=== PATIENT | male | born 1945 | race Caucasian/White ===

== ENCOUNTER 2017-07-11 18:06 | Inpatient (IN) ==
--- NOTE | 2017-07-11 18:27 | Emergency Department Report ---
Dizziness HPI - General Chief Complaint: Shortness of Breath/Dyspnea <Darryn Cobb - 07/11/17 22:21> Stated Complaint: fall <Darryn Cobb 07/11/17 22:21> Time Seen by Provider: 07/11/17 18:15 <Darryn Cobb Radha 07/11/17 22:21> Source: patient, EMS <Yuliana Dye 07/11/17 18:33> Mode of arrival: EMS <MarnieYuliana Pike 07/11/17 18:33> Limitations: no limitations <YvesclcarolYuliana Lashell Pike 07/11/17 18:33> - History of Present Illness HPI Narrative: Pt fell from a standing position while ambulating with cane. Pt denies he became dizzy or lightheaded. Pt then stayed on the floor to rest about 20 minutes when he became short of breath and diaphoretic which is when he called EMS. Pt was able to get him EMS self back to a standing position from the floor. EMS reports an initial SpO2 of 88 % on RA which resolved to mid 90s on 2 L/NC. Initial telemetry shows ST w/ PVCs. Pt states he had a heart cath about 2- 3 weeks ago which he reports the results as showing some scar tissue. This is his second fall this week. Pt reports using a cane for the last 2-3 weeks <Yuliana Dye 07/11/17 18:33> MD complaint: dizziness, difficulty walking <Yuliana Dye Glendy 07/11/17 18: 33> Onset (ago): minute(s) <Yuliana Dye Glendy 07/11/17 18:33> Timing: sudden onset <Yuliana Dye 07/11/17 18:33> Description: difficulty walking <Yuliana Dye Glendy 07/11/17 18:33> History of similar episodes: Yes (second fall this week) <Yuliana Dye 07/11/17 18:33> Severity: mild <Yuliana Dye 07/11/17 18:33> Relieving factors: nothing <Yuliana Dye 07/11/17 18:33> Exacerbating factors: nothing <Yuliana Dye 07/11/17 18:33> Associated symptoms: shortness of breath, syncope <Yuliana Dye 18:33> - Related Data Home Medications Medication Instructions Recorded Confirmed Aspirin [Aspir 81] 81 mg PO DAILY #0 08/28/09 07/11/17 Salt[place]-3 Fatty Acids/Fish Oil 1 cap PO DAILY #0 08/28/09 07/11/17 [[place] 3 1,000 mg Softgel] Trazodone HCl 50 mg PO HS #0 08/29/09 07/11/17 hydroCHLOROthiazide 25 tab PO DAILY #0 08/29/09 07/11/17 [Hydrochlorothiazide] Citalopram Hydrobromide 20 mg PO DAILY #0 03/31/12 07/11/17 [Citalopram HBr] tamsulosin 0.4 mg capsule 0.4 mg PO HS 90 Days #90 04/16/17 07/11/17 Fenofibrate Nanocrystallized 145 mg PO DAILY 07/11/17 07/11/17 [Fenofibrate] Gabapentin 600 mg PO AM 07/11/17 07/11/17 Gabapentin [Gabapentin] 900 mg PO PM 07/11/17 07/11/17 Metoprolol Succinate 25 mg PO WS 07/11/17 07/11/17 Metoprolol Succinate 50 mg PO AM 07/11/17 07/11/17 Potassium Chloride [K-Tab ER] 20 meq PO BID 07/11/17 07/11/17 Previous Rx's Medication Instructions Recorded zolpidem 10 mg tablet 10 mg PO HS #90 tab 06/22/17 Lasix (Furosemide) 40 mg tablet 40 mg PO BID #60 tab 07/09/17 <Darryn Cobb 07/11/17 22:21> Allergies Allergy/AdvReac Type Severity Reaction Status Date / Time ampicillin Allergy Intermediate RASH Verified 07/11/17 18:32 <Darryn Cobb 07/11/17 22:21> Review of Systems All systems: reviewed and negative except as stated <Yuliana Dye 07/19 18:33> Cardiovascular: Reports: syncope. Denies: chest pain, palpitations, dyspnea on exertion <Yuliana Dye 07/11/17 18:33> Respiratory: Reports: dyspnea <Yuliana Dye 07/11/17 18:33> FOR[facility]LY [facility] Patient Stated Medical History Glaucoma Yes Cardiac Arrhythmia Yes Congestive Heart Failure Yes Hypertension Yes Other GI Yes: Obesity Hx Benign Prostatic Yes Hyperplasia Hx Kidney Stones Yes Osteoarthritis Yes Other Behavioral Health Yes: difficulty sleeping Clinic Medical History (Last Reviewed 04/16/17 @ 14:36 by PIPE Saavedra) Glaucoma (Chronic Medical) HTN (hypertension) (Chronic Medical) High triglycerides (Chronic Medical) Kidney stones (Chronic Medical) Lumbar disc disease (Chronic Medical) Obesity (Chronic Medical) Osteoarthritis of left hip (Chronic Medical) <Darryn Cobb 07/11/17 22:21> Surgical History: L hip replacement <Yuliana Dye 07/11/17 18:33> Family History: Family History (Last Reviewed 04/16/17 @ 14:36 by PIPE Saavedra) Father , 72 Myocardial infarct Mother , 59 Myocardial infarct <Darryn Cobb 07/11/17 22:21> - Social History Smoking status: Never smoker <Yuliana Dye 07/11/17 18:33> Physical Exam - Limitations Limitations: no limitations <Yuliana Dye 07/11/17 18:33> - General General appearance: alert, in distress (mild distress) <Yuliana Dye 07/11/17 18:33> - Normal Exams: Head:: Normocephalic without trauma <Yuliana Dye 07/11/17 18:33> Eyes:: Pupils are PERRLA w/ EOMI <Yuliana Dye 07/11/17 18:33> ENMT:: No facial trauma <Yuliana Dye 07/11/17 18:33> Neck:: Full range of motion <Yuliana Dye 07/11/17 18:33> Chest/Respirations:: Clear all suarez, with good airflow (sightl tachypnea) < Yuliana Dye 07/11/17 18:38> Abdomen:: Bowel sounds positive, soft, non-tender, non-distended <Yuliana Dye 07/11/17 18:33> Musculoskeletal:: No tenderness, or deformity noted, good range of motion < Yuliana Dye 07/11/17 18:33> Neurological:: Patient is alert, and oriented <Yuliana Dye 07/11/17 18:33> Psychiatric:: Patient exhibits, appropriate attention, emotion and affect < Yuliana Dye 07/11/17 18:33> - Cardiovascular Cardiovascular exam: Present: tachycardia, irregular rhythm <Yuliana Dye 07/11/17 18:33> - Expanded Skin Exam Type of lesion: Present: abrasion <Yuliana Dye 07/11/17 18:33> Distribution: RLE <Yuliana Dye 07/11/17 18:33> Description: Present: erythematous (Ecchymotic abrasion to left toe and anterior left foot, Ulcerated scabbed wound to right ankle from previous fall) <Yuliana Dye 07/11/17 18:33> Course - Consultations Consultation #1: Dr Vazquez <Yuliana Dye 07/11/17 20:18> Time: 19:40 <Yuliana Dye 07/11/17 20:18> Consultation #2: Dr Marte <Yuliana Dye 07/11/17 20:18> Time: 19:50 (admit med tele) <Yuliana Dye 07/11/17 20:18> Vital Signs Temperature 98.3 F 07/11/17 18:10 Temperature 98.3 F 07/11/17 18:10 Pulse Rate 118 H 07/11/17 18:15 Respiratory Rate 27 H 07/11/17 18:15 Blood Pressure 148/72 H 07/11/17 18:15 Pulse Oximetry 92 07/11/17 18:15 <Darryn Cobb - 07/11/17 22:21> Vital Signs Temperature 98.3 F 07/11/17 18:10 Temperature 98.3 F 07/11/17 18:10 Pulse Rate 118 H 07/11/17 18:15 Respiratory Rate 27 H 07/11/17 18:15 Blood Pressure 148/72 H 07/11/17 18:15 Pulse Oximetry 92 07/11/17 18:15 <Yuliana Dye 07/11/17 18:38> Dizziness - MDM Narrative Medical decision making narrative: Due to elevated D-dimer CTA chest is ordered and patient is unable to tolerate CTA. Accepting physician is notified and Lovenox 1 mg / kg is ordered by accepting provider and CTA will be obtained when patient is able to tolerate further evaluation and treatment. Lasix and potassium supplementation given in ED. <Darryn Cobb - 07/11/17 22:21> Pt labs reviewed, FLuids started and PO potassium given. EKG shows ST with a 1st degree AV block as well as a left fasicular block. ALthough CXR was a poor inspriratory film DR Cobb reads as potential fluid overload. D DImer elevated will follow up with Ct. Dr George mccormick wishes to be consulted after admit. Dr Pedersen wishes to admit to medical tele. <Yuliana Dye - 07/11/17 20:18> - Differential Diagnosis Likely: benign paroxysmal positional vertigo, orthostatic hypotension, transient cerebral ischemia <Yuliana Dye - 07/11/17 18:33> - Medical Records Attestation: I reviewed the patient's medical records. <Yuliana Dye - 07/11/17 20:18> - Lab Data Attestation: I reviewed the patient's lab results. <Yuliana Dye 07/11 20:18> Result diagrams: 07/11/17 18:16 07/11/17 22:02 <Darryn Cobb - 07/11/17 22:21> Lab Results 07/11/17 07/11/17 07/11/17 Range/Units 18:16 18:16 18:16 WBC 10.3 (4.5-11.0) T/MM3 RBC 4.89 (4.50-5.90) M/MM3 Hgb 15.4 (13.5-17.5) GM/DL Hct 45.3 (41-53) % MCV 92.6 (80-100) UM3 MCH 31.5 (26-34) UUG MCHC 34.0 (31-37) GM/DL RDW Std Deviation 44.0 (36.9-50.2) FL Plt Count 200 (130-400) T/MM3 MPV 9.6 (9.4-12.4) UM3 Immature Gran % (Auto) 0.2 (0.0-0.5) % Neut % (Auto) 45.6 (33-66) % Lymph % (Auto) 42.6 (23-45) % Sampson % (Auto) 9.6 H (0-9.0) % Eos % (Auto) 1.5 (0-4) % Baso % (Auto) 0.5 (0-2) % Neut # 4.7 (1.8-7.7) T/MM3 Lymph # 4.4 (1-4.8) T/MM3 Sampson # 1.0 H (0-0.8) T/MM3 Eos # 0.2 (0-0.5) T/MM3 Baso # 0.1 (0-0.2) T/MM3 Abs Immat Gran (auto) 0.02 (0.00-0.03) T/MM3 D-Dimer (0-230) NG/ML Turbidity < 20 (0-20) Sodium 148 H (134-144) MEQ/L Potassium 3.0 L (3.6-5) MEQ/L Chloride 102 (98-107) MEQ/L Carbon Dioxide 33 H (22-30) MEQ/L Anion Gap 13 (5-15) MEQ/L BUN 27.0 H (9-20) MG/DL Creatinine 1.2 (0.8-1.5) MG/DL GFR Calculation 60 BUN/Creatinine Ratio 23 (6-26) RATIO Glucose 159 H (75-110) MG/DL Calculated Osmolality 292 H (261-280) MOSM/KG Calcium 11.5 H (8.4-10.2) MG/DL Magnesium (1.6-2.3) MG/DL Total Bilirubin 1.00 (0.20-1.30) MG/DL Icterus Index < 2 (0-7) AST 36 (17-59) U/L ALT 36 (21-72) U/L Alkaline Phosphatase 50 (38-126) U/L Troponin I 0.019 (0-0.12) ng/ml B-Natriuretic Peptide 277 H (0-175) pg/mL Total Protein 8.4 H (6.3-8.2) G/DL Albumin 4.7 (3.5-5.0) G/DL Globulin 3.7 H (2.4-3.6) G/DL Albumin/Globulin Ratio 1.3 (1.1-2.2) RATIO Specimen Hemolysis < 15.0 (0-25) 07/11/17 07/11/17 Range/Units 18:16 18:16 WBC (4.5-11.0) T/MM3 RBC (4.50-5.90) M/MM3 Hgb (13.5-17.5) GM/DL Hct (41-53) % MCV (80-100) UM3 MCH (26-34) UUG MCHC (31-37) GM/DL RDW Std Deviation (36.9-50.2) FL Plt Count (130-400) T/MM3 MPV (9.4-12.4) UM3 Immature Gran % (Auto) (0.0-0.5) % Neut % (Auto) (33-66) % Lymph % (Auto) (23-45) % Sampson % (Auto) (0-9.0) % Eos % (Auto) (0-4) % Baso % (Auto) (0-2) % Neut # (1.8-7.7) T/MM3 Lymph # (1-4.8) T/MM3 Sampson # (0-0.8) T/MM3 Eos # (0-0.5) T/MM3 Baso # (0-0.2) T/MM3 Abs Immat Gran (auto) (0.00-0.03) T/MM3 D-Dimer 640 H (0-230) NG/ML Turbidity (0-20) Sodium (134-144) MEQ/L Potassium (3.6-5) MEQ/L Chloride (98-107) MEQ/L Carbon Dioxide (22-30) MEQ/L Anion Gap (5-15) MEQ/L BUN (9-20) MG/DL Creatinine (0.8-1.5) MG/DL GFR Calculation BUN/Creatinine Ratio (6-26) RATIO Glucose (75-110) MG/DL Calculated Osmolality (261-280) MOSM/KG Calcium (8.4-10.2) MG/DL Magnesium 2.0 (1.6-2.3) MG/DL Total Bilirubin (0.20-1.30) MG/DL Icterus Index (0-7) AST (17-59) U/L ALT (21-72) U/L Alkaline Phosphatase (38-126) U/L Troponin I (0-0.12) ng/ml B-Natriuretic Peptide (0-175) pg/mL Total Protein (6.3-8.2) G/DL Albumin (3.5-5.0) G/DL Globulin (2.4-3.6) G/DL Albumin/Globulin Ratio (1.1-2.2) RATIO Specimen Hemolysis (0-25) <Cobb,Darryn C - 07/11/17 22:21> Lab Results 07/11/17 07/11/17 07/11/17 Range/Units 18:16 18:16 18:16 WBC 10.3 (4.5-11.0) T/MM3 RBC 4.89 (4.50-5.90) M/MM3 Hgb 15.4 (13.5-17.5) GM/DL Hct 45.3 (41-53) % MCV 92.6 (80-100) UM3 MCH 31.5 (26-34) UUG MCHC 34.0 (31-37) GM/DL RDW Std Deviation 44.0 (36.9-50.2) FL Plt Count 200 (130-400) T/MM3 MPV 9.6 (9.4-12.4) UM3 Immature Gran % (Auto) 0.2 (0.0-0.5) % Neut % (Auto) 45.6 (33-66) % Lymph % (Auto) 42.6 (23-45) % Sampson % (Auto) 9.6 H (0-9.0) % Eos % (Auto) 1.5 (0-4) % Baso % (Auto) 0.5 (0-2) % Neut # 4.7 (1.8-7.7) T/MM3 Lymph # 4.4 (1-4.8) T/MM3 Sampson # 1.0 H (0-0.8) T/MM3 Eos # 0.2 (0-0.5) T/MM3 Baso # 0.1 (0-0.2) T/MM3 Abs Immat Gran (auto) 0.02 (0.00-0.03) T/MM3 D-Dimer (0-230) NG/ML Turbidity < 20 (0-20) Sodium 148 H (134-144) MEQ/L Potassium 3.0 L (3.6-5) MEQ/L Chloride 102 (98-107) MEQ/L Carbon Dioxide 33 H (22-30) MEQ/L Anion Gap 13 (5-15) MEQ/L BUN 27.0 H (9-20) MG/DL Creatinine 1.2 (0.8-1.5) MG/DL GFR Calculation 60 BUN/Creatinine Ratio 23 (6-26) RATIO Glucose 159 H (75-110) MG/DL Calculated Osmolality 292 H (261-280) MOSM/KG Calcium 11.5 H (8.4-10.2) MG/DL Magnesium (1.6-2.3) MG/DL Total Bilirubin 1.00 (0.20-1.30) MG/DL Icterus Index < 2 (0-7) AST 36 (17-59) U/L ALT 36 (21-72) U/L Alkaline Phosphatase 50 (38-126) U/L Troponin I 0.019 (0-0.12) ng/ml B-Natriuretic Peptide 277 H (0-175) pg/mL Total Protein 8.4 H (6.3-8.2) G/DL Albumin 4.7 (3.5-5.0) G/DL Globulin 3.7 H (2.4-3.6) G/DL Albumin/Globulin Ratio 1.3 (1.1-2.2) RATIO Specimen Hemolysis < 15.0 (0-25) 07/11/17 07/11/17 Range/Units 18:16 18:16 WBC (4.5-11.0) T/MM3 RBC (4.50-5.90) M/MM3 Hgb (13.5-17.5) GM/DL Hct (41-53) % MCV (80-100) UM3 MCH (26-34) UUG MCHC (31-37) GM/DL RDW Std Deviation (36.9-50.2) FL Plt Count (130-400) T/MM3 MPV (9.4-12.4) UM3 Immature Gran % (Auto) (0.0-0.5) % Neut % (Auto) (33-66) % Lymph % (Auto) (23-45) % Sampson % (Auto) (0-9.0) % Eos % (Auto) (0-4) % Baso % (Auto) (0-2) % Neut # (1.8-7.7) T/MM3 Lymph # (1-4.8) T/MM3 Sampson # (0-0.8) T/MM3 Eos # (0-0.5) T/MM3 Baso # (0-0.2) T/MM3 Abs Immat Gran (auto) (0.00-0.03) T/MM3 D-Dimer 640 H (0-230) NG/ML Turbidity (0-20) Sodium (134-144) MEQ/L Potassium (3.6-5) MEQ/L Chloride (98-107) MEQ/L Carbon Dioxide (22-30) MEQ/L Anion Gap (5-15) MEQ/L BUN (9-20) MG/DL Creatinine (0.8-1.5) MG/DL GFR Calculation BUN/Creatinine Ratio (6-26) RATIO Glucose (75-110) MG/DL Calculated Osmolality (261-280) MOSM/KG Calcium (8.4-10.2) MG/DL Magnesium 2.0 (1.6-2.3) MG/DL Total Bilirubin (0.20-1.30) MG/DL Icterus Index (0-7) AST (17-59) U/L ALT (21-72) U/L Alkaline Phosphatase (38-126) U/L Troponin I (0-0.12) ng/ml B-Natriuretic Peptide (0-175) pg/mL Total Protein (6.3-8.2) G/DL Albumin (3.5-5.0) G/DL Globulin (2.4-3.6) G/DL Albumin/Globulin Ratio (1.1-2.2) RATIO Specimen Hemolysis (0-25) <Yuliana Dye 07/11/17 18:38> - Radiology Data Attestation: I reviewed the patient's radiology results. <Yuliana Dye 07/11/17 20:18> read per Dr Cobb <Yuliana Dye 07/11/17 20:18> - EKG Data EKG #1 Rate: tachycardia <Yuliana Dye 07/11/17 20:18> Heart block present: 1st Degree <Yuliana Dye 07/11/17 20:18> Ectopy: PVC <Yuliana Dye 07/11/17 20:18> Disposition Clinical Impression: Hypoxia, Hypokalemia Congestive heart failure Qualifiers: Congestive heart failure type: unspecified congestive heart failure type Congestive heart failure chronicity: chronic Qualified Code(s): I50.9 - Heart failure, unspecified <Darryn Cobb 07/11/17 22:21> Disposition: 02 To [facility] [place] Acute Care <Darryn Cobb 07/11/17 22:21> Condition: Stable for Transport <Darryn Cobb 07/11/17 22:21> Prescriptions: No Action hydroCHLOROthiazide [Hydrochlorothiazide] 25 tab PO DAILY #0 Trazodone HCl 50 mg PO HS #0 Metoprolol Succinate 25 mg PO WS Gabapentin [Gabapentin] 900 mg PO PM Gabapentin 600 mg PO AM Potassium Chloride [K-Tab ER] 20 meq PO BID Fenofibrate Nanocrystallized [Fenofibrate] 145 mg PO DAILY Aspirin [Aspir 81] 81 mg PO DAILY #0 Saltillo-3 Fatty Acids/Fish Oil [[place] 3 1,000 mg Softgel] 1 cap PO DAILY #0 Citalopram Hydrobromide [Citalopram HBr] 20 mg PO DAILY #0 Metoprolol Succinate 50 mg PO AM zolpidem 10 mg tablet 10 mg PO HS #90 tab Lasix (Furosemide) 40 mg tablet 40 mg PO BID #60 tab <Darryn Cobb 07/11 22:21> Referrals: Frank Bajwa MD [Family Provider] - <Darryn Cobb 22:21> Time of Disposition: 21:48 <Yuliana Dye 07/11/17 21:48> - Seen By: midlevel <Yuliana Dye 07/11/17 21:48>
[2017-07-11] MEDS ORDERED: NS 1,000 ML IV SCH (19:00)
--- OUTSIDE RECORDS SUMMARY | 2017-07-11 19:27 | External Medical Summary | Referral Summary ---
:1945 Author Organization [facility] Address [address] [place] [address] YADIEL Schreiber [id number] Care Team Providers Name Role Phone Arnulfo Mauricio Cadet Primary Care Physician Encounter VC Date(s): 10/30/15 - 10/30/15 [facility] [address] [place] [address] YADIEL Schreiber [phone] [place] Discharge Diagnosis: Kidney stone Discharge Disposition: 01-Home or Self Care Attending Physician: Jabari Rodgers JR, MD Admitting Physician: Jabari Rodgers JR, MD Vital Signs Most recent to oldest [Reference Range]: 1 Peripheral Pulse Rate [60-100 bpm] 87 bpm (10/30/15 11:11 AM) Blood Pressure [90-140/60-90 mmHg] 126/68 mmHg (10/30/15 11:11 AM) Problem List Condition Effective Dates Status Health Status Informant Ineffective airway Active clearance(Confirmed)1 Microscopic hematuria(Confirmed) Active Morbid obesity(Confirmed) Active 1Problem added automatically by system based on initiation of Ineffective Airway Clearance Plan of Care Allergies, Adverse Reactions, Alerts Substance Reaction Severity Status ampicillin Rash Active Medications allopurinol 300 mg oral tablet See Instructions, Take 1 tablet by mouth every day, # 90 tabs, eRx: [facility], Take 1 tablet by mouth every day Start Date: 09/07/15 Status: Orderedaspirin 81 mg oral tablet 81 mg 1 tabs, Oral, Daily, 0 Refill(s) Start Date: 08/21/14 Status: Orderedcitalopram 20 mg oral tablet 20 mg 1 tabs, Oral, Daily, 0 Refill(s) Start Date: 08/21/14 Status: OrderedCPAP Machine (DME) See Instructions, # 1 Each, 0 Refill(s), Supply Start Date: 09/21/15 Status: Ordereddorzolamide-timolol 2.23%-0.68% ophthalmic solution 1 drops, Eye-Both, BID, 0 Refill(s) Start Date: 07/11/15 Status: Orderedfenofibrate 145 mg oral tablet 145 mg 1 tabs, Oral, Daily, 0 Refill(s) Start Date: 07/11/15 Status: OrderedFish Oil 2,000 mg, Oral, BID, 0 Refill(s) Start Date: 08/21/14 Status: Orderedgabapentin 300 mg oral capsule 600 mg 2 caps, Oral, BID, 1200,2100, 0 Refill(s) Start Date: 08/15/14 Status: OrderedHome Oxygen (DME) See Instructions, # 1 Each, 0 Refill(s), Supply Start Date: 09/21/15 Status: Orderedhydrochlorothiazide 25 mg oral tablet 25 mg 1 tabs, Oral, Daily, 0 Refill(s) Start Date: 08/15/14 Status: OrderedLumigan 0.01% ophthalmic solution 1 drops, Eye-Both, Bedtime (once a day), 0 Refill(s) Start Date: 07/11/15 Status: Orderedmetoprolol tartrate 50 mg oral tablet See Instructions, 50mg in AM 25 at hs, 0 Refill(s) Start Date: 09/21/15 Status: Orderedmultivitamin 1 tabs, Oral, Daily, 0 Refill(s) Start Date: 07/11/15 Status: OrderedNiaspan ER 500 mg oral tablet, extended release 500 mg 1 tabs, Oral, Bedtime (once a day), 0 Refill(s) Start Date: 08/21/14 Status: Orderedtamsulosin 0.4 mg oral capsule See Instructions, Take 1 capsule by mouth daily, # 90 caps, eRx: [facility], Take 1 capsule by mouth daily Start Date: 09/07/15 Status: OrderedtraZODone 50 mg oral tablet 50 mg 1 tabs, Oral, Bedtime (once a day), 0 Refill(s) Start Date: 08/21/14 Status: Orderedzolpidem 10 mg oral tablet 10 mg 1 tabs, Oral, Bedtime (once a day), 0 Refill(s) Start Date: 08/21/14 Status: Ordered Results No data available for this section Immunizations Vaccine Date Refusal Reason pneumococcal 23-polyvalent vaccine 07/11/15 Procedures Procedure Date Related Diagnosis Body Site Lithotripsy of kidney 10/10/15 Cystoscopy1 10/03/15 Lithotripsy of kidney2 10/03/15 Cystoscopy Insertion-(R) double J stent Renal lithotripsy-(R) Surgery-Transurethral removal of Right double J stent 1Insertion of right stent.2Right. Social History Social History Type Response Smoking Status Never smoker Assessment and Plan No data available for this section
--- OUTSIDE RECORDS SUMMARY | 2017-07-11 19:27 | External Medical Summary | Referral Summary ---
:1945 Author Organization [facility] Address [address] [place] [address] YADIEL Schreiber [phone] Care Team Providers Name Role Phone Mauricio Arredondo Primary Care Physician Encounter VC Date(s): 11/15/15 - 11/15/15 [facility] [address] [place] [address] YADIEL Schreiber [phone] [place] Discharge Diagnosis: Hyperuricemia Discharge Diagnosis: Right kidney stone Discharge Diagnosis: Kidney stones Discharge Diagnosis: Morbid obesity Discharge Disposition: 01-Home or Self Care Attending Physician: Jabari Rodgers JR, MD Admitting Physician: Jabari Rodgers JR, MD Referring Physician: Mauricio Arredondo MD Vital Signs No data available for this section Problem List Condition Effective Dates Status Health [...] Smoking Status Never smoker Assessment and Plan Extracted from: Title: Ambulatory Patient Education Author: Jabari Rodgers JR, MD Date: Follow Up With: Where: When: Mauricio Bower [address] [place], [place] [id number] Business (1) Within 3 to 5 days Comments: Follow Up With: Where: When: Jabari Rodgers [address] [place] [address] Drive; [place] [address] [employer] (1) In 6 months 05/15/2016 Comments: Extracted from: Title: Office Visit Note Author: Jabari Rodgers JR, MD Date: 11/15/15 Assessment/Plan 1.Kidney stones, Kidney stone, Right kidney stone I reviewed the images of the KUB x-ray today I could not see any difference stone present on the right or left kidney. Patient instructed to drink 8-10 glasses of liquids a day, reduce intake of c affeine, red meat, nuts and too much salted food. I would like to see him again in 6 monthsrepeat KUB x-ray on coming back. Ordered: Kidney Stone Analysis-[place] Postoperative Est [id number] XR Abdomen AP 2.Hyperuricemia 3.Morbid obesity Patient had lost 20 pounds since I saw him
--- OUTSIDE RECORDS SUMMARY | 2017-07-11 19:27 | External Medical Summary | Referral Summary ---
:1945 [address] [facility] Address [address] [place] [address] Care Team Providers Name Role Phone Mauricio Arredondo Primary Care Physician Encounter VC Date(s): 07/11/15 - 07/13/[address] [facility] [address], [place] [address] Discharge Diagnosis: Interstitial lung disease Discharge Diagnosis: Elevated diaphragm Final: POSTINFLAMMATORY PULMONARY FIBROSIS Final: Body Mass Index 40.0-44.9, Adult Final: PURE HYPERGLYCERIDEMIA Final: MORBID OBESITY Final: Insomnia, unspecified Final: DEPRESSIVE DISORDER, NOT ELSEWHERE CLASSIFIED Final: MONONEURITIS OF UNSPECIFIED SITE Final: UNSPECIFIED ESSENTIAL HYPERTENSION Final: NEED FOR PROPHYLACTIC VACCINATION AGAINST STREPTOCOCCUS PNEUMONIAE [ PNEUMOCOCCUS] Discharge Disposition: 01-Home or Self Care Attending Physician: Olayinka Rodriguez MD Admitting Physician: Olayinka Rodriguez MD Vital Signs Most recent to oldest [Reference Range]: 1 Temperature Oral [35.8-37.3 degC] 36.8 degC (07/13/15 4:00 PM) Peripheral Pulse Rate [60-100 bpm] 79 bpm (07/13/15 4:00 PM) Heart Rate Monitored [60-100 bpm] 69 bpm (07/12/15 3:33 AM) Respiratory Rate [14-20 br/min] 20 br/min (07/13/15 4:00 PM) Blood Pressure [90-140/60-90 mmHg] 122/73 mmHg (07/13/15 4:00 PM) Mean Arterial Pressure, Cuff 112 mmHg (07/11/15 5:00 PM) SpO2 94 % (07/13/15 4:00 PM) Problem List Condition Effective Dates Status Health Status Informant Ineffective airway Active clearance(Confirmed)1 Microscopic hematuria(Confirmed) Active Morbid obesity(Confirmed) Active 1Problem added automatically by system based on initiation of Ineffective Airway Clearance Plan of Care Allergies, Adverse Reactions, Alerts Substance Reaction Severity Status ampicillin Rash Active Medications allopurinol 300 mg oral tablet See Instructions, Take 1 tablet by mouth every day, # 90 tabs, 1 Refill(s), eRx : [facility], Take 1 tablet by mouth every day Start Date: 12/10/15 Status: Orderedaspirin 81 mg oral tablet 81 [...] capsule by mouth daily, # 90 caps, 1 Refill(s), eRx: [facility],Take 1 capsule by mouth daily Start Date: 12/10/15 Status: OrderedtraZODone 50 mg oral tablet 50 mg 1 tabs, Oral, Bedtime (once a day), 0 Refill(s) Start Date: 08/21/14 Status: Orderedzolpidem 10 mg oral tablet 10 mg 1 tabs, Oral, Bedtime (once a day), 0 Refill(s) Start Date: 08/21/14 Status: Ordered Results Blood Gases Most recent to oldest [Reference Range]: 1 pH [7.35-7.45] 7.42 (07/13/15 10:45 AM) pCO2 Art [35-45 mmHg] 39 mmHg (07/13/15 10:45 AM) Bicarbonate [22-26 mEq/L] 25 mEq/L (07/13/15 10:45 AM) Base Excess Art [0-2] 0 (07/13/15 10:45 AM) O2 Sat Art [90.0-97.0 %] 92.1 % (07/13/15 10:45 AM) pO2 Art [80-100 mmHg] 63 mmHg *LOW* (07/13/15 10:45 AM) O2 Panel Room Air (07/13/15 10:45 AM) Spec Site Radial-L (07/13/15 10:45 AM) Hematology Most recent to oldest [Reference Range]: 1 WBC [4.8-10.8 10*3/uL] 8.4 10*3/uL (07/11/15 12:16 PM) RBC [4.60-6.20] 4.83 (07/11/15 12:16 PM) Hgb [14.0-18.0 gm/dL] 16.1 gm/dL (07/11/15 12:16 PM) Hct [42.0-52.0 %] 45.7 % (07/11/15 12:16 PM) MCV [82.0-99.0 fL] 94.6 fL (07/11/15 12:16 PM) MCH [27.0-32.0 pg] 33.3 pg *HI* (07/11/15 12:16 PM) MCHC [32.0-36.0 gm/dL] 35.2 gm/dL (07/11/15 12:16 PM) RDW [11.5-14.5 %] 13.3 % (07/11/15 12:16 PM) Platelet [150-400 10*3/uL] 160 10*3/uL (07/11/15 12:16 PM) MPV [9.4-12.3 fL] 9.8 fL (07/11/15:16 PM) Immature Granulocytes [0.0-1.0 %] 0.1 % (07/11/15:16 PM) Neutrophils [51-75 %] 42 % *LOW* (07/11/15:16 PM) Lymphocytes [20-46 %] 45 % (07/11/15 12:16 PM) Monocytes [4-11 %] 11 % (07/11/15 12:16 PM) Eosinophils [0-4 %] 1 % (07/11/15 12:16 PM) Basophils [0-2 %] 1 % (07/11/15:16 PM) Neutro Absolute [1.90-7.00 10*3] 3.47 10*3 (07/11/15 12:16 PM) Lymph Absolute [0.80-3.30 10*3] 3.79 10*3 *HI* (07/11/15 12:16 PM) [place] Absolute [0.30-1.00 10*3] 0.91 10*3 (07/11/15 12:16 PM) Eos Absolute [0.00-0.50 10*3] 0.12 10*3 (07/11/15 12:16 PM) Baso Absolute [0.00-0.20 10*3] 0.05 10*3 (07/11/15 12:16 PM) Nucleated RBC Automated [0 /100 WBC] 0.0 /100 WBC (07/11/15 12:16 PM) Chemistry Most recent to oldest [Reference Range]: 1 Sodium Lvl [136-144 mEq/L] 143 mEq/L (07/12/15 5:21 AM) Potassium Lvl [3.6-5.1 mEq/L] 3.4 mEq/L *LOW* (07/12/15:21 AM) Chloride [99-109 mEq/L] 106 mEq/L (07/12/15 5:21 AM) CO2 [22-32 mEq/L] 29 mEq/L (07/12/15:21 AM) AGAP [3-20] 8 (07/12/15:21 AM) BUN [4-20 mg/dL] 18 mg/dL (07/12/15:21 AM) Glucose Lvl [70-100 mg/dL] 101 mg/dL *HI* (07/12/15: AM) Creatinine Lvl [0.64-1.27 mg/dL] 0.90 mg/dL (07/12/15:21 AM) eGFR [>60] >60 1 (07/12/15: AM) Calcium Lvl [8.6-10.0 mg/dL] 9.6 mg/dL (07/12/15:21 AM) Albumin Lvl [3.5-4.8 gm/dL] 3.9 gm/dL (07/12/15:21 AM) Total Protein [6.1-7.9 gm/dL] 7.5 gm/dL (07/11/15 12:16 PM) Globulin [1.9-4.3 gm/dL] 3.1 gm/dL (07/11/15 12:16 PM) ALT [17-63 U/L] 24 U/L (07/11/15 12:16 PM) AST [15-41 U/L] 25 U/L (07/11/15 12:16 PM) Alk Phos [26-104 U/L] 31 U/L (07/11/15 12:16 PM) Bili Total [0.2-1.2 mg/dL] 1.1 mg/dL 2 (07/11/15 12:16 PM) Magnesium Lvl [1.8-2.5 mg/dL] 1.8 mg/dL (07/12/15 5:21 AM) Phosphorus [2.4-4.7 mg/dL] 2.7 mg/dL 3 (07/12/15 5:21 AM) BNP [0-99 pg/mL] 82 pg/mL (07/11/15 12:16 PM) Troponin [<0.06 ng/mL] <0.05 ng/mL (07/11/15 12:16 PM) Chol [0-200 mg/dL] 174 mg/dL (07/12/15 5:21 AM) Trig [0-150 mg/dL] 584 mg/dL *HI* (07/12/15 5:21 AM) HDL [>40 mg/dL] 27 mg/dL *ABN* (07/12/15 5:21 AM) LDL [0-100] INVALID 4 (07/12/15 5:21 AM) VLDL Cholesterol [0-30] INVALID (07/12/15 5:21 AM) Cardiac Risk [0.0-5.7] 6.4 *HI* (07/12/15 5:21 AM) TSH with Reflex Free T4 [0.35-5.50] 1.23 (07/11/15 12:16 PM) 1Result Comment: Multiply eGFR results by 1.21 for race.2Result Comment: Naproxen, specifically the metabolite O-desmethylnaproxen, may cause spurious elevation in Total Bilirubin levels.3Result Comment: High dosages of liposomal Amphotericin B (AmBisome) therapy or other drug preparations that use a liposomal envelope to facilitate drug delivery may cause falsely elevated results for phosphorus.4Result Comment: LDL and VLDL are invalid with Triglyceride greater than 400. Immunizations Vaccine Date Refusal Reason pneumococcal 23-polyvalent [...]
--- OUTSIDE RECORDS SUMMARY | 2017-07-11 19:27 | External Medical Summary | Referral Summary ---
:1945 Author Organization [facility] Address [address] [place] [address] Y[place] Schreiber [address] Care Team Providers Name Role Phone Arnulfo Mauricio Cadet Primary Care Physician Encounter VC Date(s): 03/20/15 - 03/20/15 [facility] [address] [place] [address] [place] Schre[place] [phone] [place] Discharge Diagnosis: Kidney stones Discharge Disposition: 01-Home or Self Care Attending Physician: Jabari Rodgers JR, MD Admitting Physician: Jabari Rodgers JR, MD Referring Physician: Rory Higgins Vital Signs Most recent to oldest [Reference Range]: 1 Peripheral Pulse Rate [60-100 bpm] 72 bpm (03/20/15 2:27 PM) Blood Pressure [90-140/60-90 mmHg] 154/78 mmHg *HI* (03/20/15 2:27 PM) Problem List Condition Effective Dates Status Health Status Informant Ineffective airway Active clearance(Confirmed)1 Microscopic hematuria(Confirmed) Active Morbid obesity(Confirmed) Active 1Problem added automatically by system based on initiation of Ineffective Airway Clearance Plan of Care Allergies, Adverse Reactions, Alerts Substance Reaction Severity Status ampicillin Rash Active Medications allopurinol 300 mg, Oral, Daily, 0 Refill(s) Start Date: 07/11/15 Status: Orderedaspirin 81 mg oral tablet 81 mg 1 tabs, Oral, Daily, 0 Refill(s) Start Date: 08/21/14 Status: Orderedatenolol 50 mg, Oral, BID, 0 Refill(s) Start Date: 07/11/15 Status: Orderedcitalopram 20 mg oral tablet 20 mg 1 tabs, Oral, Daily, 0 Refill(s) Start Date: 08/21/14 Status: Ordereddorzolamide-timolol 2.23%-0.68% ophthalmic solution 1 drops, Eye-Both, BID, 0 Refill(s) Start Date: 07/11/15 Status: Orderedfenofibrate 145 mg oral tablet 145 mg 1 tabs, Oral, Daily, 0 Refill(s) Start Date: 07/11/15 Status: OrderedFish Oil 2,000 mg, Oral, BID, 0 Refill(s) Start Date: 08/21/14 Status: Orderedgabapentin 300 mg oral capsule 600 mg 2 caps, Oral, BID, 1200,2100, 0 Refill(s) Start Date: 08/15/14 Status: Orderedhydrochlorothiazide 25 mg oral tablet 25 mg 1 tabs, Oral, Daily, 0 Refill(s) Start Date: 08/15/14 Status: OrderedLumigan 0.01% ophthalmic solution 1 drops, Eye-Both, Bedtime (once a day), 0 Refill(s) Start Date: 07/11/15 Status: Orderedmultivitamin 1 tabs, Oral, Daily, 0 Refill(s) Start Date: 07/11/15 Status: OrderedNiaspan ER 500 mg oral tablet, extended release 500 mg 1 tabs, Oral, Bedtime (once a day), 0 Refill(s) Start Date: 08/21/14 Status: Orderedtamsulosin 0.4 mg oral capsule 0.4 mg 1 caps, Oral, Bedtime (once a day), 0 Refill(s) Start Date: 07/11/15 Status: OrderedtraZODone 50 mg oral tablet 50 [...] Procedures Procedure Date Related Diagnosis Body Site Cystoscopy Insertion-(R) double J stent Renal lithotripsy-(R) Surgery-Transurethral removal of Right double J stent Social History Social History Type Response Smoking Status Never smoker Assessment and Plan Extracted from: Title: Ambulatory Patient Education Author: Jabari Rodgers JR, MD Date: Follow Up With: Where: When: Jabari Rodgers [address]; [place] [address] Business (1) In 6 months 09/20/2015 Comments: Follow Up With: Where: When: Mauricio Narayan [address] [place], [place] [phone] Business (1) Within 3 to 5 days Comments: Follow Up With: Where: When: Jabari Rodgers [address]; [place] [address] Business (1) In 6 months 09/20/2015 Comments: Extracted from: Title: Office Visit Note Author: Jabari Rodgers JR, MD Date: 03/20/15 Assessment/Plan Kidney stones 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 Recheck in my office in 6 months. Continue th Zyloprim 300 mg once a day. KUB x-ray on coming back. I reviewed the film with the patient which showed a small stone on the right kidney. This was a 30 minute face to face visit with 1/2 of the visit devoted to counseling the patient. Ordered: Office Visit Level 3 Est 24804 Office Visit Level 4 Est 11354
--- OUTSIDE RECORDS SUMMARY | 2017-07-11 19:27 | External Medical Summary | Referral Summary ---
:1945 Author Organization [facility] Address [address] [place] [address] Y[place] Schreiber [address] Care Team Providers Name Role Phone Arredondo Mauricio Cadet Primary Care Physician Encounter VC Date(s): 09/21/15 - 09/21/15 [facility] [address] [place] [address] [place] Schre[place] [address]- Discharge Diagnosis: Morbid obesity Discharge Diagnosis: Microscopic hematuria Discharge Diagnosis: Essential hypertension Discharge Diagnosis: Kidney stones Discharge Disposition: 01-Home or Self Care Attending Physician: Jabari Rodgers JR, MD Admitting Physician: Jabari Rodgers JR, MD Vital Signs Most recent to oldest [Reference Range]: 1 Peripheral Pulse Rate [60-100 bpm] 100 bpm (09/21/15 3:11 PM) Blood Pressure [90-140/60-90 mmHg] 142/78 mmHg *HI* (09/21/15 3:11 PM) Problem List Condition Effective Dates Status [...] Follow Up With: Where: When: Jabari Rodgers [address] [place] [address] Drive; [place] [address] Business (1) In 2 weeks 10/05/2015 Comments: Follow Up With: Where: When: Mauricio Bower [address] [place], [place] [phone] Business (1) Within 3 to 5 days Comments: Extracted from: Title: Office Visit Note Author: Jabari Rodgers JR, MD Date: 09/21/15 Assessment/Plan 1.Morbid obesity patient is trying hard to loose weight 2.Microscopic hematuria could be attributed to the kidney stone on the right there are 2 of them 3.Essential hypertension continue atenolol and hydrochlorothiazide Kidney stones I reviewed the images of the KUB x-ray which should there are 2 stones if stones probably about 7 mm in diameter. Since the patient is taking aspirin will not be able to do the lithotripsy until about 7 days after the aspirin will be hold off. We'll plan to schedule insertion of right double-J stent stent under cystoscopic guidance and right renal lithotripsy. This double-J stent will remove 2 weeks after the last lithotripsy done. Patient might require 2 lithotripsies because there are 2 stones on the right kidneyabout 2 and half centimeter from each other. Procedures, risks, complications, and follow-up explained to patient with verbalize full understanding. Ordered: Office Visit Level 4 Est 14710
--- OUTSIDE RECORDS SUMMARY | 2017-07-11 19:27 | External Medical Summary | Referral Summary ---
:1945 Author Organization [facility] Address [address] [place] [address] Y[place] Schreiber [address] Care Team Providers Name Role Phone Mauricio Arredondo Primary Care Physician Encounter VC Date(s): 10/09/15 - 10/09/15 [facility] [address] [place] [address] [place]re[place] [phone] [place] Discharge Diagnosis: Hyperuricemia Discharge Diagnosis: Kidney stone Discharge Diagnosis: Peripheral neuropathy Discharge Diagnosis: Kidney stone Discharge Diagnosis: Obesity Discharge Diagnosis: Essential hypertension Discharge Disposition: -Home or Self Care Attending Physician: Jabari Rodgers JR, MD Admitting Physician: Jabari Rodgers JR, MD Referring Physician: Mauricio Arredondo MD Vital Signs Most recent to oldest [Reference Range]: 1 Peripheral Pulse Rate [60-100 bpm] 93 bpm (10/09/15 8:59 AM) Blood Pressure [90-140/60-90 mmHg] 140/78 mmHg (10/09/15 8:59 AM) Problem List Condition Effective Dates Status [...] Procedures Procedure Date Related Diagnosis Body Site Cystoscopy1 10/03/15 Lithotripsy of kidney2 10/03/15 Cystoscopy Insertion-(R) double J stent Renal lithotripsy-(R) Surgery-Transurethral removal of Right double J stent 1Insertion of right stent.2Right. Social History Social History Type Response Smoking Status Never smoker Assessment and Plan Extracted from: Title: Ambulatory Patient Education Author: Jabari Rodgers JR, MD Date: Follow Up With: Where: When: Mauricio Narayan [address] [place], [place] [phone] Business (1) Within 3 to 5 days Comments: Follow Up With: Where: When: Jabari Rodgers [address] [place] [address] Drive; [place] [address] Business (1) In 1 week 10/16/2015 Comments: Extracted from: Title: Office Visit Note Author: Jabari Rodgers JR, MD Date: 10/09/15 Assessment/Plan 1.Kidney stone, Kidney stone there are remnants of stone right kidney, patient is scheduled foradditional right renal lithotripsy and will remove the right double-J stent 2 weeks after the last lithotripsy is done. Continue straining all urine, drinking lots of liquids, reduce intake of caffeine, red meat nuts and too much salted food.. Continue taking tamsulosin hoping that it fragmented stones on the right kidney will come outfaster with the tamsulosin Ordered: Kidney Stone Analysis-[place] 2.Essential hypertension continue hydrochlorothiazide and metoprolol 3.Obesity patient is trying hard to loose weight 4.Hyperuricemia continue Alupent ultra 100 mg once a day Ordered: Postoperative Est 89607 5.Peripheral neuropathy continue gabapentin. Ordered: Postoperative Est 01561
--- OUTSIDE RECORDS SUMMARY | 2017-07-11 19:28 | External Medical Summary | Referral Summary ---
:1945 Author Organization [facility] Address [address] [place] [address] Y[place] Schreiber [address] Care Team Providers Name Role Phone Arredondo Mauricio Cadet Primary Care Physician Encounter VC Date(s): 03/20/15 - 03/20/15 [facility] [address] [place] [address] [place] Schre[place] [phone]- Discharge Diagnosis: Kidney stones Discharge Disposition: 01-Home [...] Date: Follow Up With: Where: When: Jabari Atkins[address]; [place] [address] Business (1) In 6 months 09/20/2015 Comments: Follow Up With: Where: When: Mauricio Narayan [address] [place], [place] [phone] Business (1) Within 3 to 5 days Comments: Follow Up With: Where: When: Jabari Atkins[address]; [place] [address] Business (1) In 6 months [...] patient. Ordered: Office Visit Level 3 Est 94345 Office Visit Level 4 Est 75577
--- OUTSIDE RECORDS SUMMARY | 2017-07-11 19:28 | External Medical Summary | Referral Summary ---
:1945 Author Organization [facility] Address [address] [place] [address] [place] Schreiber [address] Care Team Providers Name Role Phone Mauricio Arredondo Chichi Primary Care Physician Encounter VC Date(s): 03/20/15 - 03/20/15 [facility] [address] [place] [address] [place] [address] Discharge Diagnosis: Kidney stones Discharge Disposition: 01-Home [...] Date: Follow Up With: Where: When: Jabari [address]; [place] [address] Business (1) In 6 months 09/20/2015 Comments: Follow Up With: Where: When: Mauricio Bower [address] [place] [address] Business (1) Within 3 to 5 days Comments: Follow Up With: Where: When: Jabari [address]; [place] [address] Business (1) In 6 months [...] patient. Ordered: Office Visit Level 3 Est 98502 Office Visit Level 4 Est 56604
--- OUTSIDE RECORDS SUMMARY | 2017-07-11 19:28 | External Medical Summary | Referral Summary ---
:1945 Author Organization [facility] Address [address] [place] [address] [place] Schreiber [address] Care Team Providers Name Role Phone Arredondo Mauricio Cadet Primary Care Physician Encounter VC Date(s): 03/20/15 - 03/20/15 [facility] [address] [place] [address] [place]re[place] [address]- Discharge Diagnosis: Kidney stones Discharge Disposition: 01-Home [...] Date: Follow Up With: Where: When: Jabari Atkins[address]; [place] [address] Business (1) In 6 months 09/20/2015 Comments: Follow Up With: Where: When: Mauricio Narayan [address] [place], [place] [phone] Business (1) Within 3 to 5 days Comments: Follow Up With: Where: When: Jabari Atkins[address]; [place] [address] Business (1) In 6 months [...] patient. Ordered: Office Visit Level 3 Est 95015 Office Visit Level 4 Est 21361
--- OUTSIDE RECORDS SUMMARY | 2017-07-11 19:28 | External Medical Summary | Referral Summary ---
:1945 Author Organization [facility] Address [address] [place] [address] [place] Schreiber [address] Care Team Providers Name Role Phone Arredondo Mauricio Cadet Primary Care Physician Encounter VC Date(s): 03/20/15 - 03/20/15 [facility] [address] [place] [address] [place] [address] Discharge Diagnosis: Kidney stones Discharge Disposition: 01-Home [...] Date: Follow Up With: Where: When: Jabari Atkins[address]; [place] [address] Business (1) In 6 months 09/20/2015 Comments: Follow Up With: Where: When: Mauricio Narayan [address] [place], [place] [phone] Business (1) Within 3 to 5 days Comments: Follow Up With: Where: When: Jabari Atkins[address]; [place] [address] Business (1) In 6 months [...] patient. Ordered: Office Visit Level 3 Est 22994 Office Visit Level 4 Est 57452
--- OUTSIDE RECORDS SUMMARY | 2017-07-11 19:28 | External Medical Summary | Referral Summary ---
:1945 Author Organization [facility] Address [address] [place] [address] [place] Schreiber [address] Care Team Providers Name Role Phone Mauricio Arredondo Primary Care Physician Encounter VC Date(s): 10/23/15 - 10/23/15 [facility] [address] [place] [address] [place] [phone] [place] Discharge Diagnosis: Hyperuricemia Discharge Diagnosis: Obesity Discharge Diagnosis: Kidney stones Discharge Diagnosis: Essential hypertension Discharge Disposition: 01-Home or Self Care Attending Physician: Jabari Rodgers JR, MD Admitting Physician: Jabari Rodgers JR, MD Referring Physician: Mauricio Arredondo MD Vital Signs Most recent to oldest [Reference Range]: 1 Peripheral Pulse Rate [60-100 bpm] 110 bpm *HI* (10/23/15 8:25 AM) Blood Pressure [90-140/60-90 mmHg] 132/78 mmHg (10/23/15 8:25 AM) Problem List Condition Effective Dates Status [...] Where: When: Mauricio Narayan [address] [place], [place] [phone] Business (1) Within 3 to 5 days Comments: Follow Up With: Where: When: Jabari Rodgers [address] [place] [address] Drive; [place] [address] Business (1) In 1 week 10/30/2015 Comments: Extracted from: Title: Office Visit Note Author: Jabari Rodgers JR, MD Date: 10/23/15 Assessment/Plan 1.Kidney stones, Kidney stone there still remnants of stone right kidney. The right double-J stent is in its normal location. We will manage conservatively recheck in my office again in a week and if there still stone presen t on the right kidney will proceed with doing another lithotripsy and then remove the double-J stent its in time. If there are no more stones present will only remove the double-J stent and lithotripsy scrotum to be done. Recheck in my office in one week. Repeat KUB x-ray in the distal stones present will proceed with doing the above procedures Ordered: Kidney Stone Analysis-[place] 2.Essential hypertension continue metoprolol 3.Obesity patient is trying to loose weight in fact he had lost 20 pounds of weight over his since 6 months ago. 4.Hyperuricemia continue ibuprofen alternatively milligram once a day Ordered: Postoperative Est 34032
--- OUTSIDE RECORDS SUMMARY | 2017-07-11 19:28 | External Medical Summary | Referral Summary ---
:1945 Author Organization [facility] Address [address] [place] [address] [place] Schreiber [address] Care Team Providers Name Role Phone Arnulfo Mauricio Cadet Primary Care Physician Encounter VC Date(s): 03/20/15 - 03/20/15 [facility] [address] [place] [address] [place] [phone] [place] Discharge Diagnosis: Kidney [...] Up With: Where: When: Jabari Rodgers [address]; [place] [address] Business (1) In 6 months 09/20/2015 Comments: Follow Up With: Where: When: Mauricio Arredondo [address] [place], [place] [phone] Business (1) Within 3 to 5 days Comments: Follow Up With: Where: When: Jabari Rodgers [address]; [place] [address] Business (1) In 6 months [...] patient. Ordered: Office Visit Level 3 Est 84124 Office Visit Level 4 Est 35169
--- OUTSIDE RECORDS SUMMARY | 2017-07-11 19:28 | External Medical Summary | Referral Summary ---
:1945 Author [facility] Address [address] [place] [address] Care Team Providers Name Role Phone Mauricio Arredondo Primary Care Physician Encounter VC Date(s): 07/12/15 - 07/12/15 [facility] [address] [place] [address] [place] Discharge Disposition: 01-Home or Self Care Attending Physician: Yelena Kelly MD Admitting Physician: Yelena Kelly MD Vital Signs No data available for [...]
[2017-07-11] MEDS ORDERED: IOHEXOL 350mg/ml 75ml INJECTION ONE (20:48)
[2017-07-11] MEDS ORDERED: SALINE FLUSH 10ml SYRINGE ONE (20:48)
[2017-07-11] MEDS ORDERED: NS 0 ML ONE (20:48)
[2017-07-11] MEDS ORDERED: ENOXAPARIN 150 MG/ML INJECTION SQ ONE (21:31)
[2017-07-11 21:59] VITALS: BMI 42.3
[2017-07-11] MEDS: GABAPENTIN 300 MG CAPSULE PO SCH (23:24)
[2017-07-11] MEDS: TRAZODONE 50 MG TABLET PO SCH (23:24)
[2017-07-12] MEDS ORDERED: FUROSEMIDE 40 MG/4 ML INJECTION IVP SCH (09:00)
[2017-07-12] MEDS: SALINE FLUSH 10ml SYRINGE IVF PRN (09:00)
--- NOTE | 2017-07-12 09:05 | XRay Report ---
INDICATION: fall, SOA PROCEDURE: CHEST 2-VIEWS UPRIGHT (PA & LAT) Encounter: Initial COMPARISON: June 12, 2017 FINDINGS: New pulmonary vascular congestion. Continued hypoinflation. No pneumothorax. No definite pleural effusion. Heart size and mediastinal contours are grossly stable. Impression: New moderate pulmonary edema, possibly due to CHF. .
[2017-07-12] MEDS: ENOXAPARIN 120 MG/0.8 ML INJECTION SQ SCH ×2 (10:47→20:57)
[2017-07-12] MEDS: FUROSEMIDE 40 MG/4 ML INJECTION IVP SCH (20:00)
[2017-07-12] MEDS: GABAPENTIN 300 MG CAPSULE PO SCH (20:57)
[2017-07-12] MEDS: TRAZODONE 50 MG TABLET PO SCH (20:59)
[2017-07-13] MEDS ORDERED: PNEUMOCOCCAL VAC ADMIN CHARGE INJ ONE (06:45)
--- NOTE | 2017-07-13 07:53 | History and Physical ---
Note: This is for yesterday, 07/11/2017. HISTORY OF PRESENT ILLNESS The patient is a 71-year-old who presented to [facility] via ambulance after he sustained a fall at home. He was on the floor for about 20 minutes and then after that he started having some shortness of breath and sweating. Therefore patient did call EMS who brought the patient to [facility] Emergency Room. Upon arrival, EMS personnel reported that the patient's O2 sat was 88% on room air and then it went up to 90s with 2 liters of oxygen by nasal cannula. Over the last 1-2 weeks he has used a cane because he has been unsteady. The patient lives by himself. He has no children. Never . In the emergency room the patient was found to have sinus tachycardia with occasional PVCs. His chest x-ray did show there was apparent pulmonary edema probably due to congestive heart failure. He did have a have a heart cath by Dr. Hemphill about two or three weeks ago. I don't a copy of that report at the time of dictation. The patient was told that there was "scar" in his heart tissue. He is feeling better since he got into the emergency room and was put on oxygen. He is less short of breath and has no sweating. PAST MEDICAL HISTORY 1. Congestive heart failure. 2. Hypertension. 3. BPH. 4. History of kidney stones. 5. Glaucoma. 6. Cataracts. 7. Arrhythmia. 8. Osteoarthritis. 9. History of hypertension and dyslipidemia, lumbar disc disease, exogenous obesity is also recorded. PAST SURGICAL HISTORY Left knee replacement. FAMILY HISTORY Not relevant to this admission. His father at age 72 from myocardial infarction. Mom at age 59 from myocardial infarction. SOCIAL HISTORY The patient has never smoker. Never . No children. He has a couple of sisters ALLERGIES Listed as ampicillin which causes a rash. CURRENT MEDICATION 1. Zolpidem 10 mg one tablet a day. 2. Lasix 40 mg one tablet p.o. b.i.d. 3. Potassium chloride 20 mEq one tablet p.o. b.i.d. 4. Metoprolol 50 mg one tablet b.i.d. 5. Gabapentin 900 mg p.o. p.m. 6. Fenofibrate 145 mg one tablet daily. 7. Gabapentin 600 mg one tablet in the morning. 8. Citalopram 20 mg one tablet daily. 9. Hydrochlorothiazide 25 mg one tablet daily. 10. [place]-3 Fish Oil one capsule daily. 11. Aspirin 81 mg one tablet daily. REVIEW OF SYSTEMS The patient complains of dizziness and difficulty walking and unsteadiness lately, shortness of breath and sweating and falling. He has fallen twice this week. PHYSICAL EXAMINATION VITAL SIGNS IN THE EMERGENCY DEPARTMENT: Pulse 114-120, temperature 98.3, blood pressure 141/71. 02 sat 92% on room air initially. GENERAL: Patient looked tired although he looks comfortable otherwise. HEENT: Unremarkable. NECK: Supple. No JVD. No bruit. LUNGS: Crackles at the bases bilaterally. CARDIOVASCULAR: Regular rate with tachycardia also noted, rate of 100-110 most of the time. Regular rhythm. ABDOMEN: Soft. EXTREMITIES: Show trace edema. There are some bruises on his legs from the fall. IMAGING Chest x-ray did show moderate pulmonary edema, possibly due to congestive heart failure. ADMITTING DIAGNOSES 1. Pulmonary edema possibly due to cardiac etiology. 2. Dyspnea due to #1 above. One has to rule out PE. 3. Hypertension. 4. Sinus tachycardia with dyspnea. 5. Frequent falls with injury. 6. Unsteady gait and unsteadiness. 7. Hypokalemia. PLAN Admit patient initially on observation for management of his symptoms. Order for CT angiogram chest to rule out PE. Echocardiogram was ordered. Resume some of patient's home medications. Start patient on Lasix IV b.i.d. Also, start patient on Lovenox 120 mg one tablet subcu b.i.d. Resume metoprolol 50 mg b.i.d. Resume Gabapentin 600 mg one tablet in the morning, 900 mg one tablet p.m. Resume home trazodone--hold that medication for tonight and see how he does. Patient received potassium in the emergency room. I gave him some more potassium last evening as well. Dr. Hemphill has been consulted already by the emergency room physician. FABI
[2017-07-13] MEDS: FUROSEMIDE 40 MG/4 ML INJECTION IVP SCH (08:11)
[2017-07-13] MEDS: ENOXAPARIN 120 MG/0.8 ML INJECTION SQ SCH ×2 (08:11→20:02)
[2017-07-13] MEDS: SALINE FLUSH 10ml SYRINGE IVF PRN (08:13)
--- NOTE | 2017-07-13 08:17 | Progress Note ---
DATE 07/12/2017 SUBJECTIVE Patient was getting a sponge bath at the bedside when I saw him. He seems a little more comfortable. He feels like he is better. He just feels unsteady. OBJECTIVE GENERAL: Otherwise he looks fine. HEENT: Unremarkable. NECK: Supple. LUNGS: A few crackles at the bases, better than yesterday. CARDIOVASCULAR: Regular rate and rhythm. ABDOMEN: Soft. EXTREMITIES: Just some mild edema. NEURO EXAM: Grossly intact. ASSESSMENT 1. Acute pulmonary edema probably due to cardiac etiology. 2. Dyspnea with hypoxia. 3. Hypertension. 4. Hypokalemia. This is improving. Potassium today is 3.5. Patient is on 20 mEq p.o. b.i.d. PLAN 1. Continue IV Lasix. 2. Follow electrolytes closely. 3. Will defer the CT chest angiogram until tomorrow. 3. Will continue Lovenox. 4. He will be started back on his Ambien and metoprolol as well. FABI
[2017-07-13] MEDS ORDERED: IOHEXOL 350mg/ml 75ml INJECTION ONE (08:50)
[2017-07-13] MEDS ORDERED: NS 100 ML ONE (08:50)
[2017-07-13] MEDS ORDERED: SALINE FLUSH 10ml SYRINGE ONE ×3 (08:50→14:34)
[2017-07-13] MEDS ORDERED: FALL RISK - PHARMACY CONSULT MC PRN (08:52)
[2017-07-13] MEDS: CITALOPRAM 20 MG TABLET PO SCH ×2 (10:39)
[2017-07-13] MEDS ORDERED: PNEUMOCOCCAL 23 VACCINE 0.5ml INJECTION IM ONE (11:00)
--- NOTE | 2017-07-13 13:26 | XRay Report ---
LOCATION OF DICTATION: [facility] EXAM: XR chest 2V HISTORY: chf COMPARISON: No prior studies available for comparison. FINDINGS: The heart size is normal. The mediastinal configuration is unremarkable. Limited depth of inspiration with bibasilar atelectasis or scarring suggested. There is improved aeration when compared with two days earlier with resolving interstitial opacities. There are no consolidating opacities or pleural effusions. There is no evidence for a pneumothorax. The osseous structures are within normal limits. IMPRESSION: Improved aeration from two days earlier with resolving interstitial opacities/pulmonary edema. There is residual basilar atelectasis with limited depth of inspiration. .
--- NOTE | 2017-07-13 13:53 | Progress Note ---
DATE 07/13/2017 SUBJECTIVE Patient thought he had a good night's sleep. He is still having difficulty with breathing. Still requires about 3 liters of oxygen by nasal cannula. PHYSICAL EXAMINATION VITAL SIGNS: Blood pressure is 146/96 with a pulse of 97-100 and respiration of 20-26, and O2 sat is 98% on 3.5 liters of oxygen by nasal cannula. GENERAL: He is dyspneic. HEENT: Unremarkable. NECK: Supple. LUNGS: Diffuse rhonchi and wheezing throughout as well as rales, particularly at the bases. ABDOMEN: Soft, nontender. EXTREMITIES: Edema is improving. LAB This morning potassium is 3.4, sodium 150--ranging between 147-150 this morning. Calcium is down to 10.3. Creatinine at 0.9. The last magnesium check was yesterday at 2.1. IMAGING Official chest x-ray performed yesterday was read by the radiologist as new moderate pulmonary edema. ASSESSMENT 1. Acute pulmonary edema. 2. Dyspnea with hypoxia. 3. Hypertension. 4. Hypokalemia - improved with replacement. 5. History of CHF due to diastolic dysfunction. 6. Depression which is chronic. 7. Gait instability, probably multifactorial. 8. Insomnia. PLAN Will go forward with the CT that was supposed to be done a couple of nights ago. Patient just was unable to lie down because of dyspnea. Will do another chest x-ray this morning. Followup potassium at noon. Then we will have physical therapy consulted for evaluation of endurance and strengthening. Continue with Lovenox till we know the CT chest report today. Dr. Hemphill, [facility], has been consulted. He hasn't see patient yet at this time. FABI
--- NOTE | 2017-07-13 16:32 | CT Scan Report ---
EXAM: CT angio pulm emboli LOCATION OF DICTATION: [facility] HISTORY: abrupt dyspnea/hypoxia/elevated D dimer COMPARISON: No prior studies available for comparison. TECHNIQUE: Multiple contiguous axial images were obtained of the chest with contrast utilizing 85 mL of Omnipaque [address] angiogram protocol. Coronal, sagittal, and MIP reformatted images were utilized. Automated Exposure Control and Iterative Reconstruction dose reducing techniques were utilized. FINDINGS: The heart is mildly enlarged. There is no pericardial effusion. The visualized portions of the thoracic aorta and major branch vessels of the aortic arch fills with contrast homogenously and are unremarkable. There are no central pulmonary artery filling defects to suggest pulmonary artery embolism. The trachea and mainstem bronchi are patent.There is no consolidation, pleural effusion, or pneumothorax.There is mild dependent atelectasis. There is elevation the right hemidiaphragm. There are no masses or nodules seen in the lung parenchyma. There is no axillary, hilar, or mediastinal lymphadenopathy. There is moderate spondylosis of the thoracic spine. No suspicious or destructive osseous lesions. There is a 1 cm gallstone layering dependently in the gallbladder near the gallbladder neck. A few nonobstructing calculi are demonstrated within the right kidney. IMPRESSION: 1. No evidence for pulmonary embolism. 2. Elevation the right hemidiaphragm with bibasilar atelectasis. 3. The heart is mildly enlarged. 4. Cholelithiasis and nephrolithiasis. .
[2017-07-13] MEDS: D5-1/2NS with KCL 20mEq 1,000 ML IV SCH (19:52)
[2017-07-13] MEDS: TRAZODONE 50 MG TABLET PO SCH (20:02)
[2017-07-13] MEDS: GABAPENTIN 300 MG CAPSULE PO SCH (20:02)
[2017-07-13] MEDS ORDERED: ZOLPIDEM 10 MG TABLET PO SCH (21:00)
[2017-07-13] MEDS ORDERED: TAMSULOSIN 0.4 MG CAPSULE PO SCH (21:00)
[2017-07-14] MEDS: D5-1/2NS with KCL 20mEq 1,000 ML IV SCH ×2 (03:48→14:22)
[2017-07-14] MEDS: CITALOPRAM 20 MG TABLET PO SCH (08:41)
[2017-07-14] MEDS ORDERED: NAPROXEN 220 MG TABLET PO PRN (08:47)
[2017-07-14 15:26] VITALS: O2SAT 96
[2017-07-14 16:06] VITALS: BP 124/64; PULSE 73; RESP 16; TEMP 97.8
--- NOTE | 2017-07-14 18:16 | Discharge Instructions ---
Discharge Plan - Med Rec/Dispo Referrals/Follow Up: Frank Bajwa MD [Family Provider] - 07/21/17 11:00 am (follow up 1 wk, 11:00) Sera Instructions: Heart Failure (GEN), Tachycardia (GEN) Prescriptions: Continue hydroCHLOROthiazide [Hydrochlorothiazide] 25 tab PO DAILY #0 Trazodone HCl 50 mg PO HS #0 Metoprolol Succinate 25 mg PO WS Gabapentin 900 mg PO PM Gabapentin 600 mg PO AM Potassium Chloride [K-Tab ER] 20 meq PO BID Fenofibrate Nanocrystallized [Fenofibrate] 145 mg PO DAILY Aspirin [Aspir 81] 81 mg PO DAILY #0 Springer-3 Fatty Acids/Fish Oil [Springer 3 1,000 mg Softgel] 1 cap PO DAILY #0 Citalopram Hydrobromide [Citalopram HBr] 20 mg PO DAILY #0 Metoprolol Succinate 50 mg PO AM zolpidem 10 mg tablet 10 mg PO HS #90 tab Lasix (Furosemide) 40 mg tablet 40 mg PO BID #60 tab Discharge Instructions/Outpatient Orders: Final Provider Discharge Instructions Location: Determined By Patient - Disposition [address] [place] [address]
--- NOTE | 2017-07-15 15:16 | Discharge Summary ---
FINAL DIAGNOSES 1. Acute pulmonary edema. 2. Dyspnea with hypoxia. 3. Hypokalemia which was treated and replaced and normalized. 4. History of CHF due to diastolic dysfunction. 5. Gait instability. 6. Insomnia. 7. Depression, chronic. CODE STATUS: Full Code. REASON FOR ADMISSION The patient is a 71-year-old who presented to [facility] ER on 2016 via ambulance after he sustained a fall at home. He was on the floor for about 20 minutes and then after that he started having some shortness of breath and sweating. Upon arrival EMS found patient's O2 sat was 88% on room air. It went up to 90 with 2 liters of oxygen by nasal cannula. Over the prior 1-2 weeks the patient had been using a cane because his gait had become unsteady. In the emergency room a chest x-ray did show pulmonary edema probably due to congestive heart failure. Dr. Hemphill had done a heart cath on this patient 2- 3 weeks ago. I didn't have a copy of that dictation at the time I saw this patient. The patient told me that all they found was "scar in his heart tissue. " He had been given dose of Lasix in the emergency room prior to my arrival and was beginning to feel better at that time. PHYSICAL EXAMINATION His pulse in ER was 114-120, temperature 98.3, blood pressure 141/71, 02 sat 92 % on room air at that time. He looked tired although he looked comfortable otherwise. No significant dyspnea. Lung exam showed crackles at the bases bilaterally. Heart was regular rate with tachycardia, rate of 100-110 most of the time. Extremities had trace edema. He had some bruises on his legs from the fall. IMAGING Chest x-ray showed moderate pulmonary edema possibly due to congestive heart failure. LABORATORY CBC was unremarkable. Sodium 147. D-Dimer 640. Potassium 3.3. Creatinine 1.0. Glucose 115. Calcium 10.8. BNP 277. HOSPITAL COURSE The patient was admitted to the general medical floor under the care of Dr. Frank Bajwa. The patient received IV Lasix as well as potassium supplement. There was concern for possible PE due to the abrupt nature of his dyspnea and also elevated D-dimer. CT angiogram of the chest was negative for PE. Repeat chest x-ray showed some improvement in pulmonary edema. The patient also developed hypernatremia which was treated with stopping the patient 's Lasix and giving a gentle dose of IV hydration which actually improved to 147 overnight prior to dismissing patient to home today. His potassium is 4.1 and sodium is 147. Creatinine is 0.9. He was seen by physical therapy. He was ambulating with a walker without any difficulty. He looks good. He is stable medically to be dismissed to home at this time. Home Health has been arranged for him for physical therapy and occupational therapy on an outpatient basis. DISMISSAL MEDICATION 1. Hydrochlorothiazide 25 mg one tablet daily. 2. Trazodone 50 mg one tablet at bedtime. 3. Metoprolol - was increased to 50 mg p.o. a.m. 4. Gabapentin 900 mg p.o. p.m. and 600 mg Gabapentin p.o. a.m. 5. Potassium 20 mEq p.o. b.i.d. 6. Fenofibrate 145 mg one tablet daily. 7. Aspirin 81 mg one tablet daily. 8. [place]-3 Fish Oil 1,000 mg one capsule daily. 9. Citalopram 20 mg one tablet daily. 10. Zolpidem 10 mg one tablet at bedtime. 11. Lasix 40 mg p.o. b.i.d. FOLLOWUP Patient will have followup at Dr. Frank Bajwa's office on the July 21 at 11 a.m. The appointment has been made for him already. He can come see me sooner if he needs to. [facility]ITAL[facility]apoleon
== END 2017-07-14 19:00 | disposition home or self-care (01) | DRG 292 ==
LOC: MED 18:06 → ED 18:06 → MED 21:50
PROVIDERS: ADMIT Family Medicine; ATTEND Family Medicine

== ENCOUNTER 2017-08-19 20:08 | Inpatient (IN) ==
--- NOTE | 2017-08-19 20:21 | Emergency Department Report ---
Psych HPI - General Stated Complaint: anxiety Time Seen by Provider: 08/19/17 20:10 Source: patient, EMS Mode of arrival: EMS Limitations: altered mental status - History of Present Illness HPI Narrative: Patient's family called police tiana for a welfare check since they were unable to get the patient by phone. Apparently the patient has been dealing with depression for some time, and has talked with his family about "ending it all." Tonight the patient was found by PD to be significantly somnolent and lethargic, he admits that he took 2 tablets each of zolpidem and another medication in an effort to "sleep so that it would all go away." Patient states he does not want to commit suicide, he just wants to end it all. Patient has no somatic complaint at this time - Related Data Home Medications Medication Instructions Recorded Confirmed Aspirin [Aspir 81] 81 mg PO DAILY #0 08/28/09 08/19/17 [place]-3 Fatty Acids/Fish Oil 1 cap PO DAILY #0 08/28/09 08/19/17 [[place] 3 1,000 mg Softgel] Trazodone HCl 50 mg PO HS #0 08/29/09 08/19/17 hydroCHLOROthiazide 25 tab PO DAILY #0 08/29/09 08/19/17 [Hydrochlorothiazide] Citalopram Hydrobromide 20 mg PO DAILY #0 03/31/12 08/19/17 [Citalopram HBr] Fenofibrate Nanocrystallized 145 mg PO DAILY 07/11/17 08/19/17 [Fenofibrate] Gabapentin 600 mg PO AM 07/11/17 08/19/17 Gabapentin 900 mg PO PM 07/11/17 08/19/17 Furosemide [Lasix] 40 mg PO BID 08/19/17 08/19/17 Metoprolol Succinate (XL) [Toprol 50 mg PO HS 08/19/17 08/19/17 Xl] Potassium Chloride [K-Dur] 20 meq PO BID 08/19/17 08/19/17 Tamsulosin [Flomax] 0.4 mg PO HS 08/19/17 08/19/17 Zolpidem [Ambien] 10 mg PO HS 08/19/17 08/19/17 Allergies Allergy/AdvReac Type Severity Reaction Status Date / Time ampicillin Allergy Intermediate RASH Verified 08/06/17 07:58 Review of Systems All systems: reviewed and negative except as stated PFSH Patient Stated Medical History Glaucoma Yes Cardiac Arrhythmia Yes Congestive Heart Failure Yes Hypertension Yes Other Respiratory Yes: Problem with diaphram Other GI Yes: Obesity Hx Benign Prostatic Yes Hyperplasia Hx Kidney Stones Yes Osteoarthritis Yes Other Behavioral Health Yes: difficulty sleeping Clinic Medical History (Last Reviewed 04/16/17 @ 14:36 by PIPE Saavedra) Glaucoma (Chronic Medical) HTN (hypertension) (Chronic Medical) High triglycerides (Chronic Medical) Kidney stones (Chronic Medical) Lumbar disc disease (Chronic Medical) Obesity (Chronic Medical) Osteoarthritis of left hip (Chronic Medical) Surgical History: L hip replacement Family History: Family History (Last Reviewed 04/16/17 @ 14:36 by PIPE Saavedra) Father , 72 Myocardial infarct Mother , 59 Myocardial infarct - Social History Smoking status: Never smoker Physical Exam - Limitations Limitations: altered mental status (hypersomnolent secondary to 4 sleeping pills ) - General General appearance: lethargic - Normal Exams: Head:: Normocephalic without trauma Eyes:: Pupils are PERRLA w/ EOMI, No scleral icterus, irritation, or foreign bodies noted ENMT:: No facial trauma, nasal exudates, pharyngeal erythema, or exudates are noted Neck:: Full range of motion, without adenopathy, JVD, bruits or thyromegaly Chest/Respirations:: Clear all suarez, with good airflow, and symmetry bilaterally Cardiovascular:: Regular rate and rhythm, without murmur or gallop, Pulses 2+ all extremities, capillary refill, <2 seconds all extremities Abdomen:: Bowel sounds positive, soft, non-tender, non-distended, no hepatosplenomegaly, masses or bruits noted Lymphatic:: No lymphadenopathy, or lymphedema noted Musculoskeletal:: No tenderness, or deformity noted, good range of motion, all extremities Integumentary:: No rashes, hives, or bruising noted, hair and nails, without abnormality Neurological:: Patient is alert, and oriented, cranial nerves, motor/sensory/ cerebellar, exams w/o gross deficits, to observation - Psychiatric Psychiatric exam: Present: depressed, flat affect, suicidal ideation Course Vital Signs Temperature 98.2 F 08/19/17 20:08 Pulse Rate 101 H 08/19/17 20:08 Respiratory Rate 12 08/19/17 20:08 Blood Pressure 154/82 H 08/19/17 20:08 Pulse Oximetry 92 08/19/17 20:08 Temperature 98.2 F 08/19/17 20:08 Pulse Rate 101 H 08/19/17 20:08 Respiratory Rate 12 08/19/17 20:08 Blood Pressure 154/82 H 08/19/17 20:08 Pulse Oximetry 92 08/19/17 20:08 Psych - MDM Narrative Medical decision making narrative: Patient appears globally depressed, states that he wants to end it all, but refuses to state that he wants to kill himself. He has apparently spoken with the family and told them that he wants to end it all, just wants to . All psych screening clearance labs were ordered [facility] has been consulted for evaluation of possible placement Medical screen is complete, labs are essentially normal. [facility] has accepted the patient, Dr. Bardales will be caring for the patient on the [facility] unit. - Lab Data Result diagrams: 08/19/17 20:59 08/19/17 20:59 Lab Results 08/19/17 08/19/17 Range/Units 20:59 20:59 WBC 7.7 (4.5-11.0) T/MM3 RBC 4.63 (4.50-5.90) M/MM3 Hgb 14.8 (13.5-17.5) GM/DL Hct 43.1 (41-53) % MCV 93.1 (80-100) UM3 MCH 32.0 (26-34) UUG MCHC 34.3 (31-37) GM/DL RDW Std Deviation 43.7 (36.9-50.2) FL Plt Count 163 (130-400) T/MM3 MPV 9.5 (9.4-12.4) UM3 Immature Gran % (Auto) 0.1 (0.0-0.5) % Neut % (Auto) 54.5 (33-66) % Lymph % (Auto) 34.2 (23-45) % Parmer % (Auto) 9.5 H (0-9.0) % Eos % (Auto) 1.2 (0-4) % Baso % (Auto) 0.5 (0-2) % Neut # (Auto) 4.2 (1.8-7.7) T/MM3 Lymph # (Auto) 2.6 (1-4.8) T/MM3 Parmer # (Auto) 0.7 (0-0.8) T/MM3 Eos # (Auto) 0.1 (0-0.5) T/MM3 Baso # (Auto) 0.0 (0-0.2) T/MM3 Abs Immat Gran (auto) 0.01 (0.00-0.03) T/MM3 Turbidity < 20 (0-20) Sodium 147 H (134-144) MEQ/L Potassium 3.4 L (3.6-5) MEQ/L Chloride 103 (98-107) MEQ/L Carbon Dioxide 32 H (22-30) MEQ/L Anion Gap 12 (5-15) MEQ/L BUN 20.0 (9-20) MG/DL Creatinine 0.9 (0.8-1.5) MG/DL GFR Calculation 83 BUN/Creatinine Ratio 22 (6-26) RATIO Glucose 90 (75-110) MG/DL Calculated Osmolality 285 H (261-280) MOSM/KG Calcium 10.1 (8.4-10.2) MG/DL Total Bilirubin 1.40 H (0.20-1.30) MG/DL Icterus Index < 2 (0-7) AST 25 (17-59) U/L ALT 41 (21-72) U/L Alkaline Phosphatase 42 (38-126) U/L Total Protein 7.4 (6.3-8.2) G/DL Albumin 4.1 (3.5-5.0) G/DL Globulin 3.3 (2.4-3.6) G/DL Albumin/Globulin Ratio 1.2 (1.1-2.2) RATIO Specimen Hemolysis < 15 (0-25) Salicylates < 1.0 L (2-20) MG/DL Acetaminophen < 10 L (10-30) UG/ML Alcohol, Quantitative <10 (<10) MG/DL Disposition Disposition: 02 To [facility] Acute Care Condition: Stable Prescriptions: No Action hydroCHLOROthiazide [Hydrochlorothiazide] 25 tab PO DAILY #0 Trazodone HCl 50 mg PO HS #0 Gabapentin 900 mg PO PM Gabapentin 600 mg PO AM Fenofibrate Nanocrystallized [Fenofibrate] 145 mg PO DAILY Potassium Chloride [K-Dur] 20 meq PO BID Furosemide [Lasix] 40 mg PO BID Zolpidem [Ambien] 10 mg PO HS Aspirin [Aspir 81] 81 mg PO DAILY #0 [place]-3 Fatty Acids/Fish Oil [[place] 3 1,000 mg Softgel] 1 cap PO DAILY #0 Citalopram Hydrobromide [Citalopram HBr] 20 mg PO DAILY #0 Tamsulosin [Flomax] 0.4 mg PO HS Metoprolol Succinate (XL) [Toprol Xl] 50 mg PO HS - Seen By: physician
[2017-08-19] MEDS ORDERED: HALOPERIDOL 0.5 MG TABLET PO PRN (21:36)
[2017-08-19] MEDS ORDERED: HALOPERIDOL 5 MG/ML INJECTION IM PRN (21:36)
[2017-08-20 00:34] VITALS: BMI 38.7
[2017-08-20] MEDS: LORazepam 0.5 MG TABLET PO PRN ×2 (03:12→21:32)
[2017-08-20] MEDS: CITALOPRAM 20 MG TABLET PO SCH (10:27)
[2017-08-20] MEDS: FENOFIBRATE 145 MG TABLET PO SCH (10:27)
[2017-08-20] MEDS: ASPIRIN *EC* 81 MG TABLET PO SCH (10:27)
[2017-08-20] MEDS: GABAPENTIN 300 MG CAPSULE PO SCH ×2 (10:27→21:31)
[2017-08-20] MEDS: FUROSEMIDE 40 MG TABLET PO SCH ×2 (10:27→14:48)
--- NOTE | 2017-08-20 19:11 | 24 Hour Neuropsychiatic Eval ---
Date of Admission: 08/19/17 22:02 Chief complaint: "Im depressed" History of Present Illness: HPI: 71 y/o CM with a hx of depression and anxiety admitted through the ED after family called for a welfare check. Pt reportedly took 2 extra Ambien wishing he would . Pt denies S/I but does report morbid ideation. STRESSORS: Pt reports some health issues. He states "life has just not been going well" but is unable to elaborate. PSYCH ROS: Pt reports feeling depressed with low energy, low interest and motivation and anhedonia. He reports feeling anxious much of the time. Denies gudelia or psychosis. PAST PSYCH: Pt is currently on Celexa, Trazodone and Ambien from his PCP. Never tried to harm himself and has never seen a psychiatrist. SUBSTANCE ABUSE: Was a drinker in the past but has not drank for 15 years [facility] Patient Stated Medical History Glaucoma Yes Cardiac Arrhythmia Yes Congestive Heart Failure Yes Hypertension Yes Other Respiratory Yes: Problem with diaphram Other GI Yes: Obesity Hx Benign Prostatic Yes Hyperplasia Hx Kidney Stones Yes Osteoarthritis Yes Clinic Medical History (Last Reviewed 04/16/17 @ 14:36 by PIPE Saavedra) Glaucoma (Chronic Medical) HTN (hypertension) (Chronic Medical) High triglycerides (Chronic Medical) Kidney stones (Chronic Medical) Lumbar disc disease (Chronic Medical) Obesity (Chronic Medical) Osteoarthritis of left hip (Chronic Medical) Surgical History: L hip replacement Family History: Family History (Last Reviewed 04/16/17 @ 14:36 by PIPE Saavedra) Father , 72 Myocardial infarct Mother , 59 Myocardial infarct - Social History Smoking status: Never smoker Review of Systems - Psychiatric Psychiatric: Present: anhedonia, anxiety, depression, hopelessness Mental Status Exam Vitals: Last Vital Signs Temp 98.2 F 08/20/17 16:00 Pulse 110 H 08/20/17 16:00 Resp 20 08/20/17 16:00 BP 138/71 08/20/17 16:00 Pulse Ox 96 08/20/17 16:00 Height: 1.73 m Weight: 115.5 kg - Mental Status Exam Muscle Strength/Tone: Normal Dressing: Casual Grooming: Good Attitude: Cooperative Motor Activity: Retardation Eye Contact: Fair Speech: Slowed Volume: Soft Rhythm: Appropriate Rhythm Orientation: Oriented X4 Mood: Depressed Affect: Sad Rate of Thoughts: Appropriate Rate Thought Organization: Organized Associations: Intact Abstract Reasoning: Intact, able to abstract Thought Content: Helplessness, Worthlessness Language: Naming Intact Fund of Knowledge: Appropriate Memory: Grossly Intact Suicidal Ideation: Intermittent Homicidal Ideation: None Insight: Poor Judgement: Poor Impulse Control: Poor - Laboratory Result Diagrams: 08/19/17 20:59 08/19/17 20:59 Assessment and Plan (1) MDD (major depressive disorder), recurrent severe, without psychosis Current visit: Yes Status: Acute Continue to evaluate and stabilize. Hospitalist consult. Will restart home psych meds at this time
[2017-08-20] MEDS: TAMSULOSIN 0.4 MG CAPSULE PO SCH (21:32)
[2017-08-20] MEDS: ZOLPIDEM 10 MG TABLET PO SCH (21:32)
[2017-08-20] MEDS: TRAZODONE 50 MG TABLET PO SCH (21:32)
[2017-08-21] MEDS: ASPIRIN *EC* 81 MG TABLET PO SCH (08:20)
[2017-08-21] MEDS: FUROSEMIDE 40 MG TABLET PO SCH (08:20)
[2017-08-21] MEDS: FENOFIBRATE 145 MG TABLET PO SCH (08:20)
[2017-08-21] MEDS: CITALOPRAM 20 MG TABLET PO SCH (08:21)
[2017-08-21] MEDS: GABAPENTIN 300 MG CAPSULE PO SCH ×2 (08:21→21:02)
--- NOTE | 2017-08-21 13:51 | History & Physical Report ---
<Anitra Hood - Last Filed: 08/21/17 14:22> History of Present Illness Date: 08/21/17 Chief complaint: depressed HPI: Paolo Bush, aka "RAINE", is a 71 y/o male who has had increasing depressive symptoms. He was evaluated in the ED on 08/19/17 after found somnolent by PD, following taking extra zolpidem as well as another medication. He was medically cleared and accepted to [facility]. He otherwise has been in his typical state of health. He reports a fall about 4 weeks ago with minor injuries including an abrasion to his left lateral ankle and dorsum of right foot, which he reports have healed up. He has an unsteady gait and uses a walker. He c/o paresthesias to both feet and hands, but it's the worst in his left foot. He's been on gabapentin for quite a while for his neuropathy. He doesn't know what his last hgb A1c was. He also reports that recently he hasn't had a good appetite, and hasn't been eating/drinking as much as usual. No abdominal pain/n/v/d, though does have intermittent constipation (last BM was 08/20). He denies any urinary symptoms - no dysuria, frequency, urgency. He denies f/c, SOA, chest pain, cough /congestion, visual changes, sore throat, dysphagia. He has felt weak, tired, and fatigued. Initial labs showed mild hypernatremia and mild hypokalemia. The hospitalist service has been consulted for medical management of his electrolyte abnormalities, HTN. Review of Systems All systems PM: 10-point ROS was reviewed, no additional remarkable complaints except - Constitutional Constitutional: Present: as per HPI - EENMT Eyes: Present: as per HPI Balance: Present: as per HPI Nose: Present: as per HPI Mouth/Throat: Present: as per HPI - Cardiovascular Cardiovascular: Absent: chest pain Vascular: Absent: pedal edema - Respiratory Respiratory: Present: as per HPI - Gastrointestinal Gastrointestinal: Present: as per HPI - Genitourinary Genitourinary: Present: as per HPI - Musculoskeletal Musculoskeletal: Present: as per HPI - Integumentary/Breasts Integumentary: Present: as per HPI - Neurological Neurological: Present: as per HPI - Psychiatric Psychiatric: Present: as per HPI - Endocrine Endocrine: Absent: palpitations - Allergic/Immunologic Allergic/Immunologic: Absent: seasonal rhinorrhea PFSH Chronic diastolic CHF Depression Glaucoma HTN High triglycerides Kidney stones Lumbar disc disease Obesity, BMI 38.7 Peripheral neuropathy Surgical History: L hip replacement. Cardiac catheterization 2017 (Dr. Hemphill) . ECHO 06/15/17. 1. Left atrial enlargement. 2. Borderline LVH with normal systolic function, EF of 55-60%. 3. Tachycardia and dysrhythmia is present. 4. Focal sclerosis and thickening of the noncoronary cusp of the aortic valve, without significant valvular dysfunction, no definite vegetation is seen, however there is clinical concern for endocarditis such as persistent unexplained fever or bacteremia. A transesophageal echocardiogram may be of further value. 5. No significant valvular dysfunction. 6. Inability to scan the patient in supine position due to patient needing to sit up during the test. This caused the study to be technically difficult, nevertheless diagnostic. 7. Mildly dilated aortic root, measured 4 cm. Family History: Father - , 72; Myocardial infarct Mother - , 59; Myocardial infarct - Social History Smoking status: Never smoker Substance use type: does not use Alcohol intake frequency: former alcohol drinker Current occupational status: retired Social history: PCP _ Dr. Bajwa Medications Home Medications Medication Instructions Recorded Confirmed Type Aspirin [Aspir 81] 81 mg PO DAILY #0 08/28/09 08/19/17 History Suches-3 Fatty Acids/Fish Oil 1 cap PO DAILY #0 08/28/09 08/19/17 History [Suches 3 1,000 mg Softgel] Trazodone HCl 50 mg PO HS #0 08/29/09 08/19/17 History hydroCHLOROthiazide 25 tab PO DAILY #0 08/29/09 08/19/17 History [Hydrochlorothiazide] Citalopram Hydrobromide 20 mg PO DAILY #0 03/31/12 08/19/17 History [Citalopram HBr] Fenofibrate Nanocrystallized 145 mg PO DAILY 07/11/17 08/19/17 History [Fenofibrate] Gabapentin 600 mg PO AM 07/11/17 08/19/17 History Gabapentin 900 mg PO PM 07/11/17 08/19/17 History Furosemide [Lasix] 40 mg PO BID 08/19/17 08/19/17 History Metoprolol Succinate (XL) [Toprol 50 mg PO HS 08/19/17 08/19/17 History Xl] Potassium Chloride [K-Dur] 20 meq PO BID 08/19/17 08/19/17 History Tamsulosin [Flomax] 0.4 mg PO HS 08/19/17 08/19/17 History Zolpidem [Ambien] 10 mg PO HS 08/19/17 08/19/17 History Allergies Allergy/AdvReac Type Severity Reaction Status Date / Time ampicillin Allergy Intermediate RASH Verified 08/06/17 07:58 Exam Vital Signs: Temperature 97.5 F 08/21/17 08:00 Pulse Rate 112 H 08/21/17 08:00 Respiratory Rate 16 08/21/17 08:00 Blood Pressure 127/67 08/21/17 08:00 Pulse Oximetry 93 08/21/17 08:00 Height/Weight/BMI: Height 1.73 m Weight 115.5 kg Body Mass Index 38.7 - Constitutional Present: no acute distress, well nourished, well developed, obese - Routine HEENT Exam Head: Present: normocephalic Eye: Present: PERRL. Absent: conjunctival icterus, scleral injection ENT: Present: mucous membranes moist, oropharynx clear - Routine Neck Exam Present: supple - Routine Respiratory Exam Present: CTA bilaterally - Routine Cardiovascular Exam Present: RRR, S1, S2 - Routine Abdominal Exam Present: soft, normoactive bowel sounds, non distended, non tender - Routine Extremities Exam Present: no edema, pulses intact - Routine Skin Exam Present: intact, dry, warm, wounds (small healing abrasions to left lateral malleolus; chronic brown discoloration to left lower leg), alopecia - Routine Neurological Exam Present: alert, oriented X3, CN II-XII intact, normal speech - Routine Psychiatric Exam Present: normal affect, normal thought process, cooperative Results - Labs CBC & Chem 7: 08/19/17 20:59 08/21/17 12:43 Assessment and Plan (1) MDD (major depressive disorder), recurrent severe, without psychosis Current visit: Yes Status: Acute Resuscitation Status: Full Code Assessment and Plan: IMPRESSION Depression Hypernatremia Hypokalemia, POA, resolved Chronic diastolic CHF Asymptomatic bacteruria Glaucoma HTN High triglycerides Kidney stones Lumbar disc disease Obesity, BMI 38.[address] Bajwa asked the hospitalist service to see Mr. Bush on 08/21/17. BMP repeated - while hypokalemia has resolved his Na has increased to 149. BUN increased slightly; creatinine is stable. Will hold Lasix and HCTZ for now. Hold K since diuretics are on hold. Encourage fluids. Recheck BMP in am. Monitor for retention - recent echo showed good systolic function but he has a hx of chronic diastolic CHF. UA suggests UTI and there is low-colony DIGITAL INTERN growth on UC; however, pt is asymptomatic. D/W Dr. Matias - will not treat asymptomatic bacteruria. Review of clinic notes report that he has oxygen at home PRN. He's been maintaining sats on room air since admission. Paresthesias - chronic per chart review. Continue gabapentin. Check hgb A1c. TSH was normal. Clinic/hospital records reviewed. Thank you for this consult. We will follow Mr. Bush along with you during his stay in [facility]. Hospital Course Summary Disclaimer: The visit summary below is not to be considered part of the above Progress Note. Hospital Course: 08/21/17 IMPRESSION Depression Hypernatremia Hypokalemia, POA, resolved Chronic diastolic CHF Asymptomatic bacteruria Glaucoma HTN High triglycerides Kidney stones Lumbar disc disease Obesity, BMI 38.[address] Bajwa asked the hospitalist service to see Mr. Bush on 08/21/17. BMP repeated - while hypokalemia has resolved his Na has increased to 149. BUN increased slightly; creatinine is stable. Will hold Lasix and HCTZ for now. Hold K since diuretics are on hold. Encourage fluids. Recheck BMP in am. Monitor for retention - recent echo showed good systolic function but he has a hx of chronic diastolic CHF. UA suggests UTI and there is low-colony DIGITAL INTERN growth on UC; however, pt is asymptomatic. D/W Dr. Matias - will not treat asymptomatic bacteruria. Review of clinic notes report that he has oxygen at home PRN. He's been maintaining sats on room air since admission. Paresthesias - chronic per chart review. Continue gabapentin. Check hgb A1c. TSH was normal. Clinic/hospital records reviewed. Thank you for this consult. We will follow Mr. Bush along with you during his stay in [facility]. <Carolina Matias - Last Filed: 08/21/17 18:26> History of Present Illness Date: 08/21/17 [facility] Patient Stated Medical History Glaucoma Yes Cardiac Arrhythmia Yes Congestive Heart Failure Yes Hypertension Yes Other Respiratory Yes: Problem with diaphram Other GI Yes: Obesity Hx Benign Prostatic Yes Hyperplasia Hx Kidney Stones Yes Osteoarthritis Yes Clinic Medical History (Last Reviewed 04/16/17 @ 14:36 by PIPE Saavedra) Glaucoma (Chronic Medical) HTN (hypertension) (Chronic Medical) High triglycerides (Chronic Medical) Kidney stones (Chronic Medical) Lumbar disc disease (Chronic Medical) Obesity (Chronic Medical) Osteoarthritis of left hip (Chronic Medical) Family History: Family History (Last Reviewed 04/16/17 @ 14:36 by PIPE Saavedra) Father , 72 Myocardial infarct Mother , 59 Myocardial infarct Exam Vital Signs: Temperature 96.8 F 08/21/17 16:00 Pulse Rate 91 08/21/17 16:00 Respiratory Rate 20 08/21/17 16:00 Blood Pressure 118/57 08/21/17 16:00 Pulse Oximetry 95 08/21/17 16:00 Height/Weight/BMI: Height 5 ft 8 in Weight 254 lb 10.142 oz Body Mass Index 38.7 Results - Labs CBC & Chem 7: 08/19/17 20:59 08/21/17 12:43 Assessment and Plan (1) MDD (major depressive disorder), recurrent severe, without psychosis Current visit: Yes Status: Acute Assessment and Plan: I have independently evaluated and examined this patient. I reviewed the chart, the patient's history, and the SERVICE MEMBER/PA's documented findings as above. We discussed and formulated the assessment and plan as above with additions as below. The patient is sitting in his chair. He is reading quietly. He does ask questions about his numbness in his hands and feet which he reports is chronic for which he takes Neurontin. In general, the patient is alert and oriented 3, cooperative with exam, and in no respiratory distress. HEENT: Head is atraumatic, normocephalic, no conjunctival petechiae, no oral thrush, mucous membranes are moist and pink. Lungs: Clear to auscultation without wheezes, crackles or rhonchi CV: Regular rate and rhythm without murmur Abdomen: Soft, nontender, bowel sounds are present, there is no guarding no rebound. Extremities: No clubbing, no cyanosis, no edema. Skin: Warm and dry no sign of rash Neuro: Patient is alert It appears that the blood draw this morning was affected by hemolysis his potassium might be falsely elevated, we will recheck tomorrow and make further adjustments as needed. Hospital Course Summary Disclaimer: The visit summary below is not to be considered part of the above Progress Note.
--- NOTE | 2017-08-21 18:14 | Neuropsych Progress Note ---
[facility] Subjective Date: 08/21/17 - Sujective/Severity of Illness Medications: Aspirin (Ecotrin) 81 mg PO DAILY [facility] Last Admin: 08/21/17 08:20 Dose: 81 mg Citalopram Hydrobromide (Celexa) 20 mg PO DAILY [facility] Last Admin: 08/21/17 08:21 Dose: 20 mg Fenofibrate (Tricor) 145 mg PO WB [facility] Last Admin: 08/21/17 08:20 Dose: 145 mg Furosemide (Lasix) 40 mg PO 0900,1500 [facility] Last Admin: 08/21/17 08:20 Dose: 40 mg Gabapentin (Neurontin) 600 mg PO DAILY [facility] Last Admin: 08/21/17 08:21 Dose: 600 mg Gabapentin (Neurontin) 900 mg PO PM [facility] Last Admin: 08/20/17 21:31 Dose: 900 mg Haloperidol (Haldol) 0.5 mg PO Q6H PRN PRN Reason: Extreme agitation Last Admin: 08/20/17 03:12 Dose: 0.5 mg Haloperidol Lactate (Haldol) 0.5 mg IM Q6H PRN PRN Reason: Extreme agitation Hydrochlorothiazide (Hydrodiuril) 25 mg PO DAILY [facility] Last Admin: 08/21/17 08:21 Dose: 25 mg Lorazepam (Ativan Inj) 0.5 mg IM Q6H PRN PRN Reason: Extreme agitation Lorazepam (Ativan) 0.5 mg PO Q6H PRN PRN Reason: Extreme agitation Last Admin: 08/20/17 21:32 Dose: 0.5 mg Metoprolol Succinate (Toprol Xl) 50 mg PO HS [facility] Last Admin: 08/20/17 21:32 Dose: 50 mg Potassium Chloride (K-Dur) 20 meq PO BIDBS [facility] Last Admin: 08/21/17 08:21 Dose: 20 meq Tamsulosin HCl (Flomax) 0.4 mg PO HS [facility] Last Admin: 08/20/17 21:32 Dose: 0.4 mg Trazodone HCl (Desyrel) 50 mg PO HS [facility] Last Admin: 08/20/17 21:32 Dose: 50 mg Zolpidem Tartrate (Ambien) 10 mg PO HS [facility] Last Admin: 08/20/17 21:32 Dose: 10 mg Subjective: Pt seen and chart examined. Nursing reports pt is doing well. Sleeping well and has a good appetite. On face to face the pt states he is doing a little better. mood improving. Denies S/I. Tolerating meds. Discussed changing to Lexapro and pt is in agreement Start Time: 17:00 Stop Time: 17:15 Mental Status Exam Vitals: Last Vital Signs Temp 96.8 F 08/21/17 16:00 Pulse 91 08/21/17 16:00 Resp 20 08/21/17 16:00 BP 118/57 08/21/17 16:00 Pulse Ox 95 08/21/17 16:00 Height: 1.73 m Weight: 115.5 kg - Mental Status Exam Muscle Strength/Tone: Normal Dressing: Casual Grooming: Good Attitude: Cooperative Motor Activity: Retardation Eye Contact: Fair Speech: Slowed Volume: Soft Rhythm: Appropriate Rhythm Orientation: Oriented X4 Mood: Depressed Rate of Thoughts: Appropriate Rate Thought Organization: Organized Associations: Intact Abstract Reasoning: Intact, able to abstract Thought Content: Helplessness, Worthlessness Language: Naming Intact Fund of Knowledge: Appropriate Memory: Grossly Intact Suicidal Ideation: Intermittent Homicidal Ideation: None Insight: Poor Judgement: Poor Impulse Control: Poor - Laboratory Result Diagrams: 08/19/17 20:59 08/21/17 12:43 Laboratory Results - last 24 hr 08/21/17 08/21/17 12:43 12:43 Turbidity < 20 Sodium 149 H Potassium 3.8 Chloride 102 Carbon Dioxide 33 H Anion Gap 14 BUN 22.0 H Creatinine 1.0 GFR Calculation 74 BUN/Creatinine Ratio 22 Glucose 97 Hemoglobin A1c 5.0 L Calculated Osmolality 289 H Calcium 10.2 Icterus Index < 2 Specimen Hemolysis 36 H Assessment and Plan (1) MDD (major depressive disorder), recurrent severe, without psychosis Current visit: Yes Status: Acute Hospital Course Summary Disclaimer: The visit summary below is not to be considered part of the above Progress Note. Hospital Course: 08/21/17 IMPRESSION Depression Hypernatremia Hypokalemia, POA, resolved Chronic diastolic CHF Asymptomatic bacteruria Glaucoma HTN High triglycerides Kidney stones Lumbar disc disease Obesity, BMI 38.[address] Bajwa asked the hospitalist service to see Mr. Bush on 08/21/17. BMP repeated - while hypokalemia has resolved his Na has increased to 149. BUN increased slightly; creatinine is stable. Will hold Lasix and HCTZ for now. Hold K since diuretics are on hold. Encourage fluids. Recheck BMP in am. Monitor for retention - recent echo showed good systolic function but he has a hx of chronic diastolic CHF. UA suggests UTI and there is low-colony [place] growth on UC; however, pt is asymptomatic. D/W Dr. Matias - will not treat asymptomatic bacteruria. Review of clinic notes report that he has oxygen at home PRN. He's been maintaining sats on room air since admission. Paresthesias - chronic per chart review. Continue gabapentin. Check hgb A1c. TSH was normal. Clinic/hospital records reviewed. Thank you for this consult. We will follow Mr. Bush along with you during his stay in [facility]. 08/21/17 18:14 D/C Celexa. lexapro 10mg daily
[2017-08-21] MEDS: TRAZODONE 50 MG TABLET PO SCH (21:03)
[2017-08-21] MEDS: TAMSULOSIN 0.4 MG CAPSULE PO SCH (21:03)
[2017-08-21] MEDS: ZOLPIDEM 10 MG TABLET PO SCH (21:03)
[2017-08-22] MEDS: FENOFIBRATE 145 MG TABLET PO SCH (10:35)
[2017-08-22] MEDS: ESCITALOPRAM 10 MG TABLET PO SCH (10:35)
[2017-08-22] MEDS: ASPIRIN *EC* 81 MG TABLET PO SCH (10:35)
[2017-08-22] MEDS: GABAPENTIN 300 MG CAPSULE PO SCH ×2 (10:35→20:44)
--- NOTE | 2017-08-22 10:49 | Neuropsych Progress Note ---
[facility] Subjective Date: 08/22/17 - Sujective/Severity of Illness Medications: Aspirin (Ecotrin) 81 mg PO DAILY [facility] Last Admin: 08/22/17 10:35 Dose: 81 mg Escitalopram Oxalate (Lexapro) 10 mg PO DAILY [facility] Last Admin: 08/22/17 10:35 Dose: 10 mg Fenofibrate (Tricor) 145 mg PO WB [facility] Last Admin: 08/22/17 10:35 Dose: 145 mg Furosemide (Lasix) 40 mg PO 0900,1500 [facility] Last Admin: 08/21/17 08:20 Dose: 40 mg Gabapentin (Neurontin) 600 mg PO DAILY [facility] Last Admin: 08/22/17 10:35 Dose: 600 mg Gabapentin (Neurontin) 900 mg PO PM [facility] Last Admin: 08/21/17 21:02 Dose: 900 mg Haloperidol (Haldol) 0.5 mg PO Q6H PRN PRN Reason: Extreme agitation Last Admin: 08/20/17 03:12 Dose: 0.5 mg Haloperidol Lactate (Haldol) 0.5 mg IM Q6H PRN PRN Reason: Extreme agitation Hydrochlorothiazide (Hydrodiuril) 25 mg PO DAILY [facility] Last Admin: 08/21/17 08:21 Dose: 25 mg Lorazepam (Ativan Inj) 0.5 mg IM Q6H PRN PRN Reason: Extreme agitation Lorazepam (Ativan) 0.5 mg PO Q6H PRN PRN Reason: Extreme agitation Last Admin: 08/20/17 21:32 Dose: 0.5 mg Metoprolol Succinate (Toprol Xl) 50 mg PO HS [facility] Last Admin: 08/21/17 21:03 Dose: 50 mg Potassium Chloride (K-Dur) 20 meq PO BIDBS [facility] Last Admin: 08/21/17 08:21 Dose: 20 meq Tamsulosin HCl (Flomax) 0.4 mg PO HS [facility] Last Admin: 08/21/17 21:03 Dose: 0.4 mg Trazodone HCl (Desyrel) 50 mg PO HS [facility] Last Admin: 08/21/17 21:03 Dose: 50 mg Zolpidem Tartrate (Ambien) 10 mg PO HS [facility] Last Admin: 08/21/17 21:03 Dose: 10 mg Subjective: Pt seen and chart examined. Nursing reports pt is doing well. Sleeping well and has a good appetite. On face to face the pt states he is doing better. he reports he feels his mood is improved. He denies S/I but continues to report morbid thoughts at times. Tolerating meds Start Time: 10:15 Stop Time: 10:30 Mental Status Exam Vitals: Last Vital Signs Temp 97.6 F 08/22/17 08:00 Pulse 92 08/22/17 08:00 Resp 16 08/22/17 08:00 BP 137/67 08/22/17 08:00 Pulse Ox 94 08/22/17 08:00 Height: 1.73 m Weight: 115.5 kg - Mental Status Exam Muscle Strength/Tone: Normal Dressing: Casual Grooming: Good Attitude: Cooperative Motor Activity: Retardation Eye Contact: Fair Speech: Slowed Volume: Soft Rhythm: Appropriate Rhythm Orientation: Oriented X4 Mood: Depressed Rate of Thoughts: Appropriate Rate Thought Organization: Organized Associations: Intact Abstract Reasoning: Intact, able to abstract Thought Content: Helplessness, Worthlessness Language: Naming Intact Fund of Knowledge: Appropriate Memory: Grossly Intact Suicidal Ideation: Intermittent Homicidal Ideation: None Insight: Poor Judgement: Poor Impulse Control: Poor - Laboratory Result Diagrams: 08/19/17 20:59 08/22/17 07:41 Laboratory Results - last 24 hr 08/21/17 08/21/17 08/22/17 12:43 12:43 07:41 Turbidity < 20 < 20 Sodium 149 H 146 H Potassium 3.8 3.5 L Chloride 102 102 Carbon Dioxide 33 H 34 H Anion Gap 14 10 BUN 22.0 H 20.0 Creatinine 1.0 0.8 D GFR Calculation 74 96 BUN/Creatinine Ratio 22 25 Glucose 97 101 Hemoglobin A1c 5.0 L Calculated Osmolality 289 H 284 H Calcium 10.2 10.0 Icterus Index < 2 < 2 Specimen Hemolysis 36 H < 15 Assessment and Plan (1) MDD (major depressive disorder), recurrent severe, without psychosis Current visit: Yes Status: Acute Hospital Course Summary Disclaimer: The visit summary below is not to be considered part of the above Progress Note. Hospital Course: 08/21/17 IMPRESSION Depression Hypernatremia Hypokalemia, POA, resolved Chronic diastolic CHF Asymptomatic bacteruria Glaucoma HTN High triglycerides Kidney stones Lumbar disc disease Obesity, BMI 38.[address] Bajwa asked the hospitalist service to see Mr. Bush on 08/21/17. BMP repeated - while hypokalemia has resolved his Na has increased to 149. BUN increased slightly; creatinine is stable. Will hold Lasix and HCTZ for now. Hold K since diuretics are on hold. Encourage fluids. Recheck BMP in am. Monitor for retention - recent echo showed good systolic function but he has a hx of chronic diastolic CHF. UA suggests UTI and there is low-colony [place] growth on UC; however, pt is asymptomatic. D/W Dr. Matias - will not treat asymptomatic bacteruria. Review of clinic notes report that he has oxygen at home PRN. He's been maintaining sats on room air since admission. Paresthesias - chronic per chart review. Continue gabapentin. Check hgb A1c. TSH was normal. Clinic/hospital records reviewed. Thank you for this consult. We will follow Mr. Bush along with you during his stay in [facility]. 08/21/17 18:14 D/C Celexa. lexapro 10mg daily 08/22/17 10:48 Mood continues to improve. Continues to have morbid thoughts at times Continue current care
[2017-08-22] MEDS: TAMSULOSIN 0.4 MG CAPSULE PO SCH (20:45)
[2017-08-22] MEDS: ZOLPIDEM 10 MG TABLET PO SCH (20:46)
[2017-08-22] MEDS: TRAZODONE 50 MG TABLET PO SCH (20:46)
[2017-08-23] MEDS: FENOFIBRATE 145 MG TABLET PO SCH (08:04)
[2017-08-23] MEDS: ASPIRIN *EC* 81 MG TABLET PO SCH (08:05)
[2017-08-23] MEDS: ESCITALOPRAM 10 MG TABLET PO SCH (08:05)
[2017-08-23] MEDS: GABAPENTIN 300 MG CAPSULE PO SCH ×2 (08:05→20:39)
--- NOTE | 2017-08-23 11:39 | Neuropsych Progress Note ---
[facility] Subjective Date: 08/23/17 - Sujective/Severity of Illness Medications: Aspirin (Ecotrin) 81 mg PO DAILY [facility] Last Admin: 08/23/17 08:05 Dose: 81 mg Escitalopram Oxalate (Lexapro) 10 mg PO DAILY [facility] Last Admin: 08/23/17 08:05 Dose: 10 mg Fenofibrate (Tricor) 145 mg PO WB [facility] Last Admin: 08/23/17 08:04 Dose: 145 mg Furosemide (Lasix) 40 mg PO 0900,1500 [facility] Last Admin: 08/21/17 08:20 Dose: 40 mg Gabapentin (Neurontin) 600 mg PO DAILY [facility] Last Admin: 08/23/17 08:05 Dose: 600 mg Gabapentin (Neurontin) 900 mg PO PM [facility] Last Admin: 08/22/17 20:44 Dose: 900 mg Haloperidol (Haldol) 0.5 mg PO Q6H PRN PRN Reason: Extreme agitation Last Admin: 08/20/17 03:12 Dose: 0.5 mg Haloperidol Lactate (Haldol) 0.5 mg IM Q6H PRN PRN Reason: Extreme agitation Hydrochlorothiazide (Hydrodiuril) 25 mg PO DAILY [facility] Last Admin: 08/21/17 08:21 Dose: 25 mg Lorazepam (Ativan Inj) 0.5 mg IM Q6H PRN PRN Reason: Extreme agitation Lorazepam (Ativan) 0.5 mg PO Q6H PRN PRN Reason: Extreme agitation Last Admin: 08/20/17 21:32 Dose: 0.5 mg Metoprolol Succinate (Toprol Xl) 50 mg PO HS [facility] Last Admin: 08/22/17 20:45 Dose: 50 mg Potassium Chloride (K-Dur) 20 meq PO BIDBS [facility] Last Admin: 08/21/17 08:21 Dose: 20 meq Tamsulosin HCl (Flomax) 0.4 mg PO HS [facility] Last Admin: 08/22/17 20:45 Dose: 0.4 mg Trazodone HCl (Desyrel) 50 mg PO HS [facility] Last Admin: 08/22/17 20:46 Dose: 50 mg Zolpidem Tartrate (Ambien) 10 mg PO HS [facility] Last Admin: 08/22/17 20:46 Dose: 10 mg Subjective: Pt seen and chart examined. Nursing reports pt is doing well. Sleeping well and has a good appetite. On face to face the pt states he feels a little better. Mood and anxiety slightly improved. Continues to have morbid thoughts at times. Tolerating meds Start Time: 10:15 Stop Time: 10:30 Mental Status Exam Vitals: Last Vital Signs Temp 97.2 F 08/23/17 08:00 Pulse 90 08/23/17 08:00 Resp 18 08/23/17 08:00 BP 134/69 08/23/17 08:00 Pulse Ox 90 08/23/17 08:00 Height: 1.73 m Weight: 115.5 kg - Mental Status Exam Muscle Strength/Tone: Normal Dressing: Casual Grooming: Good Attitude: Cooperative Motor Activity: Retardation Eye Contact: Fair Speech: Slowed Volume: Soft Rhythm: Appropriate Rhythm Orientation: Oriented X4 Mood: Depressed Rate of Thoughts: Appropriate Rate Thought Organization: Organized Associations: Intact Abstract Reasoning: Intact, able to abstract Thought Content: Helplessness, Worthlessness Language: Naming Intact Fund of Knowledge: Appropriate Memory: Grossly Intact Suicidal Ideation: Intermittent Homicidal Ideation: None Insight: Poor Judgement: Poor Impulse Control: Poor - Laboratory Result Diagrams: 08/19/17 20:59 08/22/17 07:41 Assessment and Plan (1) MDD (major depressive disorder), recurrent severe, without psychosis Current visit: Yes Status: Acute Hospital Course Summary Disclaimer: The visit summary below is not to be considered part of the above Progress Note. Hospital Course: 08/21/17 IMPRESSION Depression Hypernatremia Hypokalemia, POA, resolved Chronic diastolic CHF Asymptomatic bacteruria Glaucoma HTN High triglycerides Kidney stones Lumbar disc disease Obesity, BMI 38.[address] Bajwa asked the hospitalist service to see Mr. Bush on 08/21/17. BMP repeated - while hypokalemia has resolved his Na has increased to 149. BUN increased slightly; creatinine is stable. Will hold Lasix and HCTZ for now. Hold K since diuretics are on hold. Encourage fluids. Recheck BMP in am. Monitor for retention - recent echo showed good systolic function but he has a hx of chronic diastolic CHF. UA suggests UTI and there is low-colony FUEL MANAGEMENT HANDLER growth on UC; however, pt is asymptomatic. D/W Dr. Matias - will not treat asymptomatic bacteruria. Review of clinic notes report that he has oxygen at home PRN. He's been maintaining sats on room air since admission. Paresthesias - chronic per chart review. Continue gabapentin. Check hgb A1c. TSH was normal. Clinic/hospital records reviewed. Thank you for this consult. We will follow Mr. Bush along with you during his stay in [facility]. 08/21/17 18:14 D/C Celexa. lexapro 10mg daily 08/22/17 10:48 Mood continues to improve. Continues to have morbid thoughts at times Continue current care 08/23/17 11:38 Continues to improve but still has morbid thoughts at times. Continue current care
[2017-08-23] MEDS: TRAZODONE 50 MG TABLET PO SCH (20:37)
[2017-08-23] MEDS: TAMSULOSIN 0.4 MG CAPSULE PO SCH (20:37)
[2017-08-23] MEDS: ZOLPIDEM 10 MG TABLET PO SCH (20:37)
[2017-08-24] MEDS: GABAPENTIN 300 MG CAPSULE PO SCH ×2 (08:14→20:32)
[2017-08-24] MEDS: FENOFIBRATE 145 MG TABLET PO SCH (08:14)
[2017-08-24] MEDS: ESCITALOPRAM 10 MG TABLET PO SCH (08:14)
[2017-08-24] MEDS: ASPIRIN *EC* 81 MG TABLET PO SCH (08:14)
--- NOTE | 2017-08-24 18:50 | Neuropsych Progress Note ---
[facility] Subjective Date: 08/24/17 - Sujective/Severity of Illness Medications: Aspirin (Ecotrin) 81 mg PO DAILY [facility] Last Admin: 08/24/17 08:14 Dose: 81 mg Escitalopram Oxalate (Lexapro) 10 mg PO DAILY [facility] Last Admin: 08/24/17 08:14 Dose: 10 mg Fenofibrate (Tricor) 145 mg PO WB [facility] Last Admin: 08/24/17 08:14 Dose: 145 mg Furosemide (Lasix) 40 mg PO 0900,1500 [facility] Last Admin: 08/21/17 08:20 Dose: 40 mg Gabapentin (Neurontin) 600 mg PO DAILY [facility] Last Admin: 08/24/17 08:14 Dose: 600 mg Gabapentin (Neurontin) 900 mg PO PM [facility] Last Admin: 08/23/17 20:39 Dose: 900 mg Haloperidol (Haldol) 0.5 mg PO Q6H PRN PRN Reason: Extreme agitation Last Admin: 08/20/17 03:12 Dose: 0.5 mg Haloperidol Lactate (Haldol) 0.5 mg IM Q6H PRN PRN Reason: Extreme agitation Hydrochlorothiazide (Hydrodiuril) 25 mg PO DAILY [facility] Last Admin: 08/21/17 08:21 Dose: 25 mg Lorazepam (Ativan Inj) 0.5 mg IM Q6H PRN PRN Reason: Extreme agitation Lorazepam (Ativan) 0.5 mg PO Q6H PRN PRN Reason: Extreme agitation Last Admin: 08/20/17 21:32 Dose: 0.5 mg Metoprolol Succinate (Toprol Xl) 50 mg PO HS [facility] Last Admin: 08/23/17 20:38 Dose: 50 mg Potassium Chloride (K-Dur) 20 meq PO BIDBS [facility] Last Admin: 08/21/17 08:21 Dose: 20 meq Tamsulosin HCl (Flomax) 0.4 mg PO HS [facility] Last Admin: 08/23/17 20:37 Dose: 0.4 mg Trazodone HCl (Desyrel) 50 mg PO HS [facility] Last Admin: 08/23/17 20:37 Dose: 50 mg Zolpidem Tartrate (Ambien) 10 mg PO HS [facility] Last Admin: 08/23/17 20:37 Dose: 10 mg Subjective: Pt seen and chart examined. Nursing reports pt is doing well. Sleeping well and has a good appetite. On face to face the pt states he is feeling a little better. Remains depressed and anxious. Denies any S/I. Tolerating meds. Some morbid thoughts at times Start Time: 18:15 Stop Time: 18:30 Mental Status Exam Vitals: Last Vital Signs Temp 97.9 F 08/24/17 15:49 Pulse 74 08/24/17 15:49 Resp 18 08/24/17 15:49 BP 121/65 08/24/17 15:49 Pulse Ox 96 08/24/17 15:49 Height: 1.73 m Weight: 115.5 kg - Mental Status Exam Muscle Strength/Tone: Normal Dressing: Casual Grooming: Good Attitude: Cooperative Motor Activity: Retardation Eye Contact: Fair Speech: Slowed Volume: Soft Rhythm: Appropriate Rhythm Orientation: Oriented X4 Mood: Depressed Rate of Thoughts: Appropriate Rate Thought Organization: Organized Associations: Intact Abstract Reasoning: Intact, able to abstract Thought Content: Helplessness, Worthlessness Language: Naming Intact Fund of Knowledge: Appropriate Memory: Grossly Intact Suicidal Ideation: Intermittent Homicidal Ideation: None Insight: Poor Judgement: Poor Impulse Control: Poor - Laboratory Result Diagrams: 08/19/17 20:59 08/24/17 06:55 Laboratory Results - last 24 hr 08/24/17 06:55 Turbidity < 20 Sodium 145 H Potassium 3.8 Chloride 104 Carbon Dioxide 33 H Anion Gap 8 BUN 20.0 Creatinine 0.8 GFR Calculation 96 BUN/Creatinine Ratio 25 Glucose 94 Calculated Osmolality 282 H Calcium 10.0 Icterus Index < 2 Specimen Hemolysis < 15 Assessment and Plan (1) MDD (major depressive disorder), recurrent severe, without psychosis Current visit: Yes Status: Acute Hospital Course Summary Disclaimer: The visit summary below is not to be considered part of the above Progress Note. Hospital Course: 08/21/17 IMPRESSION Depression Hypernatremia Hypokalemia, POA, resolved Chronic diastolic CHF Asymptomatic bacteruria Glaucoma HTN High triglycerides Kidney stones Lumbar disc disease Obesity, BMI 38.[address] Bajwa asked the hospitalist service to see Mr. Bush on 08/21/17. BMP repeated - while hypokalemia has resolved his Na has increased to 149. BUN increased slightly; creatinine is stable. Will hold Lasix and HCTZ for now. Hold K since diuretics are on hold. Encourage fluids. Recheck BMP in am. Monitor for retention - recent echo showed good systolic function but he has a hx of chronic diastolic CHF. UA suggests UTI and there is low-colony WILDLIFE CONTROL OPERATOR growth on UC; however, pt is asymptomatic. D/W Dr. Matias - will not treat asymptomatic bacteruria. Review of clinic notes report that he has oxygen at home PRN. He's been maintaining sats on room air since admission. Paresthesias - chronic per chart review. Continue gabapentin. Check hgb A1c. TSH was normal. Clinic/hospital records reviewed. Thank you for this consult. We will follow Mr. Bush along with you during his stay in [facility]. 08/21/17 18:14 D/C Celexa. lexapro 10mg daily 08/22/17 10:48 Mood continues to improve. Continues to have morbid thoughts at times Continue current care 08/23/17 11:38 Continues to improve but still has morbid thoughts at times. Continue current care 08/24/17 18:49 Remains depressed and anxious with some morbid thoughts. Increase Lexapro to 20mg PO daily
[2017-08-24] MEDS: TAMSULOSIN 0.4 MG CAPSULE PO SCH (20:31)
[2017-08-24] MEDS: ZOLPIDEM 10 MG TABLET PO SCH (20:31)
[2017-08-24] MEDS: TRAZODONE 50 MG TABLET PO SCH (20:33)
[2017-08-25] MEDS: GABAPENTIN 300 MG CAPSULE PO SCH ×2 (08:07→20:46)
[2017-08-25] MEDS: FENOFIBRATE 145 MG TABLET PO SCH (08:07)
[2017-08-25] MEDS: ASPIRIN *EC* 81 MG TABLET PO SCH (08:10)
[2017-08-25] MEDS: ESCITALOPRAM 20 MG TABLET PO SCH (08:12)
[2017-08-25] MEDS ORDERED: Hydrocortisone 25 MG SUPP PR PRN (09:09)
--- NOTE | 2017-08-25 09:14 | Progress Note ---
- Date 08/25/17 Subjective: Paolo has been having some pain to his buttocks - it hurts when he sits down. He otherwise denies any chest pain, dyspnea at rest (sometimes has exertional dyspnea), cough/congestion, fever/chills. He denies abdominal pain or n/v. He states that he has to strain for his bowel movements frequently, but denies pain with defecation. He isn't sure if his stools are hard or soft, but he's had one nearly every day. He believes that he's had hemorrhoids in the past. Objective Vital signs: Temperature 97.2 F 08/25/17 07:38 Pulse Rate 94 08/25/17 07:38 Respiratory Rate 16 08/25/17 07:38 Blood Pressure 154/71 H 08/25/17 07:38 Pulse Oximetry 94 08/25/17 07:38 Height/Weight/BMI: Height 1.73 m Weight 115.5 kg Body Mass Index 38.7 - Constitutional Present: no acute distress, well nourished, well developed - Routine HEENT Exam Eye: Absent: conjunctival icterus ENT: Present: oropharynx clear - Routine Respiratory Exam Present: diminished air movement (right lower lobe; otherwise clear b/l) - Routine Cardiovascular Exam Present: RRR, S1, S2 - Routine Abdominal Exam Present: soft, normoactive bowel sounds, non distended, non tender - Routine Rectal Exam Visual: Present: emily blood, tenderness, heme (+) stool (stool was brown in color) Digital: Present: blood. Absent: hemorrhoid, prolapsed internal hemorrhoid Comments: Mild tenderness to right gluteal fold. No palpable abscesses. Skin tags noted to the right of cleft. Bright red blood noted around the rectum. No obvious hemorrhoids. - Routine Extremities Exam Present: edema (trace edema b/l lower ext.) - Routine Skin Exam Present: intact, dry, warm - Routine Neurological Exam Present: alert, oriented X3 Results - Labs CBC & Chem 7: 08/25/17 10:03 08/25/17 10:03 Assessment and Plan (1) MDD (major depressive disorder), recurrent severe, without psychosis Current visit: Yes Status: Acute Resuscitation Status: Full Code Assessment and Plan: IMPRESSION Rectal bleeding Depression Hypernatremia Hypokalemia, POA, resolved Chronic diastolic CHF Asymptomatic bacteruria Glaucoma HTN High triglycerides Kidney stones Lumbar disc disease Obesity, BMI 38.7 PLAN Checked CBC d/t rectal bleeding - hgb was stable at 14.1. Stool was positive for occult blood via bedside Hemoccult. Last colonoscopy was about 6 years ago - normal per pt. Start Proctofoam BID PRN for symptom relief. Add psyllium to medication regimen and encourage water intake. Start high-fiber diet. Check stool for occult blood. Recheck CBC in am for stability. HOLD ASA. Consider surgical consultation vs f/u. Sodium has increased to 150. K has improved. Push fluids; recheck in am. Continue to hold Lasix and HCTZ but will restart KDur 20 mEq x1 daily rather than his home dose of BID. Dr. Bardales's notes reviewed - Lexapro increased to 20 mg. Hospital Course Summary Disclaimer: The visit summary below is not to be considered part of the above Progress Note. Hospital Course: 08/21/17 IMPRESSION Depression Hypernatremia Hypokalemia, POA, resolved Chronic diastolic CHF Asymptomatic bacteruria Glaucoma HTN High triglycerides Kidney stones Lumbar disc disease Obesity, BMI 38.[address] Bajwa asked the hospitalist service to see Mr. Bush on 08/21/17. BMP repeated - while hypokalemia has resolved his Na has increased to 149. BUN increased slightly; creatinine is stable. Will hold Lasix and HCTZ for now. Hold K since diuretics are on hold. Encourage fluids. Recheck BMP in am. Monitor for retention - recent echo showed good systolic function but he has a hx of chronic diastolic CHF. UA suggests UTI and there is low-colony SUPERINTENDENT SYSTEM OPERATION growth on UC; however, pt is asymptomatic. D/W Dr. Matias - will not treat asymptomatic bacteruria. Review of clinic notes report that he has oxygen at home PRN. He's been maintaining sats on room air since admission. Paresthesias - chronic per chart review. Continue gabapentin. Check hgb A1c. TSH was normal. Clinic/hospital records reviewed. Thank you for this consult. We will follow Mr. Bush along with you during his stay in [facility]. 08/21/17 18:14 D/C Celexa. lexapro 10mg daily 08/22/17 10:48 Mood continues to improve. Continues to have morbid thoughts at times Continue current care 08/23/17 11:38 Continues to improve but still has morbid thoughts at times. Continue current care 08/24/17 18:49 Remains depressed and anxious with some morbid thoughts. Increase Lexapro to 20mg PO daily 08/25/17 Checked CBC d/t rectal bleeding - hgb was stable at 14.1. Stool was positive for occult blood via bedside Hemoccult. Last colonoscopy was about 6 years ago - normal per pt. Start Proctofoam BID PRN for symptom relief. Add psyllium to medication regimen and encourage water intake. Start high-fiber diet. Check stool for occult blood. Recheck CBC in am for stability. HOLD ASA. Consider surgical consultation vs f/u. Sodium has increased to 150. K has improved. Push fluids; recheck in am. Continue to hold Lasix and HCTZ but will restart KDur 20 mEq x1 daily rather than his home dose of BID. Dr. Bardales's notes reviewed - Lexapro increased to 20 mg.
[2017-08-25] MEDS ORDERED: POLYETHYL GLYCOL 3350 17gm PACKET PO PRN (09:21)
--- NOTE | 2017-08-25 18:43 | Neuropsych Progress Note ---
[facility] Subjective Date: 08/25/17 - Sujective/Severity of Illness Medications: Aspirin (Ecotrin) 81 mg PO DAILY [facility] Last Admin: 08/25/17 08:10 Dose: 81 mg Escitalopram Oxalate (Lexapro) 20 mg PO DAILY [facility] Last Admin: 08/25/17 08:12 Dose: 20 mg Fenofibrate (Tricor) 145 mg PO WB [facility] Last Admin: 08/25/17 08:07 Dose: 145 mg Furosemide (Lasix) 40 mg PO 0900,1500 [facility] Last Admin: 08/21/17 08:20 Dose: 40 mg Gabapentin (Neurontin) 600 mg PO DAILY [facility] Last Admin: 08/25/17 08:07 Dose: 600 mg Gabapentin (Neurontin) 900 mg PO PM [facility] Last Admin: 08/24/17 20:32 Dose: 900 mg Haloperidol (Haldol) 0.5 mg PO Q6H PRN PRN Reason: Extreme agitation Last Admin: 08/20/17 03:12 Dose: 0.5 mg Haloperidol Lactate (Haldol) 0.5 mg IM Q6H PRN PRN Reason: Extreme agitation Hydrochlorothiazide (Hydrodiuril) 25 mg PO DAILY [facility] Last Admin: 08/21/17 08:21 Dose: 25 mg Hydrocortisone Acetate (Anusol-Hc Supp) 25 mg CA BID PRN Lorazepam (Ativan Inj) 0.5 mg IM Q6H PRN PRN Reason: Extreme agitation Lorazepam (Ativan) 0.5 mg PO Q6H PRN PRN Reason: Extreme agitation Last Admin: 08/20/17 21:32 Dose: 0.5 mg Metoprolol Succinate (Toprol Xl) 50 mg PO HS [facility] Last Admin: 08/24/17 20:32 Dose: 50 mg Polyethylene Glycol (Miralax) 17 gm PO DAILY PRN PRN Reason: Constipation Potassium Chloride (K-Dur) 20 meq PO BIDBS [facility] Last Admin: 08/21/17 08:21 Dose: 20 meq Potassium Chloride (K-Dur) 20 meq PO WB [facility] Last Admin: 08/25/17 17:36 Dose: 20 meq Psyllium Hydrophilic Mucilloid (Metamucil) 1 packet PO HS [facility] Tamsulosin HCl (Flomax) 0.4 mg PO HS [facility] Last Admin: 08/24/17 20:31 Dose: 0.4 mg Trazodone HCl (Desyrel) 50 mg PO [facility] Last Admin: 08/24/17 20:33 Dose: 50 mg Zolpidem Tartrate (Ambien) 10 mg PO [facility] Last Admin: 08/24/17 20:31 Dose: 10 mg Subjective: Pt seen and chart examined. Nursing reports pt is doing well. Sleeping well and has a good appetite. On face to face the pt states he is feeling better. He feels his mood is improved and he denies any S/I. He reports tolerating his meds Start Time: 17:15 Stop Time: 17:30 Mental Status Exam Vitals: Last Vital Signs Temp 98.0 F 08/25/17 15:57 Pulse 87 08/25/17 15:57 Resp 18 08/25/17 15:57 BP 112/63 08/25/17 15:57 Pulse Ox 94 08/25/17 15:57 Height: 1.73 m Weight: 115.5 kg - Mental Status Exam Muscle Strength/Tone: Normal Dressing: Casual Grooming: Good Attitude: Cooperative Motor Activity: Retardation Eye Contact: Fair Speech: Slowed Volume: Soft Rhythm: Appropriate Rhythm Orientation: Oriented X4 Mood: Depressed Rate of Thoughts: Appropriate Rate Thought Organization: Organized Associations: Intact Abstract Reasoning: Intact, able to abstract Thought Content: Helplessness, Worthlessness Language: Naming Intact Fund of Knowledge: Appropriate Memory: Grossly Intact Suicidal Ideation: Intermittent Homicidal Ideation: None Insight: Poor Judgement: Poor Impulse Control: Poor - Laboratory Result Diagrams: 08/25/17 10:03 08/25/17 10:03 Laboratory Results - last 24 hr 08/25/17 08/25/17 10:03 10:03 WBC 5.3 RBC 4.45 L Hgb 14.1 Hct 42.4 MCV 95.3 MCH 31.7 MCHC 33.3 RDW Std Deviation 45.8 Plt Count 168 MPV 9.6 Immature Gran % (Auto) 0.0 Neut % (Auto) 59.7 Lymph % (Auto) 28.0 Hart % (Auto) 10.2 H Eos % (Auto) 1.5 Baso % (Auto) 0.6 Neut # (Auto) 3.2 Lymph # (Auto) 1.5 Hart # (Auto) 0.5 Eos # (Auto) 0.1 Baso # (Auto) 0.0 Abs Immat Gran (auto) 0.00 Turbidity < 20 Sodium 150 H Potassium 3.6 Chloride 108 H Carbon Dioxide 32 H Anion Gap 10 BUN 21.0 H Creatinine 0.9 GFR Calculation 83 BUN/Creatinine Ratio 23 Glucose 112 H Calculated Osmolality 292 H Calcium 10.3 H Icterus Index < 2 Specimen Hemolysis < 15 Assessment and Plan (1) MDD (major depressive disorder), recurrent severe, without psychosis Current visit: Yes Status: Acute Hospital Course Summary Disclaimer: The visit summary below is not to be considered part of the above Progress Note. Hospital Course: 08/21/17 IMPRESSION Depression Hypernatremia Hypokalemia, POA, resolved Chronic diastolic CHF Asymptomatic bacteruria Glaucoma HTN High triglycerides Kidney stones Lumbar disc disease Obesity, BMI 38.[address] Bajwa asked the hospitalist service to see Mr. Bush on 08/21/17. BMP repeated - while hypokalemia has resolved his Na has increased to 149. BUN increased slightly; creatinine is stable. Will hold Lasix and HCTZ for now. Hold K since diuretics are on hold. Encourage fluids. Recheck BMP in am. Monitor for retention - recent echo showed good systolic function but he has a hx of chronic diastolic CHF. UA suggests UTI and there is low-colony TITLE INVESTIGATOR growth on UC; however, pt is asymptomatic. D/W Dr. Matias - will not treat asymptomatic bacteruria. Review of clinic notes report that he has oxygen at home PRN. He's been maintaining sats on room air since admission. Paresthesias - chronic per chart review. Continue gabapentin. Check hgb A1c. TSH was normal. Clinic/hospital records reviewed. Thank you for this consult. We will follow Mr. Bush along with you during his stay in [facility]. 08/21/17 18:14 D/C Celexa. lexapro 10mg daily 08/22/17 10:48 Mood continues to improve. Continues to have morbid thoughts at times Continue current care 08/23/17 11:38 Continues to improve but still has morbid thoughts at times. Continue current care 08/24/17 18:49 Remains depressed and anxious with some morbid thoughts. Increase Lexapro to 20mg PO daily 08/25/17 Checked CBC d/t rectal bleeding - hgb was stable at 14.1. Stool was positive for occult blood via bedside Hemoccult. Last colonoscopy was about 6 years ago - normal per pt. Start Proctofoam BID PRN for symptom relief. Add psyllium to medication regimen and encourage water intake. Start high-fiber diet. Check stool for occult blood. Recheck CBC in am for stability. HOLD ASA. Consider surgical consultation vs f/u. Sodium has increased to 150. K has improved. Push fluids; recheck in am. Continue to hold Lasix and HCTZ but will restart KDur 20 mEq x1 daily rather than his home dose of BID. Dr. Bardales's notes reviewed - Lexapro increased to 20 mg. 08/25/17 18:43 Pt improving. Continue current care
[2017-08-25] MEDS: TRAZODONE 50 MG TABLET PO SCH (20:47)
[2017-08-25] MEDS: ZOLPIDEM 10 MG TABLET PO SCH (20:47)
[2017-08-25] MEDS: TAMSULOSIN 0.4 MG CAPSULE PO SCH (20:47)
[2017-08-25] MEDS: PSYLLIUM PACKET PO SCH (20:47)
[2017-08-26] MEDS ORDERED: POLYETHYL GLYCOL 3350 17gm PACKET PO SCH (09:00)
[2017-08-26] MEDS: GABAPENTIN 300 MG CAPSULE PO SCH ×2 (09:04→20:44)
[2017-08-26] MEDS: FENOFIBRATE 145 MG TABLET PO SCH (09:04)
[2017-08-26] MEDS: ESCITALOPRAM 20 MG TABLET PO SCH (09:04)
--- NOTE | 2017-08-26 17:56 | Neuropsych Progress Note ---
[facility] Subjective Date: 08/26/17 - Sujective/Severity of Illness Medications: Aspirin (Ecotrin) 81 mg PO DAILY [facility] Last Admin: 08/25/17 08:10 Dose: 81 mg Bimatoprost (Lumigan) 1 drop EACH EYE HS [facility] Dorzolamide/Timolol (Cosopt Ocumeter Plus) 1 drops EACH EYE BID [place] Escitalopram Oxalate (Lexapro) 20 mg PO DAILY [facility] Last Admin: 08/26/17 09:04 Dose: 20 mg Fenofibrate (Tricor) 145 mg PO WB [facility] Last Admin: 08/26/17 09:04 Dose: 145 mg Furosemide (Lasix) 40 mg PO 0900,1500 [facility] Last Admin: 08/21/17 08:20 Dose: 40 mg Gabapentin (Neurontin) 600 mg PO DAILY [facility] Last Admin: 08/26/17 09:04 Dose: 600 mg Gabapentin (Neurontin) 900 mg PO PM [facility] Last Admin: 08/25/17 20:46 Dose: 900 mg Haloperidol (Haldol) 0.5 mg PO Q6H PRN PRN Reason: Extreme agitation Last Admin: 08/20/17 03:12 Dose: 0.5 mg Haloperidol Lactate (Haldol) 0.5 mg IM Q6H PRN PRN Reason: Extreme agitation Hydrochlorothiazide (Hydrodiuril) 25 mg PO DAILY [facility] Last Admin: 08/21/17 08:21 Dose: 25 mg Hydrocortisone Acetate (Anusol-Hc Supp) 25 mg AR BID PRN Lorazepam (Ativan Inj) 0.5 mg IM Q6H PRN PRN Reason: Extreme agitation Lorazepam (Ativan) 0.5 mg PO Q6H PRN PRN Reason: Extreme agitation Last Admin: 08/20/17 21:32 Dose: 0.5 mg Metoprolol Succinate (Toprol Xl) 50 mg PO HS [facility] Last Admin: 08/25/17 20:46 Dose: 50 mg Polyethylene Glycol (Miralax) 17 gm PO DAILY PRN PRN Reason: Constipation Potassium Chloride (K-Dur) 20 meq PO BIDBS [facility] Last Admin: 08/21/17 08:21 Dose: 20 meq Potassium Chloride (K-Dur) 20 meq PO WB [facility] Last Admin: 08/26/17 09:04 Dose: 20 meq Psyllium Hydrophilic Mucilloid (Metamucil) 1 packet PO HS [facility] Last Admin: 08/25/17 20:47 Dose: 1 packet Tamsulosin HCl (Flomax) 0.4 mg PO [facility] Last Admin: 08/25/17 20:47 Dose: 0.4 mg Trazodone HCl (Desyrel) 50 mg PO [facility] Last Admin: 08/25/17 20:47 Dose: 50 mg Zolpidem Tartrate (Ambien) 10 mg PO [facility] Last Admin: 08/25/17 20:47 Dose: 10 mg Subjective: Pt seen and chart examined. Nursing reports pt continues to improve. Sleeping well and has a good appetite. On face to face the pt states he is feeling better. Mood and anxiety improving. Denies S/I. Tolerating meds. Start Time: 17:00 Stop Time: 17:15 Mental Status Exam Vitals: Last Vital Signs Temp 97.6 F 08/26/17 16:00 Pulse 66 08/26/17 16:00 Resp 20 08/26/17 16:00 BP 123/67 08/26/17 16:00 Pulse Ox 96 08/26/17 16:00 Height: 1.73 m Weight: 115.5 kg - Mental Status Exam Muscle Strength/Tone: Normal Dressing: Casual Grooming: Good Attitude: Cooperative Motor Activity: Retardation Eye Contact: Fair Speech: Slowed Volume: Soft Rhythm: Appropriate Rhythm Orientation: Oriented X4 Mood: Depressed Rate of Thoughts: Appropriate Rate Thought Organization: Organized Associations: Intact Abstract Reasoning: Intact, able to abstract Thought Content: Helplessness, Worthlessness Language: Naming Intact Fund of Knowledge: Appropriate Memory: Grossly Intact Suicidal Ideation: Intermittent Homicidal Ideation: None Insight: Poor Judgement: Poor Impulse Control: Poor - Laboratory Result Diagrams: 08/26/17 05:33 08/26/17 05:33 Laboratory Results - last 24 hr 08/26/17 08/26/17 08/26/17 05:33 05:33 11:16 WBC 6.5 RBC 4.32 L Hgb 13.7 Hct 40.9 L MCV 94.7 MCH 31.7 MCHC 33.5 RDW Std Deviation 45.5 Plt Count 172 MPV 9.9 Immature Gran % (Auto) Not performed Neut % (Auto) Not performed Lymph % (Auto) Not performed Steele % (Auto) Not performed Eos % (Auto) Not performed Baso % (Auto) Not performed Neut # (Auto) Not performed Lymph # (Auto) Not performed Steele # (Auto) Not performed Eos # (Auto) Not performed Baso # (Auto) Not performed Abs Immat Gran (auto) Not performed Neutrophils % (Manual) 45.0 Lymphocytes % (Manual) 45.0 Monocytes % (Manual) 7.0 Eosinophils % (Manual) 3.0 Neutrophils # (Manual) 2.9 Lymphocytes # (Manual) 2.9 Monocytes # (Manual) 0.5 Eosinophils # (Manual) 0.2 RBC Morph Comment Normal Turbidity < 20 Sodium 148 H Potassium 4.4 D Chloride 113 H Carbon Dioxide 29 Anion Gap 6 BUN 20.0 Creatinine 0.8 GFR Calculation 96 BUN/Creatinine Ratio 25 Glucose 92 Calculated Osmolality 287 H Calcium 10.2 Icterus Index < 2 Specimen Hemolysis 35 H Stool Occult Blood Negative Assessment and Plan (1) MDD (major depressive disorder), recurrent severe, without psychosis Current visit: Yes Status: Acute Hospital Course Summary Disclaimer: The visit summary below is not to be considered part of the above Progress Note. Hospital Course: 08/21/17 IMPRESSION Depression Hypernatremia Hypokalemia, POA, resolved Chronic diastolic CHF Asymptomatic bacteruria Glaucoma HTN High triglycerides Kidney stones Lumbar disc disease Obesity, BMI 38.[address] Bajwa asked the hospitalist service to see Mr. Bush on 08/21/17. BMP repeated - while hypokalemia has resolved his Na has increased to 149. BUN increased slightly; creatinine is stable. Will hold Lasix and HCTZ for now. Hold K since diuretics are on hold. Encourage fluids. Recheck BMP in am. Monitor for retention - recent echo showed good systolic function but he has a hx of chronic diastolic CHF. UA suggests UTI and there is low-colony [employer] PRODUCTION [employer]IST growth on UC; however, pt is asymptomatic. D/W Dr. Matias - will not treat asymptomatic bacteruria. Review of clinic notes report that he has oxygen at home PRN. He's been maintaining sats on room air since admission. Paresthesias - chronic per chart review. Continue gabapentin. Check hgb A1c. TSH was normal. Clinic/hospital records reviewed. Thank you for this consult. We will follow Mr. Bush along with you during his stay in [facility]. 08/21/17 18:14 D/C Celexa. lexapro 10mg daily 08/22/17 10:48 Mood continues to improve. Continues to have morbid thoughts at times Continue current care 08/23/17 11:38 Continues to improve but still has morbid thoughts at times. Continue current care 08/24/17 18:49 Remains depressed and anxious with some morbid thoughts. Increase Lexapro to 20mg PO daily 08/25/17 Checked CBC d/t rectal bleeding - hgb was stable at 14.1. Stool was positive for occult blood via bedside Hemoccult. Last colonoscopy was about 6 years ago - normal per pt. Start Proctofoam BID PRN for symptom relief. Add psyllium to medication regimen and encourage water intake. Start high-fiber diet. Check stool for occult blood. Recheck CBC in am for stability. HOLD ASA. Consider surgical consultation vs f/u. Sodium has increased to 150. K has improved. Push fluids; recheck in am. Continue to hold Lasix and HCTZ but will restart KDur 20 mEq x1 daily rather than his home dose of BID. Dr. Bardales's notes reviewed - Lexapro increased to 20 mg. 08/25/17 18:43 Pt improving. Continue current care 08/26/17 17:55 Continues to improve. Some morbid thoughts at times. Continue current care
[2017-08-26] MEDS: BIMATOPROST 0.01% EACH EYE SCH (20:45)
[2017-08-26] MEDS: EYE EACH EYE SCH (20:45)
[2017-08-26] MEDS: TRAZODONE 50 MG TABLET PO SCH (20:49)
[2017-08-26] MEDS: ZOLPIDEM 10 MG TABLET PO SCH (20:49)
[2017-08-26] MEDS: PSYLLIUM PACKET PO SCH (20:53)
[2017-08-26] MEDS: TAMSULOSIN 0.4 MG CAPSULE PO SCH (21:20)
[2017-08-27] MEDS: FENOFIBRATE 145 MG TABLET PO SCH (08:27)
[2017-08-27] MEDS: ESCITALOPRAM 20 MG TABLET PO SCH (08:28)
[2017-08-27] MEDS: GABAPENTIN 300 MG CAPSULE PO SCH ×2 (08:28→20:56)
--- NOTE | 2017-08-27 19:15 | Neuropsych Progress Note ---
[facility] Subjective Date: 08/27/17 - Sujective/Severity of Illness Medications: Aspirin (Ecotrin) 81 mg PO DAILY [facility] Last Admin: 08/25/17 08:10 Dose: 81 mg Bimatoprost (Lumigan) 1 drop EACH EYE HS [facility] Last Admin: 08/26/17 20:45 Dose: 1 drop Dorzolamide/Timolol (Cosopt Ocumeter Plus) 1 drops EACH EYE BID [facility] Last Admin: 08/27/17 08:27 Dose: 1 drops Escitalopram Oxalate (Lexapro) 20 mg PO DAILY [facility] Last Admin: 08/27/17 08:28 Dose: 20 mg Fenofibrate (Tricor) 145 mg PO WB [facility] Last Admin: 08/27/17 08:27 Dose: 145 mg Furosemide (Lasix) 40 mg PO 0900,1500 [facility] Last Admin: 08/21/17 08:20 Dose: 40 mg Gabapentin (Neurontin) 600 mg PO DAILY [facility] Last Admin: 08/27/17 08:28 Dose: 600 mg Gabapentin (Neurontin) 900 mg PO PM [facility] Last Admin: 08/26/17 20:44 Dose: 900 mg Haloperidol (Haldol) 0.5 mg PO Q6H PRN PRN Reason: Extreme agitation Last Admin: 08/20/17 03:12 Dose: 0.5 mg Haloperidol Lactate (Haldol) 0.5 mg IM Q6H PRN PRN Reason: Extreme agitation Hydrochlorothiazide (Hydrodiuril) 25 mg PO DAILY [facility] Last Admin: 08/21/17 08:21 Dose: 25 mg Hydrocortisone Acetate (Anusol-Hc Supp) 25 mg DE BID PRN Lorazepam (Ativan Inj) 0.5 mg IM Q6H PRN PRN Reason: Extreme agitation Lorazepam (Ativan) 0.5 mg PO Q6H PRN PRN Reason: Extreme agitation Last Admin: 08/20/17 21:32 Dose: 0.5 mg Metoprolol Succinate (Toprol Xl) 50 mg PO HS [facility] Last Admin: 08/26/17 20:48 Dose: 50 mg Polyethylene Glycol (Miralax) 17 gm PO DAILY PRN PRN Reason: Constipation Potassium Chloride (K-Dur) 20 meq PO BIDBS [facility] Last Admin: 08/21/17 08:21 Dose: 20 meq Potassium Chloride (K-Dur) 20 meq PO WB [facility] Last Admin: 08/27/17 08:27 Dose: 20 meq Psyllium Hydrophilic Mucilloid (Metamucil) 1 packet PO [facility] Last Admin: 08/26/17 20:53 Dose: 1 packet Tamsulosin HCl (Flomax) 0.4 mg PO [facility] Last Admin: 08/26/17 21:20 Dose: 0.4 mg Trazodone HCl (Desyrel) 50 mg PO [facility] Last Admin: 08/26/17 20:49 Dose: 50 mg Zolpidem Tartrate (Ambien) 10 mg PO [facility] Last Admin: 08/26/17 20:49 Dose: 10 mg Subjective: Pt seen and chart examined. Nursing reports pt continues to improve. Sleeping well and has a good appetite. On face to face the pt states he is feeling better. Mood and anxiety continue to improve. Denies S/I. Tolerating meds. Feels safe for D/C Start Time: 17:15 Stop Time: 17:30 Mental Status Exam Vitals: Last Vital Signs Temp 97.7 F 08/27/17 15:38 Pulse 66 08/27/17 15:38 Resp 18 08/27/17 15:38 BP 126/62 08/27/17 15:38 Pulse Ox 96 08/27/17 15:38 Height: 1.73 m Weight: 114.5 kg - Mental Status Exam Muscle Strength/Tone: Normal Dressing: Casual Grooming: Good Attitude: Cooperative Motor Activity: Retardation Eye Contact: Fair Speech: Slowed Volume: Soft Rhythm: Appropriate Rhythm Orientation: Oriented X4 Mood: Neutral Rate of Thoughts: Appropriate Rate Thought Organization: Organized Associations: Intact Abstract Reasoning: Intact, able to abstract Thought Content: Helplessness, Worthlessness Language: Naming Intact Fund of Knowledge: Appropriate Memory: Grossly Intact Suicidal Ideation: None Homicidal Ideation: None Insight: Fair Judgement: Fair Impulse Control: Good - Laboratory Result Diagrams: 08/26/17 05:33 08/26/17 05:33 Laboratory Results - last 24 hr 08/27/17 07:13 Triglycerides 167 H Cholesterol 170 LDL Cholesterol, Calc 107.6 VLDL Cholesterol 33.4 H HDL Cholesterol 29 L Cholesterol/HDL Ratio 5.9 H Assessment and Plan (1) MDD (major depressive disorder), recurrent severe, without psychosis Current visit: Yes Status: Acute Hospital Course Summary Disclaimer: The visit summary below is not to be considered part of the above Progress Note. Hospital Course: 08/21/17 IMPRESSION Depression Hypernatremia Hypokalemia, POA, resolved Chronic diastolic CHF Asymptomatic bacteruria Glaucoma HTN High triglycerides Kidney stones Lumbar disc disease Obesity, BMI 38.[address] Bajwa asked the hospitalist service to see Mr. Bush on 08/21/17. BMP repeated - while hypokalemia has resolved his Na has increased to 149. BUN increased slightly; creatinine is stable. Will hold Lasix and HCTZ for now. Hold K since diuretics are on hold. Encourage fluids. Recheck BMP in am. Monitor for retention - recent echo showed good systolic function but he has a hx of chronic diastolic CHF. 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 D/W Dr. Matias - will not treat asymptomatic bacteruria. Review of clinic notes report that he has oxygen at home PRN. He's been maintaining sats on room air since admission. Paresthesias - chronic per chart review. Continue gabapentin. Check hgb A1c. TSH was normal. Clinic/hospital records reviewed. Thank you for this consult. We will follow Mr. Bush along with you during his stay in [facility]. 08/21/17 18:14 D/C Celexa. lexapro 10mg daily 08/22/17 10:48 Mood continues to improve. Continues to have morbid thoughts at times Continue current care 08/23/17 11:38 Continues to improve but still has morbid thoughts at times. Continue current care 08/24/17 18:49 Remains depressed and anxious with some morbid thoughts. Increase Lexapro to 20mg PO daily 08/25/17 Checked CBC d/t rectal bleeding - hgb was stable at 14.1. Stool was positive for occult blood via bedside Hemoccult. Last colonoscopy was about 6 years ago - normal per pt. Start Proctofoam BID PRN for symptom relief. Add psyllium to medication regimen and encourage water intake. Start high-fiber diet. Check stool for occult blood. Recheck CBC in am for stability. HOLD ASA. Consider surgical consultation vs f/u. Sodium has increased to 150. K has improved. Push fluids; recheck in am. Continue to hold Lasix and HCTZ but will restart KDur 20 mEq x1 daily rather than his home dose of BID. Dr. Bardales's notes reviewed - Lexapro increased to 20 mg. 08/25/17 18:43 Pt improving. Continue current care 08/26/17 17:55 Continues to improve. Some morbid thoughts at times. Continue current care 08/27/17 19:15 D/C tomorrow
--- NOTE | 2017-08-27 19:19 | Discharge Instructions ---
Discharge Plan - Med Rec/Dispo Referrals/Follow Up: Frank Bajwa MD [Family Provider] - (Dr. Columba Bajwa on 09/02/17 at 1:45 pm for Hosp. follow-up. [address] [address] DPOA declines Mental Health follow-up at this time. ) Additional Instructions: Discharge Diagnosis: MDD Rec Severe Reasons for Admission: Depressed mood, congruent affect, and admitted to taking two tablets of Xanax and Trazodone. IN CASE OF PSYCHIATRIC EMERGENCY, CONTACT GENERATIONS STAFF AT [phone] ( available 24 hrs daily). Prescriptions: New Escitalopram [Lexapro] 20 mg PO DAILY #30 tab Trazodone [Desyrel] 50 mg PO HS #30 tab Zolpidem [Ambien] 10 mg PO HS #30 tablet Discontinued Citalopram Hydrobromide [Citalopram HBr] 20 mg PO DAILY #0 No Action hydroCHLOROthiazide [Hydrochlorothiazide] 25 tab PO DAILY #0 Trazodone HCl 50 mg PO HS #0 Gabapentin 900 mg PO PM Gabapentin 600 mg PO AM Fenofibrate Nanocrystallized [Fenofibrate] 145 mg PO DAILY Potassium Chloride [K-Dur] 20 meq PO BID Furosemide [Lasix] 40 mg PO BID Zolpidem [Ambien] 10 mg PO HS Dorzolamide HCl/Timolol Maleat [Cosopt Eye Drops] 1 drop EACH EYE BID Aspirin [Aspir 81] 81 mg PO DAILY #0 Angela-3 Fatty Acids/Fish Oil [Angela 3 1,000 mg Softgel] 1 cap PO DAILY #0 Tamsulosin [Flomax] 0.4 mg PO HS Metoprolol Succinate (XL) [Toprol Xl] 50 mg PO HS Bimatoprost [Lumigan] 1 drops EACH EYE HS Discharge Instructions/Outpatient Orders: Provider Discharge Instructions Location: Determined By Patient - Disposition 01 Discharged Home, Self-Care
[2017-08-27] MEDS: PSYLLIUM PACKET PO SCH (20:59)
[2017-08-27] MEDS: TAMSULOSIN 0.4 MG CAPSULE PO SCH (20:59)
[2017-08-27] MEDS: ZOLPIDEM 10 MG TABLET PO SCH (20:59)
[2017-08-27] MEDS: TRAZODONE 50 MG TABLET PO SCH (20:59)
[2017-08-27] MEDS: EYE EACH EYE SCH (21:14)
[2017-08-27] MEDS: BIMATOPROST 0.01% EACH EYE SCH (21:14)
--- NOTE | 2017-08-28 08:10 | Discharge Instructions ---
Discharge Plan - Med Rec/Dispo Referrals/Follow Up: Frank Bajwa MD [Family Provider] - (Dr. Columba Bajwa on 09/02/17 at 1:45 pm for Hosp. follow-up. [address] [address] DPOA declines Mental Health follow-up at this time. ) Additional Instructions: Discharge Diagnosis: MDD Rec Severe Reasons for Admission: Depressed mood, congruent affect, and admitted to taking two tablets of Xanax and Trazodone. IN CASE OF PSYCHIATRIC EMERGENCY, CONTACT GENERATIONS STAFF AT [phone] ( available 24 hrs daily). HOSPITALIST CONCERNS 1. Diuretics were held d/t increasing Na - trends showed it had started to decline. HCTZ and Lasix were not restarted on discharge. He still required KDur BID to maintain levels. 2. He developed rectal bleeding but hgb remained stable. Proctofoam BID ordered. ASA and fish oil were discontinued. Prescriptions: New Escitalopram [Lexapro] 20 mg PO DAILY #30 tab Trazodone [Desyrel] 50 mg PO HS #30 tab Zolpidem [Ambien] 10 mg PO HS #30 tablet Hydrocortisone SUPP [Anusol-Hc Supp] [address] BID PRN 7 Days supp PRN Reason: Hemorrhoids Psyllium [Metamucil] 1 packet PO HS packet Continue Trazodone HCl 50 mg PO HS #0 Gabapentin 900 mg PO PM Gabapentin 600 mg PO AM Fenofibrate Nanocrystallized [Fenofibrate] 145 mg PO DAILY Potassium Chloride [K-Dur] 20 meq PO BID Zolpidem [Ambien] 10 mg PO HS Dorzolamide HCl/Timolol Maleat [Cosopt Eye Drops] 1 drop EACH EYE BID Tamsulosin [Flomax] 0.4 mg PO HS Metoprolol Succinate (XL) [Toprol Xl] 50 mg PO HS Bimatoprost [Lumigan] 1 drops EACH EYE HS Discontinued hydroCHLOROthiazide [Hydrochlorothiazide] 25 tab PO DAILY #0 Furosemide [Lasix] 40 mg PO BID Aspirin [Aspir 81] 81 mg PO DAILY #0 [place]-3 Fatty Acids/Fish Oil [[place] 3 1,000 mg Softgel] 1 cap PO DAILY #0 Citalopram Hydrobromide [Citalopram HBr] 20 mg PO DAILY #0 Discharge Instructions/Outpatient Orders: Provider Discharge Instructions Location: Determined By Patient BMP - Basic Metabolic - [facility] Time Frame: 2 Days, Location: Determined By Patient CBC w/o Diff- Hemagram - [facility] Time Frame: 2 Days, Location: Determined By Patient - Disposition 01 Discharged Home, Self-Care
[2017-08-28] MEDS: FENOFIBRATE 145 MG TABLET PO SCH (08:34)
[2017-08-28] MEDS: ESCITALOPRAM 20 MG TABLET PO SCH (08:35)
[2017-08-28] MEDS: GABAPENTIN 300 MG CAPSULE PO SCH (08:35)
[2017-08-28 09:35] VITALS: BP 130/67; PULSE 87; RESP 16; TEMP 97.4; O2SAT 93
== END 2017-08-28 09:55 | disposition home or self-care (01) | DRG 885 ==
LOC: ED 20:08 → GEN 22:02
PROVIDERS: ADMIT Psychiatry & Neurology Psychiatry; ATTEND Psychiatry & Neurology Psychiatry

== ENCOUNTER 2017-09-07 04:22 | Inpatient (IN) ==
[2017-09-07] MEDS ORDERED: NS 1,000 ML IV ONE (04:38)
--- NOTE | 2017-09-07 04:46 | Emergency Department Report ---
Medical Clearance HPI - General Stated complaint: S.I. <Bj Melendez Q - 09/07/17 07:59> Source: patient, EMS, old records reviewed <March,Johnny 09/07/17 04:47> Mode of arrival: EMS <09/07/17 04:47> Limitations: no limitations <09/07/17 04:47> - History of Present Illness HPI Narrative: 71yo man presents to the ER today by EMS. Pt has an ongoing h/o depression with passive SI. Pt has repeatedly tried to neglect himself to , but then reverses course or is 'found'. Has been hospitalized twice in the last 30 days; most recently was d/c'ed from [facility] 2 weeks ago. Pt pressed his medical alarm this AM, because he 'chickened out'. When asked why he 'wants it all to end', he can't give a definitive answer. <March,Johnny 09/07/17 04:47> Onset (ago): month(s) <09/07/17 04:47> Reason for Medical Clearance: psychiatric condition <09/07/17 04 :47> Place: home <09/07/17 04:47> Traumatic Symptoms: denies traumatic injury <09/07/17 04:47> Associated Symptoms: denies other symptoms <09/07/17 04:47> Treatments Prior to Arrival: none <March,Johnny 09/07/17 04:47> Home medications: Home Medications Medication Instructions Recorded Confirmed Fenofibrate Nanocrystallized 145 mg PO DAILY 07/11/17 08/19/17 [Fenofibrate] Gabapentin 600 mg PO AM 07/11/17 08/19/17 Gabapentin 900 mg PO PM 07/11/17 08/19/17 Metoprolol Succinate (XL) [Toprol 50 mg PO HS 08/19/17 08/19/17 Xl] Tamsulosin [Flomax] 0.4 mg PO HS 08/19/17 08/19/17 Zolpidem [Ambien] 10 mg PO HS 08/19/17 08/19/17 Bimatoprost [Lumigan] 1 drops EACH EYE HS 08/26/17 08/26/17 Dorzolamide HCl/Timolol Maleat 1 drop EACH EYE BID 08/26/17 08/26/17 [Cosopt Eye Drops] Previous Rx's Medication Instructions Recorded Escitalopram [Lexapro] 20 mg PO DAILY #30 tab 08/27/17 Trazodone [Desyrel] 50 mg PO HS #30 tab 08/27/17 Hydrocortisone SUPP [Anusol-Hc 25 mg WA BID PRN 7 Days supp 08/28/17 Supp] Psyllium [Metamucil] 1 packet PO HS packet 08/28/17 Klor-Con M20 (potassium chloride 20 meq PO TID #90 tab 09/02/17 ER) 20 mEq tablet,(part/cryst) Lasix (Furosemide) 40 mg tablet 40 mg PO QAM #30 tab 09/02/17 <Bj Melendez Q - 09/07/17 07:59> Allergies/Adverse reactions: Allergies Allergy/AdvReac Type Severity Reaction Status Date / Time ampicillin Allergy Intermediate RASH Verified 09/07/17 04:37 <Bj Melendez Q - 09/07/17 07:59> Review of Systems All systems: reviewed and negative except as stated [facility] :47> Psychiatric: Reports: as per HPI, depression, suicidal thoughts. Denies: anxiety, homicidal thoughts, auditory hallucinations, visual hallucinations < [facility] Patient Stated Medical History Glaucoma Yes Other HEENT Yes: WEARS GLASSES Cardiac Arrhythmia Yes Congestive Heart Failure Yes: CHRONIC DIASTOLIC Hypertension Yes Sleep Apnea Yes Other Respiratory Yes: Problem with diaphram Other GI Yes: Obesity, CONSTIPATION, POOR APPETITE Hx Benign Prostatic Yes Hyperplasia Hx Kidney Stones Yes Osteoarthritis Yes Depression Yes Other Behavioral Health Yes: difficulty sleeping Clinic Medical History (Last Reviewed 04/16/17 @ 14:36 by PIPE Saavedra) Hypoxia (Acute Medical) Congestive heart failure (Acute Medical) Hypokalemia (Acute Medical) MDD (major depressive disorder), recurrent severe, without psychosis (Acute Medical) Hypertension (Chronic Medical) Continue present medications. Dysthymia (Chronic Medical) Glaucoma (Chronic Medical) HTN (hypertension) (Chronic Medical) High triglycerides (Chronic Medical) Kidney stones (Chronic Medical) Lumbar disc disease (Chronic Medical) Obesity (Chronic Medical) Osteoarthritis of left hip (Chronic Medical) Dyspnea (Inactive Medical) <Bj Melendez Q - 09/07/17 07:59> Surgical History: L hip replacement. Cardiac catheterization 2017 (Dr. Hemphill) . ECHO 06/15/17. 1. Left atrial enlargement. 2. Borderline LVH with normal systolic function, EF of 55-60%. 3. Tachycardia and dysrhythmia is present. 4. Focal sclerosis and thickening of the noncoronary cusp of the aortic valve, without significant valvular dysfunction, no definite vegetation is seen, however there is clinical concern for endocarditis such as persistent unexplained fever or bacteremia. A transesophageal echocardiogram may be of further value. 5. No significant valvular dysfunction. 6. Inability to scan the patient in supine position due to patient needing to sit up during the test. This caused the study to be technically difficult, nevertheless diagnostic. 7. Mildly dilated aortic root, measured 4 cm. <March,[facility] 04/18 04:47> Family History: Family History (Last Reviewed 04/16/17 @ 14:36 by PIPE Saavedra) Father , 72 Myocardial infarct Mother , 59 Myocardial infarct <Bj Melendez Q - 09/07/17 07:59> - Social History Smoking status: Never smoker <March,[facility] 09/07/17 04:47> Current residence: Apartment/Private Home <March,[facility] 09/07/17 04:47> Physical Exam - Limitations Limitations: no limitations <March,[facility] 09/07/17 04:47> - General General appearance: alert, in no apparent distress, obese <[facility] 09/07 04:47> - Normal Exams: Head:: Normocephalic without trauma <March,[facility] 09/07/17 04:47> Eyes:: Pupils are PERRLA w/ EOMI, No scleral icterus, irritation, or foreign bodies noted <March,[facility] 09/07/17 04:47> ENMT:: No facial trauma, nasal exudates, pharyngeal erythema, or exudates are noted <March,[facility] 09/07/17 04:47> Neck:: Full range of motion, without adenopathy <[facility] 09/07/17 04:47> Chest/Respirations:: Clear all suarez, with good airflow <March,[facility] 04:47> Cardiovascular:: Regular rate and rhythm (Sinus tachycardia), without murmur or gallop, Pulses 2+ all extremities, capillary refill, <2 seconds all extremities <March,[facility] 09/07/17 04:47> Lymphatic:: No lymphadenopathy <March,[facility] 09/07/17 04:47> Musculoskeletal:: No tenderness, or deformity noted <March,[facility] 09/07/17 04 :47> Integumentary:: No rashes, hives, or bruising noted <March,[facility] 09/07/17 04 :47> Neurological:: Patient is alert, and oriented <March,[facility] 09/07/17 04:47> - Psychiatric Psychiatric exam: Present: depressed, flat affect <March,[facility] 09/07/17 04: 47> Course Vital Signs Temperature 98.7 F 09/07/17 04:22 Pulse Rate 120 H 09/07/17 04:22 Respiratory Rate 32 H 09/07/17 04:22 Blood Pressure 177/97 H 09/07/17 04:22 Pulse Oximetry 92 09/07/17 04:22 Temperature 98.7 F 09/07/17 04:22 Pulse Rate 109 H 09/07/17 05:45 Respiratory Rate 28 H 09/07/17 05:45 Blood Pressure 145/77 H 09/07/17 05:45 Pulse Oximetry 92 09/07/17 05:45 <Bj Melendez Q - 09/07/17 07:59> Vital Signs Temperature 98.7 F 09/07/17 04:22 Pulse Rate 120 H 09/07/17 04:22 Respiratory Rate 32 H 09/07/17 04:22 Blood Pressure 177/97 H 09/07/17 04:22 Pulse Oximetry 92 09/07/17 04:22 Temperature 98.7 F 09/07/17 04:22 Pulse Rate 109 H 09/07/17 05:45 Respiratory Rate 28 H 09/07/17 05:45 Blood Pressure 145/77 H 09/07/17 05:45 Pulse Oximetry 92 09/07/17 05:45 [facility] 05:46> Medical Clearance - MDM Narrative Medical decision making narrative: Screener for generations unit is here 07:32 Patient found to be appropriate for generations, they are arranging admission <Bj Melendez Q - 09/07/17 07:59> - Differential Diagnosis Differential Diagnosis Narrative: Depression, SI, HI, self-neglect <MarchJohnny - 09/07/17 04:47> - Medical Records Attestation: I reviewed the patient's medical records. <MarchJohnny - 04:47> - Lab Data Attestation: I reviewed the patient's lab results. <MarchJohnny - 09/07/17 04: 47> Result diagrams: 09/07/17 04:57 09/07/17 04:57 <Bj Melendez Q - 09/07/17 07:59> Lab Results 09/07/17 09/07/17 09/07/17 Range/Units 04:57 04:57 05:00 WBC 8.9 (4.5-11.0) T/MM3 RBC 4.92 (4.50-5.90) M/MM3 Hgb 15.6 (13.5-17.5) GM/DL Hct 45.6 (41-53) % MCV 92.7 (80-100) UM3 MCH 31.7 (26-34) UUG MCHC 34.2 (31-37) GM/DL RDW Std Deviation 42.6 (36.9-50.2) FL Plt Count 178 (130-400) T/MM3 MPV 9.2 L (9.4-12.4) UM3 Immature Gran % (Auto) 0.1 (0.0-0.5) % Neut % (Auto) 69.3 H (33-66) % Lymph % (Auto) 21.8 L (23-45) % [place] % (Auto) 7.4 (0-9.0) % Eos % (Auto) 0.8 (0-4) % Baso % (Auto) 0.6 (0-2) % Neut # (Auto) 6.2 (1.8-7.7) T/MM3 Lymph # (Auto) 2.0 (1-4.8) T/MM3 [place] # (Auto) 0.7 (0-0.8) T/MM3 Eos # (Auto) 0.1 (0-0.5) T/MM3 Baso # (Auto) 0.1 (0-0.2) T/MM3 Abs Immat Gran (auto) 0.01 (0.00-0.03) T/MM3 Turbidity < 20 (0-20) Sodium 145 H (134-144) MEQ/L Potassium 3.8 (3.6-5) MEQ/L Chloride 105 (98-107) MEQ/L Carbon Dioxide 26 (22-30) MEQ/L Anion Gap 14 (5-15) MEQ/L BUN 15.0 (9-20) MG/DL Creatinine 0.7 L (0.8-1.5) MG/DL GFR Calculation 111 BUN/Creatinine Ratio 21 (6-26) RATIO Glucose 99 (75-110) MG/DL Calculated Osmolality 280 (261-280) MOSM/KG Calcium 10.4 H (8.4-10.2) MG/DL Total Bilirubin 1.50 H (0.20-1.30) MG/DL Icterus Index < 2 (0-7) AST 22 (17-59) U/L ALT 41 (21-72) U/L Alkaline Phosphatase 50 (38-126) U/L Total Protein 8.1 (6.3-8.2) G/DL Albumin 4.6 (3.5-5.0) G/DL Globulin 3.5 (2.4-3.6) G/DL Albumin/Globulin Ratio 1.3 (1.1-2.2) RATIO TSH 1.63 (0.47-4.68) MIU/L Specimen Hemolysis < 15 (0-25) Ur Collection Type Urine, clean catch Urine Color Yellow (YELLOW) Urine Clarity Clear Urine pH 6.5 (5.0-8.0) Ur Specific [place] 1.015 (1.015-1.025) Urine Protein Negative (NEGATIVE) Urine Glucose (UA) Negative (NEGATIVE) Urine Ketones 1+ A (NEGATIVE) Urine Occult Blood 1+ A (NEGATIVE) Urine Nitrate Positive A (NEGATIVE) Urine Bilirubin Negative (NEGATIVE) Urine Urobilinogen 1.0 (NORMAL) EU/DL Ur Leukocyte Esterase 1+ A (NEGATIVE) Urine RBC None seen (0-3) /HPF Urine WBC 5-10 H (0-5) /HPF Amorphous Sediment Few Urine Bacteria None seen (NEGATIVE) Ur Culture Indicated? Cult reflexed &setup Salicylates < 1.0 L (2-20) MG/DL Urine Opiates Screen ng/mL Ur Oxycodone Screen ng/mL Urine Methadone Screen ng/mL Ur Propoxyphene Screen ng/mL Acetaminophen < 10 L (10-30) UG/ML Ur Barbiturates Screen ng/mL U Tricyclic Antidepress ng/mL Ur Phencyclidine Scrn ng/mL Ur Amphetamines Screen ng/mL U Methamphetamines Scrn ng/mL U Benzodiazepines Scrn ng/mL Urine Cocaine Screen ng/mL U Cannabinoids Screen ng/mL Alcohol, Quantitative <10 (<10) MG/DL 09/07/17 Range/Units 05:22 WBC (4.5-11.0) T/MM3 RBC (4.50-5.90) M/MM3 Hgb (13.5-17.5) GM/DL Hct (41-53) % MCV (80-100) UM3 MCH (26-34) UUG MCHC (31-37) GM/DL RDW Std Deviation (36.9-50.2) FL Plt Count (130-400) T/MM3 MPV (9.4-12.4) UM3 Immature Gran % (Auto) (0.0-0.5) % Neut % (Auto) (33-66) % Lymph % (Auto) (23-45) % [place] % (Auto) (0-9.0) % Eos % (Auto) (0-4) % Baso % (Auto) (0-2) % Neut # (Auto) (1.8-7.7) T/MM3 Lymph # (Auto) (1-4.8) T/MM3 [place] # (Auto) (0-0.8) T/MM3 Eos # (Auto) (0-0.5) T/MM3 Baso # (Auto) (0-0.2) T/MM3 Abs Immat Gran (auto) (0.00-0.03) T/MM3 Turbidity (0-20) Sodium (134-144) MEQ/L Potassium (3.6-5) MEQ/L Chloride (98-107) MEQ/L Carbon Dioxide (22-30) MEQ/L Anion Gap (5-15) MEQ/L BUN (9-20) MG/DL Creatinine (0.8-1.5) MG/DL GFR Calculation BUN/Creatinine Ratio (6-26) RATIO Glucose (75-110) MG/DL Calculated Osmolality (261-280) MOSM/KG Calcium (8.4-10.2) MG/DL Total Bilirubin (0.20-1.30) MG/DL Icterus Index (0-7) AST (17-59) U/L ALT (21-72) U/L Alkaline Phosphatase (38-126) U/L Total Protein (6.3-8.2) G/DL Albumin (3.5-5.0) G/DL Globulin (2.4-3.6) G/DL Albumin/Globulin Ratio (1.1-2.2) RATIO TSH (0.47-4.68) MIU/L Specimen Hemolysis (0-25) Ur Collection Type Urine Color (YELLOW) Urine Clarity Urine pH (5.0-8.0) Ur Specific [place] (1.015-1.025) Urine Protein (NEGATIVE) Urine Glucose (UA) (NEGATIVE) Urine Ketones (NEGATIVE) Urine Occult Blood (NEGATIVE) Urine Nitrate (NEGATIVE) Urine Bilirubin (NEGATIVE) Urine Urobilinogen (NORMAL) EU/DL Ur Leukocyte Esterase (NEGATIVE) Urine RBC (0-3) /HPF Urine WBC (0-5) /HPF Amorphous Sediment Urine Bacteria (NEGATIVE) Ur Culture Indicated? Salicylates (2-20) MG/DL Urine Opiates Screen Negative ng/mL Ur Oxycodone Screen Negative ng/mL Urine Methadone Screen Negative ng/mL Ur Propoxyphene Screen Negative ng/mL Acetaminophen (10-30) UG/ML Ur Barbiturates Screen Negative ng/mL U Tricyclic Antidepress Negative ng/mL Ur Phencyclidine Scrn Negative ng/mL Ur Amphetamines Screen Negative ng/mL U Methamphetamines Scrn Negative ng/mL U Benzodiazepines Scrn Negative ng/mL Urine Cocaine Screen Negative ng/mL U Cannabinoids Screen Negative ng/mL Alcohol, Quantitative (<10) MG/DL <Bj Melendez Q - 09/07/17 07:59> Lab Results 09/07/17 09/07/17 09/07/17 Range/Units 04:57 04:57 05:00 WBC 8.9 (4.5-11.0) T/MM3 RBC 4.92 (4.50-5.90) M/MM3 Hgb 15.6 (13.5-17.5) GM/DL Hct 45.6 (41-53) % MCV 92.7 (80-100) UM3 MCH 31.7 (26-34) UUG MCHC 34.2 (31-37) GM/DL RDW Std Deviation 42.6 (36.9-50.2) FL Plt Count 178 (130-400) T/MM3 MPV 9.2 L (9.4-12.4) UM3 Immature Gran % (Auto) 0.1 (0.0-0.5) % Neut % (Auto) 69.3 H (33-66) % Lymph % (Auto) 21.8 L (23-45) % [place] % (Auto) 7.4 (0-9.0) % Eos % (Auto) 0.8 (0-4) % Baso % (Auto) 0.6 (0-2) % Neut # (Auto) 6.2 (1.8-7.7) T/MM3 Lymph # (Auto) 2.0 (1-4.8) T/MM3 [place] # (Auto) 0.7 (0-0.8) T/MM3 Eos # (Auto) 0.1 (0-0.5) T/MM3 Baso # (Auto) 0.1 (0-0.2) T/MM3 Abs Immat Gran (auto) 0.01 (0.00-0.03) T/MM3 Turbidity < 20 (0-20) Sodium 145 H (134-144) MEQ/L Potassium 3.8 (3.6-5) MEQ/L Chloride 105 (98-107) MEQ/L Carbon Dioxide 26 (22-30) MEQ/L Anion Gap 14 (5-15) MEQ/L BUN 15.0 (9-20) MG/DL Creatinine 0.7 L (0.8-1.5) MG/DL GFR Calculation 111 BUN/Creatinine Ratio 21 (6-26) RATIO Glucose 99 (75-110) MG/DL Calculated Osmolality 280 (261-280) MOSM/KG Calcium 10.4 H (8.4-10.2) MG/DL Total Bilirubin 1.50 H (0.20-1.30) MG/DL Icterus Index < 2 (0-7) AST 22 (17-59) U/L ALT 41 (21-72) U/L Alkaline Phosphatase 50 (38-126) U/L Total Protein 8.1 (6.3-8.2) G/DL Albumin 4.6 (3.5-5.0) G/DL Globulin 3.5 (2.4-3.6) G/DL Albumin/Globulin Ratio 1.3 (1.1-2.2) RATIO TSH 1.63 (0.47-4.68) MIU/L Specimen Hemolysis < 15 (0-25) Ur Collection Type Urine, clean catch Urine Color Yellow (YELLOW) Urine Clarity Clear Urine pH 6.5 (5.0-8.0) Ur Specific [place] 1.015 (1.015-1.025) Urine Protein Negative (NEGATIVE) Urine Glucose (UA) Negative (NEGATIVE) Urine Ketones 1+ A (NEGATIVE) Urine Occult Blood 1+ A (NEGATIVE) Urine Nitrate Positive A (NEGATIVE) Urine Bilirubin Negative (NEGATIVE) Urine Urobilinogen 1.0 (NORMAL) EU/DL Ur Leukocyte Esterase 1+ A (NEGATIVE) Urine RBC None seen (0-3) /HPF Urine WBC 5-10 H (0-5) /HPF Amorphous Sediment Few Urine Bacteria None seen (NEGATIVE) Ur Culture Indicated? Cult reflexed &setup Salicylates < 1.0 L (2-20) MG/DL Urine Opiates Screen ng/mL Ur Oxycodone Screen ng/mL Urine Methadone Screen ng/mL Ur Propoxyphene Screen ng/mL Acetaminophen < 10 L (10-30) UG/ML Ur Barbiturates Screen ng/mL U Tricyclic Antidepress ng/mL Ur Phencyclidine Scrn ng/mL Ur Amphetamines Screen ng/mL U Methamphetamines Scrn ng/mL U Benzodiazepines Scrn ng/mL Urine Cocaine Screen ng/mL U Cannabinoids Screen ng/mL Alcohol, Quantitative <10 (<10) MG/DL 09/07/17 Range/Units 05:22 WBC (4.5-11.0) T/MM3 RBC (4.50-5.90) M/MM3 Hgb (13.5-17.5) GM/DL Hct (41-53) % MCV (80-100) UM3 MCH (26-34) UUG MCHC (31-37) GM/DL RDW Std Deviation (36.9-50.2) FL Plt Count (130-400) T/MM3 MPV (9.4-12.4) UM3 Immature Gran % (Auto) (0.0-0.5) % Neut % (Auto) (33-66) % Lymph % (Auto) (23-45) % [place] % (Auto) (0-9.0) % Eos % (Auto) (0-4) % Baso % (Auto) (0-2) % Neut # (Auto) (1.8-7.7) T/MM3 Lymph # (Auto) (1-4.8) T/MM3 [place] # (Auto) (0-0.8) T/MM3 Eos # (Auto) (0-0.5) T/MM3 Baso # (Auto) (0-0.2) T/MM3 Abs Immat Gran (auto) (0.00-0.03) T/MM3 Turbidity (0-20) Sodium (134-144) MEQ/L Potassium (3.6-5) MEQ/L Chloride (98-107) MEQ/L Carbon Dioxide (22-30) MEQ/L Anion Gap (5-15) MEQ/L BUN (9-20) MG/DL Creatinine (0.8-1.5) MG/DL GFR Calculation BUN/Creatinine Ratio (6-26) RATIO Glucose (75-110) MG/DL Calculated Osmolality (261-280) MOSM/KG Calcium (8.4-10.2) MG/DL Total Bilirubin (0.20-1.30) MG/DL Icterus Index (0-7) AST (17-59) U/L ALT (21-72) U/L Alkaline Phosphatase (38-126) U/L Total Protein (6.3-8.2) G/DL Albumin (3.5-5.0) G/DL Globulin (2.4-3.6) G/DL Albumin/Globulin Ratio (1.1-2.2) RATIO TSH (0.47-4.68) MIU/L Specimen Hemolysis (0-25) Ur Collection Type Urine Color (YELLOW) Urine Clarity Urine pH (5.0-8.0) Ur Specific [place] (1.015-1.025) Urine Protein (NEGATIVE) Urine Glucose (UA) (NEGATIVE) Urine Ketones (NEGATIVE) Urine Occult Blood (NEGATIVE) Urine Nitrate (NEGATIVE) Urine Bilirubin (NEGATIVE) Urine Urobilinogen (NORMAL) EU/DL Ur Leukocyte Esterase (NEGATIVE) Urine RBC (0-3) /HPF Urine WBC (0-5) /HPF Amorphous Sediment Urine Bacteria (NEGATIVE) Ur Culture Indicated? Salicylates (2-20) MG/DL Urine Opiates Screen Negative ng/mL Ur Oxycodone Screen Negative ng/mL Urine Methadone Screen Negative ng/mL Ur Propoxyphene Screen Negative ng/mL Acetaminophen (10-30) UG/ML Ur Barbiturates Screen Negative ng/mL U Tricyclic Antidepress Negative ng/mL Ur Phencyclidine Scrn Negative ng/mL Ur Amphetamines Screen Negative ng/mL U Methamphetamines Scrn Negative ng/mL U Benzodiazepines Scrn Negative ng/mL Urine Cocaine Screen Negative ng/mL U Cannabinoids Screen Negative ng/mL Alcohol, Quantitative (<10) MG/DL <eb 09/07/17 05:46> - Radiology Data Attestation: I reviewed the patient's radiology results. < 04:47> Stable chest. No acute CT pathology. <eb 09/07/17 05:46> - EKG Data EKG #1 EKG attestation: Yes: I reviewed and interpreted this EKG. <04/18 05:46> EKG shows normal: sinus rhythm, ST-T waves <eb 09/07/17 05:46> Rate: tachycardia <eb 09/07/17 05:46> Rhythm: PVC's <March,Johnny 09/07/17 05:46> [place]/QRS: left axis deviation <eb 09/07/17 05:46> Heart block present: 1st Degree <09/07/17 05:46> Disposition Clinical Impression: Depression Qualifiers: Depression Type: unspecified Qualified Code(s): F32.9 - Major depressive disorder, single episode, unspecified <Bj Melendez Q - 09/07/17 07:59> Disposition: 66 To [facility] <Bj Melendez 09/07/17 07:59> Condition: Stable <Bj Melendez Q - 09/07/17 07:59> Prescriptions: No Action Gabapentin 900 mg PO PM Gabapentin 600 mg PO AM Fenofibrate Nanocrystallized [Fenofibrate] 145 mg PO DAILY Zolpidem [Ambien] 10 mg PO HS Dorzolamide HCl/Timolol Maleat [Cosopt Eye Drops] 1 drop EACH EYE BID Escitalopram [Lexapro] 20 mg PO DAILY #30 tab Trazodone [Desyrel] 50 mg PO HS #30 tab Tamsulosin [Flomax] 0.4 mg PO HS Metoprolol Succinate (XL) [Toprol Xl] 50 mg PO HS Bimatoprost [Lumigan] 1 drops EACH EYE HS Hydrocortisone SUPP [Anusol-Hc Supp] 25 mg WA BID PRN 7 Days supp PRN Reason: Hemorrhoids Psyllium [Metamucil] 1 packet PO HS packet Lasix (Furosemide) 40 mg tablet 40 mg PO QAM #30 tab Klor-Con M20 (potassium chloride ER) 20 mEq tablet,(part/cryst) 20 meq PO TID #90 tab <Bj Melendez Q - 09/07/17 07:59> Referrals: Frank Bajwa MD [Family Provider] - <Bj Melendez - 09/07 07:59> Time of Disposition: 07:58 <Bj Melendez - 09/07/17 07:59> - Seen By: physician <Bj Melendez - 09/07/17 07:59>
[2017-09-07] MEDS: SALINE FLUSH 10ml SYRINGE IVF PRN ×3 (05:00→20:41)
[2017-09-07] MEDS ORDERED: LABETALOL 100mg/20ml INJECTION IVP ONE (06:39)
--- NOTE | 2017-09-07 06:45 | XRay Report ---
EXAM: XR chest 1V LOCATION OF DICTATION: [facility] HISTORY: clearance COMPARISON: No prior studies available for comparison. FINDINGS: The heart size is upper limits normal. The mediastinal configuration is within normal limits. There are no consolidating opacities or pleural effusions. There is no pneumothorax. The osseous structures are within normal limits for the patient's age. IMPRESSION: Upper limits normal heart size without CHF or pneumonia. Bibasillar atelectasis/scarring suggested. .
[2017-09-07] MEDS ORDERED: CEFTRIAXONE (ER USE ONLY) 1 GM in NS 100 ML IV ONE (10:49)
[2017-09-07] MEDS ORDERED: LORazepam 0.5 MG TABLET PO PRN (11:31)
[2017-09-07] MEDS ORDERED: HALOPERIDOL 5 MG/ML INJECTION IM PRN (11:31)
[2017-09-07] MEDS ORDERED: HALOPERIDOL 0.5 MG TABLET PO PRN (11:31)
--- NOTE | 2017-09-07 13:53 | History & Physical Report ---
<Anitra Hood - Last Filed: 09/07/17 14:06> History of Present Illness Date: 09/07/17 HPI: Paolo Bush is a 71 y/o male with a hx of depression; was actually recently hosp in [facility] for depression and was dc'd home on 08/28/17 with new Rx for Lexapro, trazodone, and zolpidem. RAINE is not entirely forthcoming with HPI and elects not to share why he was admitted to [facility] again - he did become momentarily tearful and avoided eye contact. Per review of records and from verbal report, he has indicated that he wants to end it all and has not been adequately caring for himself (not eating/drinking/keeping clean) or taking Rx medications. Labs done in the ED showed mild hypernatremia and mild hyperbilirubinemia. He received Rocephin 1 gm IV for UTI. ED MD also ordered NS 1L for hydration. RAINE states that he feels short of breath often (which he attributes to being "out of shape") but denies dizziness, syncope, chest pain, or palpitations. He admits to feeling slightly weak from not eating/drinking well over the last few days. He denies any falls/injuries. No fever/chills, cough/congestion. He denied abdominal pain, n/v/d/c. He denies leg swelling or rash. Review of Systems All systems PM: 10-point ROS was reviewed, no additional remarkable complaints except - Constitutional Constitutional: Absent: chills, fever(s) - EENMT Eyes: Absent: change in vision Nose: Absent: obstruction Mouth/Throat: Absent: sore throat, changes in swallowing - Cardiovascular Cardiovascular: Present: dyspnea on exertion. Absent: chest pain Vascular: Absent: pedal edema - Respiratory Respiratory: Present: dyspnea. Absent: cough - Gastrointestinal Gastrointestinal: Absent: abdominal pain, constipation, diarrhea, nausea, vomiting - Genitourinary Genitourinary: Present: urinary frequency. Absent: difficulty urinating, dysuria, urinary urgency - Musculoskeletal Musculoskeletal: Present: muscle weakness (mild) - Integumentary/Breasts Integumentary: Present: alopecia - Neurological Neurological: Present: abnormal gait (uses walker), weakness. Absent: confusion , dizziness - Psychiatric Psychiatric: Present: depression, suicidal ideation - Endocrine Endocrine: Absent: palpitations - Hematologic/Lymphatic Hematologic/Lymphatic: Absent: easy bleeding - Allergic/Immunologic Allergic/Immunologic: Absent: lip swelling PFSH Chronic diastolic CHF Depression Glaucoma HTN Hypertriglyceridemia Kidney stones Lumbar disc disease Obesity, BMI 35.6 Peripheral neuropathy Surgical History: Left hip replacement. Cardiac catheterization 2017 (Dr. Hemphill). ECHO 06/15/17. 1. Left atrial enlargement. 2. Borderline LVH with normal systolic function, EF of 55-60%. 3. Tachycardia and dysrhythmia is present. 4. Focal sclerosis and thickening of the noncoronary cusp of the aortic valve, without significant valvular dysfunction, no definite vegetation is seen, however there is clinical concern for endocarditis such as persistent unexplained fever or bacteremia. A transesophageal echocardiogram may be of further value. 5. No significant valvular dysfunction. 6. Inability to scan the patient in supine position due to patient needing to sit up during the test. This caused the study to be technically difficult, nevertheless diagnostic. 7. Mildly dilated aortic root, measured 4 cm. Family History: Father , 72 - Myocardial infarct Mother , 59 - Myocardial infarct - Social History Smoking status: Never smoker Substance use type: does not use Alcohol intake frequency: former alcohol drinker Social history: PCP _ Dr. Bajwa Medications Home Medications Medication Instructions Recorded Confirmed Type Fenofibrate Nanocrystallized 145 mg PO DAILY 07/11/17 09/07/17 History [Fenofibrate] Gabapentin 600 mg PO QAM 07/11/17 09/07/17 History Gabapentin 900 mg PO PM 07/11/17 09/07/17 History Metoprolol Succinate (XL) [Toprol 50 mg PO HS 08/19/17 09/07/17 History Xl] Tamsulosin [Flomax] 0.4 mg PO HS 08/19/17 09/07/17 History Zolpidem [Ambien] 10 mg PO HS 08/19/17 09/07/17 History Bimatoprost [Lumigan] 1 drops EACH EYE HS 08/26/17 09/07/17 History Dorzolamide HCl/Timolol Maleat 1 drop EACH EYE BID 08/26/17 09/07/17 History [Cosopt Eye Drops] Furosemide [Lasix] 40 mg PO QAM 09/07/17 09/07/17 History Potassium Chloride [Klor-Con M20] 20 meq PO TID 09/07/17 09/07/17 History Allergies Allergy/AdvReac Type Severity Reaction Status Date / Time ampicillin Allergy Intermediate RASH Verified 09/07/17 04:37 Exam Vital Signs: Temperature 98.3 F 09/07/17 12:05 Pulse Rate 95 09/07/17 12:05 Respiratory Rate 22 09/07/17 12:05 Blood Pressure 148/79 H 09/07/17 12:05 Pulse Oximetry 96 09/07/17 12:05 - Constitutional Present: no acute distress, well nourished, well developed, obese - Routine HEENT Exam Head: Present: normocephalic Eye: Present: PERRL. Absent: conjunctival icterus, scleral injection ENT: Present: mucous membranes moist, oropharynx clear - Routine Neck Exam Present: supple - Routine Respiratory Exam Present: CTA bilaterally, diminished air movement (bases) - Routine Cardiovascular Exam Present: RRR, S1, S2 - Routine Abdominal Exam Present: soft, normoactive bowel sounds, non distended, non tender - Routine Extremities Exam Present: no edema, pulses intact - Routine Back/Spine/Pelvis Exam Back/Spine: Present: full ROM - Routine Skin Exam Present: intact, dry, warm - Routine Neurological Exam Present: alert, oriented X3, normal speech. Absent: facial asymmetry - Routine Psychiatric Exam Present: cooperative. Absent: normal affect (depressed, tearful) Results - Labs CBC & Chem 7: 09/07/17 04:57 09/07/17 04:57 Assessment and Plan (1) MDD (major depressive disorder), recurrent severe, without psychosis Current visit: No Status: Acute Assessment and Plan: IMPRESSION UTI Hyperbilirubinemia Depression Hypernatremia Chronic diastolic CHF Glaucoma HTN High triglycerides Lumbar disc disease Peripheral neuropathy PLAN Agree with admission to [facility]. Hospitalist service covering for Dr. Bajwa. GJ c/o urinary frequency; UA showed nitrates and WBC - will culture. Received Rocephin in the ED; will continue this until culture comes back. Hypernatremia, poor oral intake - ask nurses to push oral fluids. Repeat BMP in am. Diuretics were held at time of last DC but he still required KDur 20 mEq BID to maintain stable potassium level. Elevated total bili with normal values of other LFTs. Monitor. Hgb A1c was checked in Oct (5%) & TSH was normal (1.63) at that time. CXR on admit was neg for CHF/pneumonia/acute findings (mild atelectasis in bases). Of note, had bright red heme positive rectal bleeding during last hospitalization and fish oil and ASA were discontinued - hgb on admit was 15. Depression tx per attending. Thanks for this consult - we will follow Mr. Bush during his [facility] stay. Resuscitation Status: Full Code Hospital Course Summary Disclaimer: The visit summary below is not to be considered part of the above Progress Note. Hospital Course: 09/07/17 IMPRESSION UTI Hyperbilirubinemia Depression Hypernatremia Chronic diastolic CHF Glaucoma HTN High triglycerides Lumbar disc disease Peripheral neuropathy PLAN Agree with admission to [facility]. Hospitalist service covering for Dr. Bajwa. GJ c/o urinary frequency; UA showed nitrates and WBC - will culture. Received Rocephin in the ED; will continue this until culture comes back. Hypernatremia, poor oral intake - ask nurses to push oral fluids. Repeat BMP in am. Diuretics were held at time of last DC but he still required KDur 20 mEq BID to maintain stable potassium level. Elevated total bili with normal values of other LFTs. Monitor. Hgb A1c was checked in Oct (5%) & TSH was normal (1.63) at that time. CXR on admit was neg for CHF/pneumonia/acute findings (mild atelectasis in bases). Of note, had bright red heme positive rectal bleeding during last hospitalization and fish oil and ASA were discontinued - hgb on admit was 15. Depression tx per attending. Thanks for this consult - we will follow Mr. Bush during his [facility] stay. <Ismael Castañeda - Last Filed: 09/07/17 17:22> History of Present Illness Date: 09/07/17 [facility] Patient Stated Medical History Glaucoma Yes Other HEENT Yes: WEARS GLASSES Cardiac Arrhythmia Yes Congestive Heart Failure Yes: CHRONIC DIASTOLIC Hypertension Yes Sleep Apnea Yes Other Respiratory Yes: Problem with diaphram Other GI Yes: Obesity, CONSTIPATION, POOR APPETITE Hx Benign Prostatic Yes Hyperplasia Hx Kidney Stones Yes Osteoarthritis Yes Depression Yes Clinic Medical History (Last Reviewed 04/16/17 @ 14:36 by PIPE Saavedra) Hypoxia (Acute Medical) Congestive heart failure (Acute Medical) Hypokalemia (Acute Medical) MDD (major depressive disorder), recurrent severe, without psychosis (Acute Medical) Depression (Acute Medical) Hypertension (Chronic Medical) Continue present medications. Dysthymia (Chronic Medical) Glaucoma (Chronic Medical) HTN (hypertension) (Chronic Medical) High triglycerides (Chronic Medical) Kidney stones (Chronic Medical) Lumbar disc disease (Chronic Medical) Obesity (Chronic Medical) Osteoarthritis of left hip (Chronic Medical) Dyspnea (Inactive Medical) Family History: Family History (Last Reviewed 04/16/17 @ 14:36 by PIPE Saavedra) Father , 72 Myocardial infarct Mother , 59 Myocardial infarct Exam Vital Signs: Temperature 97.9 F 09/07/17 16:40 Pulse Rate 109 H 09/07/17 16:40 Respiratory Rate 16 09/07/17 16:40 Blood Pressure 148/75 H 09/07/17 16:40 Pulse Oximetry 95 09/07/17 16:40 Results - Labs CBC & Chem 7: 09/07/17 04:57 09/07/17 04:57 Assessment and Plan (1) MDD (major depressive disorder), recurrent severe, without psychosis Current visit: No Status: Acute Assessment and Plan: IMPRESSION UTI (POA) Hyperbilirubinemia Depression Hypernatremia (POA) Chronic diastolic CHF Glaucoma HTN High triglycerides Lumbar disc disease Peripheral neuropathy Obesity with BMI 35.6 Have independently interviewed and examined pt. Chart reviewed. Case discussed with my ORDER RUNNER. Above care plan developed with my supervision; agree with above. Doing fair. Breathing stable-not having increase congestion, cough or pain with breathing. No chest pain or discomfort. Appetite fair. No nausea or ab pain. Lungs: decreased, no distress CV: regular MSE: awake alert appropriate Plan: Agree with admission on pt to [facility] for geropsychiatric evaluation and treatment. Rocephin for urinary coverage, check UA. Encourage oral intake of foods/liquids. Monitor volume status and BP due to his diastolic heart failure. Psychiatry will manage and adjust patient's psychoactive medications. Medically stable for [facility] floor activities. Hospital Course Summary Disclaimer: The visit summary below is not to be considered part of the above Progress Note.
[2017-09-07] MEDS ORDERED: Hydrocortisone 25 MG SUPP PR PRN (15:45)
--- NOTE | 2017-09-07 19:37 | 24 Hour Neuropsychiatic Eval ---
Date of Admission: 09/07/17 11:29 Chief complaint: SI with plan History of Present Illness: Patient is a 71-year-old single, retired male who was admitted to [facility] on 09/07/17 due to depression and SI with plan to by not eating/ drinking or taking Rx meds. Patient was recently hospitalized at [facility] as well and started on Lexapro, trazodone and zolpidem. Patient is fully oriented on interview and cooperative but seemed to be guarded out of shame - endorsed decreased energy, anhedonia, amotivation, feelings of excessive guilt and worthlessness. Only family is niece and patient admits to feeling lonely - would be interested in AL facility if possible. Patient received 1L NS upon admission. Patient denies HI, AVH, symptoms consistent with gudelia. Depression: Increased Anxiety, Loss of Interest in Activities, Isolating Oneself From Friends and Family, Increased Fatigue, Loss of Energy, Insomnia, Difficulty Sleeping (without medication), Feelings of Worthlessness, Feelings of Guilt, Recurrent Thoughts of or Suicide, Hopelessness, Unhappiness, Low Self Esteem Anxiety: Dyspnea, Extremity Numbness/Tingling PFSH Patient Stated Medical History Glaucoma Yes Other HEENT Yes: WEARS GLASSES Cardiac Arrhythmia Yes Congestive Heart Failure Yes: CHRONIC DIASTOLIC Hypertension Yes Sleep Apnea Yes Other Respiratory Yes: Problem with diaphram Other GI Yes: Obesity, CONSTIPATION, POOR APPETITE Hx Benign Prostatic Yes Hyperplasia Hx Kidney Stones Yes Osteoarthritis Yes Depression Yes Clinic Medical History (Last Reviewed 04/16/17 @ 14:36 by PIPE Saavedra) Hypoxia (Acute Medical) Congestive heart failure (Acute Medical) Hypokalemia (Acute Medical) MDD (major depressive disorder), recurrent severe, without psychosis (Acute Medical) Depression (Acute Medical) Hypertension (Chronic Medical) Continue present medications. Dysthymia (Chronic Medical) Glaucoma (Chronic Medical) HTN (hypertension) (Chronic Medical) High triglycerides (Chronic Medical) Kidney stones (Chronic Medical) Lumbar disc disease (Chronic Medical) Obesity (Chronic Medical) Osteoarthritis of left hip (Chronic Medical) Dyspnea (Inactive Medical) Surgical History: Left hip replacement. Cardiac catheterization 2017 (Dr. Hemphill). ECHO 06/15/17. 1. Left atrial enlargement. 2. Borderline LVH with normal systolic function, EF of 55-60%. 3. Tachycardia and dysrhythmia is present. 4. Focal sclerosis and thickening of the noncoronary cusp of the aortic valve, without significant valvular dysfunction, no definite vegetation is seen, however there is clinical concern for endocarditis such as persistent unexplained fever or bacteremia. A transesophageal echocardiogram may be of further value. 5. No significant valvular dysfunction. 6. Inability to scan the patient in supine position due to patient needing to sit up during the test. This caused the study to be technically difficult, nevertheless diagnostic. 7. Mildly dilated aortic root, measured 4 cm. 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 Absent: increased appetite, weight gain, weight loss - EENMT Nose: Absent: obstruction Mouth/Throat: Absent: sore throat, changes in swallowing - Cardiovascular Vascular: Absent: pedal edema - Respiratory Respiratory: Present: dyspnea (intermittent) - Gastrointestinal Gastrointestinal: Present: constipation (intermittent) - Genitourinary Genitourinary: Present: urinary frequency. Absent: difficulty urinating, dysuria, urinary urgency - Neurological Neurological: Present: paresthesias (in hands and feet x 4 months) Neurological Comments: No hx of seizures - Psychiatric Psychiatric: Present: abnormal sleep pattern, anhedonia, anxiety, depression, hopelessness, suicidal ideation. Absent: auditory hallucinations, hallucinations, homicidal ideation, paranoia, visual hallucinations Mental Status Exam Vitals: Last Vital Signs Temp 97.9 F 09/07/17 16:40 Pulse 109 H 09/07/17 16:40 Resp 16 09/07/17 16:40 BP 148/75 H 09/07/17 16:40 Pulse Ox 95 09/07/17 16:40 Height: 1.73 m Weight: 106.3 kg - Mental Status Exam Muscle Strength/Tone: Normal Dressing: Casual Grooming: Fair Attitude: Guarded (out of embarrassment) Motor Activity: Retardation Eye Contact: Poor Speech: Slowed Volume: Soft Rhythm: Appropriate Rhythm Orientation: Oriented X4 Mood: Depressed, Anxious Affect: Depressed Rate of Thoughts: Delayed Thought Organization: Organized Associations: Intact Abstract Reasoning: Poor abstract reasoning Thought Content: Ruminations, Hopelessness, Helplessness, Worthlessness Perception/Psychotic: Perception Normal Language: Naming Intact Fund of Knowledge: Gabriel aware current events Memory: Grossly Intact Suicidal Ideation: Plan, Intent Homicidal Ideation: Denies Insight: Impaired Judgement: Impaired Impulse Control: Fair - Laboratory Result Diagrams: 09/07/17 04:57 09/07/17 04:57 Assessment and Plan (1) MDD (major depressive disorder), recurrent severe, without psychosis Current visit: No Status: Acute (2) Hypoxia Current visit: No Status: Acute (3) Congestive heart failure Qualifiers: Congestive heart failure type: unspecified congestive heart failure type Congestive heart failure chronicity: chronic Qualified Code(s): I50.9 - Heart failure, unspecified Current visit: No Status: Acute (4) Hypertension Problem details: Continue present medications. Current visit: No Status: Chronic Will evaluate and stabilize. Maintain safety and elopement precautions. Review previous medical record, obtain further collateral from niece. Will order and review following labs: CBC, CMP, TSH, B12, folate, UA Will discuss options for placement to increase socialization Continued home meds for the time being other than Ambien Monitor mood, behavior and response to treatment
[2017-09-07] MEDS: DORZOLAMIDE EACH EYE SCH (20:11)
[2017-09-07] MEDS: TIMOLOL EYE EACH EYE SCH (20:11)
[2017-09-07] MEDS: BIMATOPROST 0.01% EACH EYE SCH (20:11)
[2017-09-07] MEDS: EYE EACH EYE SCH (20:11)
[2017-09-07] MEDS: TAMSULOSIN 0.4 MG CAPSULE PO SCH (20:12)
[2017-09-07] MEDS: TRAZODONE 50 MG TABLET PO SCH (20:12)
[2017-09-07] MEDS: PSYLLIUM PACKET PO SCH (20:12)
[2017-09-07] MEDS: GABAPENTIN 300 MG CAPSULE PO SCH (20:12)
[2017-09-08 05:02] VITALS: BMI 38.1
[2017-09-08] MEDS: TIMOLOL EYE EACH EYE SCH ×2 (08:19→20:46)
[2017-09-08] MEDS: DORZOLAMIDE EACH EYE SCH ×2 (08:19→20:46)
[2017-09-08] MEDS: ESCITALOPRAM 20 MG TABLET PO SCH (08:20)
[2017-09-08] MEDS: FUROSEMIDE 40 MG TABLET PO SCH (08:20)
[2017-09-08] MEDS: FENOFIBRATE 145 MG TABLET PO SCH (08:20)
[2017-09-08] MEDS: GABAPENTIN 600 MG TABLET PO SCH (08:21)
--- NOTE | 2017-09-08 08:57 | Progress Note ---
<Sierra Canchola - Last Filed: 09/08/17 08:53> - Date 09/08/17 Subjective: GJ is seen today in follow up for he acute UTI and severe depression with recent SI. He is seen in the day room, sitting in a recliner, having just finished breakfast. He reports that he is feeling anxious and complains of chronic tingling and numbness in his feet and hands bilaterally. He denies any other physical complaints including no chest pain, shortness of breath, abdominal pain, nausea, vomiting or dysuria. He admits to occasionally feeling short of breath when he is very anxious but denies shortness of breath on exam. He states that his appetite is good and his bowels are moving. Vital signs are stable and he remains afebrile. Objective Vital signs: Temperature 98.4 F 09/07/17 23:15 Pulse Rate 98 09/07/17 23:15 Respiratory Rate 20 09/08/17 04:45 Blood Pressure 131/67 09/07/17 23:15 Pulse Oximetry 96 09/07/17 23:15 Height/Weight/BMI: Height 5 ft 8 in Weight 250 lb 14.177 oz Body Mass Index 38.1 Comments: Patient is seen while sitting in the recliner in the day room and appears anxious. He is closely watching the nurse preparing the morning medications and states that he is "waiting" for his medications. - Constitutional Present: mild distress (anxious), well nourished, well developed, obese, cooperative - Routine HEENT Exam Head: Present: normocephalic, atraumatic Eye: Present: PERRL. Absent: conjunctival icterus ENT: Present: mucous membranes moist, dentition normal - Routine Respiratory Exam Present: CTA bilaterally. Absent: rhonchi, stridor, wheezes, crackles Comments: tachypnea initially, but improves as the patient is encouraged to take slow, deep breaths. - Routine Cardiovascular Exam Present: RRR, S1, S2, tachycardia Comments: patient appears anxious - 98 bpm. - Routine Abdominal Exam Present: soft, normoactive bowel sounds, non tender - Routine Extremities Exam Present: edema (trace), pulses intact - Routine Back/Spine/Pelvis Exam Back/Spine: Present: full ROM. Absent: vertebral tenderness - Routine Musculoskeletal Exam Musculoskeletal: Present: no clubbing or cyanosis, moving extremities well - Routine Skin Exam Present: intact, dry, warm. Absent: jaundice Comments: afebrile. - Routine Neurological Exam Present: alert, oriented X3, CN II-XII intact, moving all extremities, normal speech. Absent: facial asymmetry - Routine Lymphatic Exam Lymphatic: Absent: lymphedema - Routine Psychiatric Exam Present: cooperative. Absent: suicidal ideation, homicidal ideation Comments: flat affect, anxious. Results - Labs CBC & Chem 7: 09/07/17 04:57 09/08/17 04:51 Assessment and Plan (1) MDD (major depressive disorder), recurrent severe, without psychosis Current visit: No Status: Acute Assessment and Plan: IMPRESSION UTI (POA) Hyperbilirubinemia Depression Hypernatremia (POA) Chronic diastolic CHF Glaucoma HTN High triglycerides Lumbar disc disease Peripheral neuropathy Obesity with BMI 35.6 Plan-09/08/17: GJ is fairly anxious on exam and eagerly awaiting morning medications. Denies SI/HI on exam. Continue psychiatric care per Dr. Ramírez and team. Continue to provide safe and supportive environment. Patient is safe for floor activities. Review of admission labs revealed hypernatremia (Na 145) - continue to encourage patient to increase oral intake. Will recheck BMP in AM to monitor electrolytes and renal function. UA revealed 5-10 WBC with early growth noted on culture. Review of prior urine culture from 08/19/17 revealed coag negative staph which was multi drug resistant. Will discontinue Rocephin and initiate macrobid 100mg BID x 7 days given prior resistance patterns while awaiting sensitivities on recent UA. GFR 111. Monitor renal function periodically throughout admission. Continue to monitor volume status and BP due to his diastolic heart failure. Check daily weights for trending up. Recheck CBC and BMP in AM to monitor blood counts, electrolytes and renal function. Patient remains afebrile. Resuscitation Status: Full Code - Time spent with patient Time with patient PN: 35 minutes Hospital Course Summary Disclaimer: The visit summary below is not to be considered part of the above Progress Note. Hospital Course: 09/07/17 IMPRESSION UTI Hyperbilirubinemia Depression Hypernatremia Chronic diastolic CHF Glaucoma HTN High triglycerides Lumbar disc disease Peripheral neuropathy PLAN Agree with admission to [facility]. Hospitalist service covering for Dr. Bajwa. GJ c/o urinary frequency; UA showed nitrates and WBC - will culture. Received Rocephin in the ED; will continue this until culture comes back. Hypernatremia, poor oral intake - ask nurses to push oral fluids. Repeat BMP in am. Diuretics were held at time of last DC but he still required KDur 20 mEq BID to maintain stable potassium level. Elevated total bili with normal values of other LFTs. Monitor. Hgb A1c was checked in Oct (5%) & TSH was normal (1.63) at that time. CXR on admit was neg for CHF/pneumonia/acute findings (mild atelectasis in bases). Of note, had bright red heme positive rectal bleeding during last hospitalization and fish oil and ASA were discontinued - hgb on admit was 15. Depression tx per attending. Thanks for this consult - we will follow Mr. Bush during his [facility] stay. Plan-09/08/17: GJ is fairly anxious on exam and eagerly awaiting morning medications. Denies SI/HI on exam. Continue psychiatric care per Dr. Ramírez and team. Continue to provide safe and supportive environment. Patient is safe for floor activities. Review of admission labs revealed hypernatremia (Na 145) - continue to encourage patient to increase oral intake. Will recheck BMP in AM to monitor electrolytes and renal function. UA revealed 5-10 WBC with early growth noted on culture. Review of prior urine culture from 08/19/17 revealed coag negative staph which was multi drug resistant. Will discontinue Rocephin and initiate macrobid 100mg BID x 7 days given prior resistance patterns while awaiting sensitivities on recent UA. GFR 111. Monitor renal function periodically throughout admission. Continue to monitor volume status and BP due to his diastolic heart failure. Check daily weights for trending up. Recheck CBC and BMP in AM to monitor blood counts, electrolytes and renal function. Patient remains afebrile. <Fe Stoddard - Last Filed: 09/08/17 21:17> - Date 09/08/17 Objective Vital signs: Temperature 97.5 F 09/08/17 16:00 Pulse Rate 81 09/08/17 16:00 Respiratory Rate 16 09/08/17 16:00 Blood Pressure 116/65 09/08/17 16:00 Pulse Oximetry 95 09/08/17 16:00 Height/Weight/BMI: Height 1.73 m Weight 113.8 kg Body Mass Index 38.1 Results - Labs CBC & Chem 7: 09/07/17 04:57 09/08/17 04:51 Assessment and Plan (1) MDD (major depressive disorder), recurrent severe, without psychosis Current visit: No Status: Acute Assessment and Plan: I have independently evaluated and examined this patient. I reviewed the chart, the patient's history, and the [employer]/PA's documented findings as above. We discussed and formulated the assessment and plan as above with additions as below: Mr. Bush describes variable dyspnea-although description is vague. He reports urinary frequency prior to hospitalization which has improved since he was admitted but denies suprapubic discomfort or dysuria now or prior to admission. He denies having fever. His primary concern is difficulty sleeping. Patient is alert but affect is flat. Respirations are nonlabored with good airflow, breath sounds are clear Cardiac rhythm regular Abdomen is soft, obese, nontender, and there is no suprapubic tenderness present. UA and preliminary results of UC noted. I was initially inclined not to treat pyuria however patient does describe urinary frequency prior to admission and initiation of antibiotics. Presence of pyuria in men is atypical and given reported improvement since antibiotics initiated will continue antibiotics as described above pending identification of organism/sensitivities. If recurrent bacteriuria present may require outpatient urology evaluation and assessment for urinary retention. Advised patient that I will defer management of insomnia to Dr. Ramírez. Hospital Course Summary Disclaimer: The visit summary below is not to be considered part of the above Progress Note.
[2017-09-08] MEDS: NITROFURANTOIN (MACROBID) 100 MG CAPSULE PO SCH ×2 (11:30→17:20)
[2017-09-08] MEDS ORDERED: CEFTRIAXONE 1 G in NS 100 ML IV SCH (13:00)
--- NOTE | 2017-09-08 16:05 | Neuropsych Progress Note ---
[facility] Subjective Date: 09/08/17 - Sujective/Severity of Illness Medications: Bimatoprost (Lumigan) 1 drop EACH EYE [facility] Last Admin: 09/07/17 20:11 Dose: 1 drop Dorzolamide/Timolol (Cosopt Ocumeter Plus) 1 drops EACH EYE BID [facility] Last Admin: 09/08/17 08:19 Dose: 1 drops Escitalopram Oxalate (Lexapro) 20 mg PO DAILY [facility] Last Admin: 09/08/17 08:20 Dose: 20 mg Fenofibrate (Tricor) 145 mg PO WB [facility] Last Admin: 09/08/17 08:20 Dose: 145 mg Furosemide (Lasix) 40 mg PO QAM [facility] Last Admin: 09/08/17 08:20 Dose: 40 mg Gabapentin (Neurontin) 600 mg PO DAILY [facility] Last Admin: 09/08/17 08:21 Dose: 600 mg Gabapentin (Neurontin) 900 mg PO PM [facility] Last Admin: 09/07/17 20:12 Dose: 900 mg Haloperidol (Haldol) 0.5 mg PO Q6H PRN PRN Reason: Extreme agitation Haloperidol Lactate (Haldol) 0.5 mg IM Q6H PRN PRN Reason: Extreme agitation Hydrocortisone Acetate (Anusol-Hc Supp) 25 mg [place] BID PRN PRN Reason: Hemorrhoids Lorazepam (Ativan) 0.5 mg PO Q6H PRN PRN Reason: Extreme agitation Lorazepam (Ativan Inj) 0.5 mg IM Q6H PRN PRN Reason: Extreme agitation Metoprolol Succinate (Toprol Xl) 50 mg PO [facility] Last Admin: 09/07/17 20:12 Dose: 50 mg Nitrofurantoin Macrocrystals (Macrobid) 100 mg PO BIDWM [facility] Stop: 09/14/17 23:59 Last Admin: 09/08/17 11:30 Dose: 100 mg Potassium Chloride (K-Dur) 20 meq PO TIDWM [facility] Last Admin: 09/08/17 11:30 Dose: 20 meq Psyllium Hydrophilic Mucilloid (Metamucil) 1 packet PO [facility] Last Admin: 09/07/17 20:12 Dose: 1 packet Sodium Chloride (Iv Flush) 10 - 80 ml IVF PRN PRN PRN Reason: Flushing Last Admin: 09/07/17 20:41 Dose: 10 ml Tamsulosin HCl (Flomax) 0.4 mg PO [facility] Last Admin: 09/07/17 20:12 Dose: 0.4 mg Trazodone HCl (Desyrel) 50 mg PO [facility] Last Admin: 09/07/17 20:12 Dose: 50 mg Subjective: Patient seen and chart reviewed. Case discussed with treatment team. On interview, patient is pleasant and cooperative. He reports that his mood is better than admission because of the food, but I believe increased socialization is also absolutely necessary for him to do well. Patient denies any SI while here in the hospital, [place] or [place]. Patient denies any adverse side effects related to psychotropic medications. Nursing staff report patient has been pleasant and cooperative, and adherent with medications. Patient slept 6.5 overnight even without Ambien. VSS. Limited appetite. Psychotropic PRNs required in the past 24 hours: none. Hospitalist is changing to Macrobid for treatment of UTI. Start Time: 13:40 Stop Time: 14:00 Mental Status Exam Vitals: Last Vital Signs Temp 97.6 F 09/08/17 08:00 Pulse 98 09/08/17 08:00 Resp 16 09/08/17 08:00 BP 130/71 09/08/17 08:00 Pulse Ox 96 09/08/17 08:00 Height: 1.73 m Weight: 113.8 kg - Mental Status Exam Muscle Strength/Tone: Normal Dressing: Casual Grooming: Fair Attitude: Cooperative Motor Activity: Retardation Eye Contact: Poor Speech: Slowed Volume: Soft Rhythm: Appropriate Rhythm Orientation: Oriented X4 Mood: Depressed (restricted affect) Rate of Thoughts: Delayed Thought Organization: Organized Associations: Intact Abstract Reasoning: Poor abstract reasoning Thought Content: Ruminations, Hopelessness, Helplessness, Worthlessness, Other ( excessive guilt) Perception/Psychotic: Perception Normal Language: Naming Intact Fund of Knowledge: Gabriel aware current events Memory: Grossly Intact Suicidal Ideation: Other (SI with plan/intent at time of admission, denies wanting to hurt himself while on unit) Homicidal Ideation: Denies Insight: Impaired Judgement: Impaired Impulse Control: Fair - Laboratory Result Diagrams: 09/07/17 04:57 09/08/17 04:51 Laboratory Results - last 24 hr 09/08/17 04:51 Turbidity < 20 Sodium 144 Potassium 3.7 Chloride 107 Carbon Dioxide 29 Anion Gap 8 BUN 16.0 Creatinine 0.8 GFR Calculation 96 BUN/Creatinine Ratio 20 Glucose 104 Calculated Osmolality 278 Calcium 10.0 Icterus Index < 2 Specimen Hemolysis < 15 Assessment and Plan (1) MDD (major depressive disorder), recurrent severe, without psychosis Current visit: No Status: Acute (2) Hypoxia Current visit: No Status: Acute (3) Congestive heart failure Qualifiers: Congestive heart failure type: unspecified congestive heart failure type Congestive heart failure chronicity: chronic Qualified Code(s): I50.9 - Heart failure, unspecified Current visit: No Status: Acute (4) Hypertension Problem details: Continue present medications. Current visit: No Status: Chronic Hospital Course Summary Disclaimer: The visit summary below is not to be considered part of the above Progress Note. Hospital Course: 09/07/17 IMPRESSION UTI Hyperbilirubinemia Depression Hypernatremia Chronic diastolic CHF Glaucoma HTN High triglycerides Lumbar disc disease Peripheral neuropathy PLAN Agree with admission to [facility]. Hospitalist service covering for Dr. Bajwa. GJ c/o urinary frequency; UA showed nitrates and WBC - will culture. Received Rocephin in the ED; will continue this until culture comes back. Hypernatremia, poor oral intake - ask nurses to push oral fluids. Repeat BMP in am. Diuretics were held at time of last DC but he still required KDur 20 mEq BID to maintain stable potassium level. Elevated total bili with normal values of other LFTs. Monitor. Hgb A1c was checked in Oct (5%) & TSH was normal (1.63) at that time. CXR on admit was neg for CHF/pneumonia/acute findings (mild atelectasis in bases). Of note, had bright red heme positive rectal bleeding during last hospitalization and fish oil and ASA were discontinued - hgb on admit was 15. Depression tx per attending. Thanks for this consult - we will follow Mr. Bush during his [facility] stay. Plan-09/08/17: GJ is fairly anxious on exam and eagerly awaiting morning medications. Denies SI/HI on exam. Continue psychiatric care per Dr. Ramírez and team. Continue to provide safe and supportive environment. Patient is safe for floor activities. Review of admission labs revealed hypernatremia (Na 145) - continue to encourage patient to increase oral intake. Will recheck BMP in AM to monitor electrolytes and renal function. UA revealed 5-10 WBC with early growth noted on culture. Review of prior urine culture from 08/19/17 revealed coag negative staph which was multi drug resistant. Will discontinue Rocephin and initiate macrobid 100mg BID x 7 days given prior resistance patterns while awaiting sensitivities on recent UA. GFR 111. Monitor renal function periodically throughout admission. Continue to monitor volume status and BP due to his diastolic heart failure. Check daily weights for trending up. Recheck CBC and BMP in AM to monitor blood counts, electrolytes and renal function. Patient remains afebrile. 09/08/17 Psych: Patient reports feeling better today with increased PO intake and socialization. I believe that placement in [place] would be most beneficial for his depression as well as preventing further hospitalizations, and do not feel he would be safe to discharge to home. Vitamin B12 and folate levels still pending; continue current care and encourage participation in groups, increased socialization.
[2017-09-08] MEDS: GABAPENTIN 300 MG CAPSULE PO SCH (20:45)
[2017-09-08] MEDS: BIMATOPROST 0.01% EACH EYE SCH (20:47)
[2017-09-08] MEDS: EYE EACH EYE SCH (20:47)
[2017-09-08] MEDS: PSYLLIUM PACKET PO SCH (20:48)
[2017-09-08] MEDS: TRAZODONE 50 MG TABLET PO SCH (20:48)
[2017-09-08] MEDS: TAMSULOSIN 0.4 MG CAPSULE PO SCH (20:48)
[2017-09-09] MEDS: TIMOLOL EYE EACH EYE SCH ×2 (08:42→21:18)
[2017-09-09] MEDS: DORZOLAMIDE EACH EYE SCH ×2 (08:42→21:18)
[2017-09-09] MEDS: GABAPENTIN 600 MG TABLET PO SCH (08:42)
[2017-09-09] MEDS: FENOFIBRATE 145 MG TABLET PO SCH (08:42)
[2017-09-09] MEDS: NITROFURANTOIN (MACROBID) 100 MG CAPSULE PO SCH ×2 (08:42→17:21)
[2017-09-09] MEDS: ESCITALOPRAM 20 MG TABLET PO SCH (08:42)
[2017-09-09] MEDS: FUROSEMIDE 40 MG TABLET PO SCH (08:42)
--- NOTE | 2017-09-09 19:27 | Neuropsych Progress Note ---
[facility] Subjective Date: 09/09/17 - Sujective/Severity of Illness Medications: Bimatoprost (Lumigan) 1 drop EACH EYE [facility] Last Admin: 09/08/17 20:47 Dose: 1 drop Dorzolamide/Timolol (Cosopt Ocumeter Plus) 1 drops EACH EYE BID [facility] Last Admin: 09/09/17 08:42 Dose: 1 drops Escitalopram Oxalate (Lexapro) 20 mg PO DAILY [facility] Last Admin: 09/09/17 08:42 Dose: 20 mg Fenofibrate (Tricor) 145 mg PO WB [facility] Last Admin: 09/09/17 08:42 Dose: 145 mg Furosemide (Lasix) 40 mg PO QAM [facility] Last Admin: 09/09/17 08:42 Dose: 40 mg Gabapentin (Neurontin) 600 mg PO DAILY [facility] Last Admin: 09/09/17 08:42 Dose: 600 mg Gabapentin (Neurontin) 900 mg PO PM [facility] Last Admin: 09/08/17 20:45 Dose: 900 mg Haloperidol (Haldol) 0.5 mg PO Q6H PRN PRN Reason: Extreme agitation Haloperidol Lactate (Haldol) 0.5 mg IM Q6H PRN PRN Reason: Extreme agitation Hydrocortisone Acetate (Anusol-Hc Supp) 25 mg [place] BID PRN PRN Reason: Hemorrhoids Lorazepam (Ativan) 0.5 mg PO Q6H PRN PRN Reason: Extreme agitation Lorazepam (Ativan Inj) 0.5 mg IM Q6H PRN PRN Reason: Extreme agitation Metoprolol Succinate (Toprol Xl) 50 mg PO [facility] Last Admin: 09/08/17 20:47 Dose: 50 mg Nitrofurantoin Macrocrystals (Macrobid) 100 mg PO BIDWM [facility] Stop: 09/14/17 23:59 Last Admin: 09/09/17 17:21 Dose: 100 mg Potassium Chloride (K-Dur) 20 meq PO TIDWM [facility] Last Admin: 09/09/17 17:21 Dose: 20 meq Psyllium Hydrophilic Mucilloid (Metamucil) 1 packet PO [facility] Last Admin: 09/08/17 20:48 Dose: 1 packet Sodium Chloride (Iv Flush) 10 - 80 ml IVF PRN PRN PRN Reason: Flushing Last Admin: 09/07/17 20:41 Dose: 10 ml Tamsulosin HCl (Flomax) 0.4 mg PO [facility] Last Admin: 09/08/17 20:48 Dose: 0.4 mg Trazodone HCl (Desyrel) 50 mg PO [facility] Last Admin: 09/08/17 20:48 Dose: 50 mg Subjective: Patient seen and chart reviewed. Case discussed with treatment team. On interview, patient is pleasant and cooperative. He reports that his mood is better than admission but he still has intermittent SI. Patient denies any plant to hurt himself while here in the hospital, [place] or [facility]. Patient denies any adverse side effects related to psychotropic medications. Nursing staff report patient has been pleasant and cooperative, and adherent with medications. Patient slept 8.5 hours overnight. VSS. Appetite improving. Psychotropic PRNs required in the past 24 hours: none. Start Time: 14:20 Stop Time: 14:40 Mental Status Exam Vitals: Last Vital Signs Temp 97.4 F 09/09/17 15:33 Pulse 65 09/09/17 15:33 Resp 20 09/09/17 15:33 BP 118/63 09/09/17 15:33 Pulse Ox 97 09/09/17 15:33 Height: 1.73 m Weight: 114.3 kg - Mental Status Exam Muscle Strength/Tone: Normal Dressing: Casual Grooming: Fair Attitude: Cooperative Motor Activity: Retardation Eye Contact: Poor Speech: Slowed Volume: Soft Rhythm: Appropriate Rhythm Orientation: Oriented X4 Mood: Depressed (restricted affect) Rate of Thoughts: Delayed Thought Organization: Organized Associations: Intact Abstract Reasoning: Poor abstract reasoning Thought Content: Ruminations, Hopelessness, Helplessness, Worthlessness, Other ( excessive guilt, low self-esteem) Perception/Psychotic: Perception Normal Language: Naming Intact Fund of Knowledge: Gabriel aware current events Memory: Grossly Intact Suicidal Ideation: Intermittent, Other (not safe outside of hospital) Homicidal Ideation: Denies Insight: Impaired Judgement: Impaired Impulse Control: Fair - Laboratory Result Diagrams: 09/09/17 07:19 09/09/17 07:19 Laboratory Results - last 24 hr 09/09/17 09/09/17 07:19 07:19 WBC 6.4 RBC 4.51 Hgb 14.2 Hct 42.9 MCV 95.1 MCH 31.5 MCHC 33.1 RDW Std Deviation 45.8 Plt Count 168 MPV 9.3 L Immature Gran % (Auto) 0.0 Neut % (Auto) 52.4 Lymph % (Auto) 35.6 Calloway % (Auto) 8.8 Eos % (Auto) 2.4 Baso % (Auto) 0.8 Neut # (Auto) 3.3 Lymph # (Auto) 2.3 Calloway # (Auto) 0.6 Eos # (Auto) 0.2 Baso # (Auto) 0.1 Abs Immat Gran (auto) 0.00 Turbidity < 20 Sodium 148 H Potassium 4.2 Chloride 108 H Carbon Dioxide 29 Anion Gap 11 BUN 19.0 Creatinine 0.8 GFR Calculation 96 BUN/Creatinine Ratio 24 Glucose 99 Calculated Osmolality 286 H Calcium 10.0 Icterus Index < 2 Specimen Hemolysis < 15 Assessment and Plan (1) MDD (major depressive disorder), recurrent severe, without psychosis Current visit: No Status: Acute (2) Hypoxia Current visit: No Status: Acute (3) Congestive heart failure Qualifiers: Congestive heart failure type: unspecified congestive heart failure type Congestive heart failure chronicity: chronic Qualified Code(s): I50.9 - Heart failure, unspecified Current visit: No Status: Acute (4) Hypertension Problem details: Continue present medications. Current visit: No Status: Chronic Hospital Course Summary Disclaimer: The visit summary below is not to be considered part of the above Progress Note. Hospital Course: 09/07/17 IMPRESSION UTI Hyperbilirubinemia Depression Hypernatremia Chronic diastolic CHF Glaucoma HTN High triglycerides Lumbar disc disease Peripheral neuropathy PLAN Agree with admission to [facility]. Hospitalist service covering for Dr. Bajwa. GJ c/o urinary frequency; UA showed nitrates and WBC - will culture. Received Rocephin in the ED; will continue this until culture comes back. Hypernatremia, poor oral intake - ask nurses to push oral fluids. Repeat BMP in am. Diuretics were held at time of last DC but he still required KDur 20 mEq BID to maintain stable potassium level. Elevated total bili with normal values of other LFTs. Monitor. Hgb A1c was checked in Aug (5%) & TSH was normal (1.63) at that time. CXR on admit was neg for CHF/pneumonia/acute findings (mild atelectasis in bases). Of note, had bright red heme positive rectal bleeding during last hospitalization and fish oil and ASA were discontinued - hgb on admit was 15. Depression tx per attending. Thanks for this consult - we will follow Mr. Bush during his [facility] stay. Plan-09/08/17: GJ is fairly anxious on exam and eagerly awaiting morning medications. Denies SI/HI on exam. Continue psychiatric care per Dr. Ramírez and team. Continue to provide safe and supportive environment. Patient is safe for floor activities. Review of admission labs revealed hypernatremia (Na 145) - continue to encourage patient to increase oral intake. Will recheck BMP in AM to monitor electrolytes and renal function. UA revealed 5-10 WBC with early growth noted on culture. Review of prior urine culture from 08/19/17 revealed coag negative staph which was multi drug resistant. Will discontinue Rocephin and initiate macrobid 100mg BID x 7 days given prior resistance patterns while awaiting sensitivities on recent UA. GFR 111. Monitor renal function periodically throughout admission. Continue to monitor volume status and BP due to his diastolic heart failure. Check daily weights for trending up. Recheck CBC and BMP in AM to monitor blood counts, electrolytes and renal function. Patient remains afebrile. 09/08/17 Psych: Patient reports feeling better today with increased PO intake and socialization. I believe that placement in [place] would be most beneficial for his depression as well as preventing further hospitalizations, and do not feel he would be safe to discharge to home. Vitamin B12 and folate levels still pending; continue current care and encourage participation in groups, increased socialization. 09/09/17 Psych: Continue current care - mood improving with socialization, improved nutrition, sleep. Do not believe he is safe outside of this setting at this point. Discussing options for placement with niece as increased socialization will be essential for patient to do well outside of hospital. B12 , folate WNL.
[2017-09-09] MEDS: PSYLLIUM PACKET PO SCH (21:18)
[2017-09-09] MEDS: GABAPENTIN 300 MG CAPSULE PO SCH (21:18)
[2017-09-09] MEDS: TRAZODONE 50 MG TABLET PO SCH (21:18)
[2017-09-09] MEDS: TAMSULOSIN 0.4 MG CAPSULE PO SCH (21:18)
[2017-09-09] MEDS: EYE EACH EYE SCH (21:19)
[2017-09-09] MEDS: BIMATOPROST 0.01% EACH EYE SCH (21:19)
[2017-09-10] MEDS: NITROFURANTOIN (MACROBID) 100 MG CAPSULE PO SCH ×2 (08:42→17:24)
[2017-09-10] MEDS: ESCITALOPRAM 20 MG TABLET PO SCH (08:43)
[2017-09-10] MEDS: GABAPENTIN 600 MG TABLET PO SCH (08:43)
[2017-09-10] MEDS: FENOFIBRATE 145 MG TABLET PO SCH (08:43)
[2017-09-10] MEDS: FUROSEMIDE 40 MG TABLET PO SCH (08:43)
[2017-09-10] MEDS: TIMOLOL EYE EACH EYE SCH ×2 (08:43→20:20)
[2017-09-10] MEDS: DORZOLAMIDE EACH EYE SCH ×2 (08:43→20:20)
--- NOTE | 2017-09-10 17:03 | Neuropsych Progress Note ---
[facility] Subjective Date: 09/10/17 - Sujective/Severity of Illness Medications: Bimatoprost (Lumigan) 1 drop EACH EYE [facility] Last Admin: 09/09/17 21:19 Dose: 1 drop Dorzolamide/Timolol (Cosopt Ocumeter Plus) 1 drops EACH EYE BID [facility] Last Admin: 09/10/17 08:43 Dose: 1 drops Escitalopram Oxalate (Lexapro) 20 mg PO DAILY [facility] Last Admin: 09/10/17 08:43 Dose: 20 mg Fenofibrate (Tricor) 145 mg PO WB [facility] Last Admin: 09/10/17 08:43 Dose: 145 mg Furosemide (Lasix) 40 mg PO QAM [facility] Last Admin: 09/10/17 08:43 Dose: 40 mg Gabapentin (Neurontin) 600 mg PO DAILY [facility] Last Admin: 09/10/17 08:43 Dose: 600 mg Gabapentin (Neurontin) 900 mg PO PM [facility] Last Admin: 09/09/17 21:18 Dose: 900 mg Haloperidol (Haldol) 0.5 mg PO Q6H PRN PRN Reason: Extreme agitation Haloperidol Lactate (Haldol) 0.5 mg IM Q6H PRN PRN Reason: Extreme agitation Hydrocortisone Acetate (Anusol-Hc Supp) 25 mg ND BID PRN PRN Reason: Hemorrhoids Lorazepam (Ativan) 0.5 mg PO Q6H PRN PRN Reason: Extreme agitation Lorazepam (Ativan Inj) 0.5 mg IM Q6H PRN PRN Reason: Extreme agitation Metoprolol Succinate (Toprol Xl) 50 mg PO [facility] Last Admin: 09/09/17 21:18 Dose: 50 mg Nitrofurantoin Macrocrystals (Macrobid) 100 mg PO BIDWM [facility] Stop: 09/14/17 23:59 Last Admin: 09/10/17 08:42 Dose: 100 mg Potassium Chloride (K-Dur) 20 meq PO TIDWM [facility] Last Admin: 09/10/17 13:05 Dose: 20 meq Psyllium Hydrophilic Mucilloid (Metamucil) 1 packet PO [facility] Last Admin: 09/09/17 21:18 Dose: 1 packet Sodium Chloride (Iv Flush) 10 - 80 ml IVF PRN PRN PRN Reason: Flushing Last Admin: 09/07/17 20:41 Dose: 10 ml Tamsulosin HCl (Flomax) 0.4 mg PO [facility] Last Admin: 09/09/17 21:18 Dose: 0.4 mg Trazodone HCl (Desyrel) 50 mg PO [facility] Last Admin: 09/09/17 21:18 Dose: 50 mg Subjective: Patient seen and chart reviewed. Case discussed with treatment team. On interview, patient is pleasant and cooperative. He reports that his mood is better than admission and denies SI today. He reports feeling "a little anxious " about what is going to happen after discharge though he states he [place] move [place] new [place] ([place] Family reportedly working to arrange this which I think will be a necessary part of a safe discharge plan. He will also need mental health f/u after dicharge. Patient denies any plan to hurt himself while here in the hospital, [place] or [facility]. Patient denies any adverse side effects related to psychotropic medications. Nursing staff report patient has been pleasant and cooperative, and adherent with medications. He seems to be a relatively bashful person but interacts well if someone else initiates conversation. Patient slept 8.5 hours overnight. VSS. Good appetite. Psychotropic PRNs required in the past 24 hours: none. t Start Time: 14:20 Stop Time: 14:40 Mental Status Exam Vitals: Last Vital Signs Temp 97.8 F 09/10/17 08:00 Pulse 72 09/10/17 08:00 Resp 16 09/10/17 08:00 BP 135/67 09/10/17 08:00 Pulse Ox 93 09/10/17 08:00 Height: 1.73 m Weight: 114.1 kg - Mental Status Exam Muscle Strength/Tone: Normal Dressing: Casual Grooming: Fair Attitude: Cooperative Motor Activity: Retardation Eye Contact: Poor Speech: Slowed Volume: Soft Rhythm: Appropriate Rhythm Orientation: Oriented X4 Mood: Depressed (feels mood is better but still depressed, restricted affect) Rate of Thoughts: Delayed Thought Organization: Organized Associations: Intact Abstract Reasoning: Poor abstract reasoning Thought Content: Ruminations, Hopelessness, Helplessness, Worthlessness, Other ( excessive guilt, low self-esteem) Perception/Psychotic: Perception Normal Language: Naming Intact Fund of Knowledge: Gabriel aware current events Memory: Grossly Intact Suicidal Ideation: Denies, Other (not safe outside of hospital) Homicidal Ideation: Denies Insight: Impaired Judgement: Impaired Impulse Control: Fair - Laboratory Result Diagrams: 09/09/17 07:19 09/09/17 07:19 Assessment and Plan (1) MDD (major depressive disorder), recurrent severe, without psychosis Current visit: No Status: Acute (2) Hypoxia Current visit: No Status: Acute (3) Congestive heart failure Qualifiers: Congestive heart failure type: unspecified congestive heart failure type Congestive heart failure chronicity: chronic Qualified Code(s): I50.9 - Heart failure, unspecified Current visit: No Status: Acute (4) Hypertension Problem details: Continue present medications. Current visit: No Status: Chronic Hospital Course Summary Disclaimer: The visit summary below is not to be considered part of the above Progress Note. Hospital Course: 09/07/17 IMPRESSION UTI Hyperbilirubinemia Depression Hypernatremia Chronic diastolic CHF Glaucoma HTN High triglycerides Lumbar disc disease Peripheral neuropathy PLAN Agree with admission to [facility]. Hospitalist service covering for Dr. Bajwa. GJ c/o urinary frequency; UA showed nitrates and WBC - will culture. Received Rocephin in the ED; will continue this until culture comes back. Hypernatremia, poor oral intake - ask nurses to push oral fluids. Repeat BMP in am. Diuretics were held at time of last DC but he still required KDur 20 mEq BID to maintain stable potassium level. Elevated total bili with normal values of other LFTs. Monitor. Hgb A1c was checked in Oct (5%) & TSH was normal (1.63) at that time. CXR on admit was neg for CHF/pneumonia/acute findings (mild atelectasis in bases). Of note, had bright red heme positive rectal bleeding during last hospitalization and fish oil and ASA were discontinued - hgb on admit was 15. Depression tx per attending. Thanks for this consult - we will follow Mr. Bush during his [facility] stay. Plan-09/08/17: GJ is fairly anxious on exam and eagerly awaiting morning medications. Denies SI/HI on exam. Continue psychiatric care per Dr. Ramírez and team. Continue to provide safe and supportive environment. Patient is safe for floor activities. Review of admission labs revealed hypernatremia (Na 145) - continue to encourage patient to increase oral intake. Will recheck BMP in AM to monitor electrolytes and renal function. UA revealed 5-10 WBC with early growth noted on culture. Review of prior urine culture from 08/19/17 revealed coag negative staph which was multi drug resistant. Will discontinue Rocephin and initiate macrobid 100mg BID x 7 days given prior resistance patterns while awaiting sensitivities on recent UA. GFR 111. Monitor renal function periodically throughout admission. Continue to monitor volume status and BP due to his diastolic heart failure. Check daily weights for trending up. Recheck CBC and BMP in AM to monitor blood counts, electrolytes and renal function. Patient remains afebrile. 09/08/17 Psych: Patient reports feeling better today with increased PO intake and socialization. I believe that placement in [place] would be most beneficial for his depression as well as preventing further hospitalizations, and do not feel he would be safe to discharge to home. Vitamin B12 and folate levels still pending; continue current care and encourage participation in groups, increased socialization. 09/09/17 Psych: Continue current care - mood improving with socialization, improved nutrition, sleep. Do not believe he is safe outside of this setting at this point. Discussing options for placement with niece as increased socialization will be essential for patient to do well outside of hospital. B12 , folate WNL. 09/10/17 Psych: Continue current care - mood improving with socialization, improved nutrition, sleep. Do not believe he is safe outside of this setting at this point. Discussing options for placement with niece as increased socialization will be essential for patient to do well outside of hospital.
[2017-09-10] MEDS: PSYLLIUM PACKET PO SCH (20:15)
[2017-09-10] MEDS: TAMSULOSIN 0.4 MG CAPSULE PO SCH (20:17)
[2017-09-10] MEDS: TRAZODONE 50 MG TABLET PO SCH (20:17)
[2017-09-10] MEDS: GABAPENTIN 300 MG CAPSULE PO SCH (20:18)
[2017-09-10] MEDS: BIMATOPROST 0.01% EACH EYE SCH (20:19)
[2017-09-10] MEDS: EYE EACH EYE SCH (20:19)
[2017-09-10] MEDS: ACETAMINOPHEN 325 MG TABLET PO PRN (20:30)
[2017-09-11] MEDS: NITROFURANTOIN (MACROBID) 100 MG CAPSULE PO SCH ×2 (07:54→17:16)
[2017-09-11] MEDS: FENOFIBRATE 145 MG TABLET PO SCH (07:54)
[2017-09-11] MEDS: TIMOLOL EYE EACH EYE SCH ×3 (07:55→20:20)
[2017-09-11] MEDS: DORZOLAMIDE EACH EYE SCH ×3 (07:55→20:20)
[2017-09-11] MEDS: FUROSEMIDE 40 MG TABLET PO SCH ×2 (07:55→16:02)
[2017-09-11] MEDS: ESCITALOPRAM 20 MG TABLET PO SCH ×2 (07:55→16:02)
[2017-09-11] MEDS: GABAPENTIN 600 MG TABLET PO SCH ×2 (07:56→16:02)
--- NOTE | 2017-09-11 16:15 | Progress Note ---
- Date 09/11/17 Subjective: Paolo is seen today in follow up for his depression and hypernatremia. He is seen while sitting in a recliner in the day room and greats me with a smile. He denies any complaints or concerns. No chest pain, shortness of breath, abdominal pain, nausea, vomiting or dysuria. His appetite is good and his bowels are moving. He is actively eating ice-cream on exam. Review of his recent labs on 09/09 revealed hypernatremia with sodium at 148. Encouraged him to drink more water. Otherwise, he appears to be doing well. Objective Vital signs: Temperature 97.4 F 09/11/17 08:00 Pulse Rate 90 09/11/17 08:00 Respiratory Rate 16 09/11/17 08:00 Blood Pressure 131/67 09/11/17 08:00 Pulse Oximetry 95 09/11/17 08:00 Height/Weight/BMI: Height 5 ft 8 in Weight 252 lb 3.341 oz Body Mass Index 38.1 - Constitutional Present: no acute distress, well nourished, well developed, cooperative Comments: eating ice-cream in the day room - Routine HEENT Exam Head: Present: normocephalic, atraumatic Eye: Present: PERRL. Absent: conjunctival icterus ENT: Present: mucous membranes moist - Routine Respiratory Exam Present: CTA bilaterally. Absent: rhonchi, stridor, wheezes - Routine Cardiovascular Exam Present: irregularly irregular - Routine Abdominal Exam Present: soft, normoactive bowel sounds, non distended, non tender - Routine Extremities Exam Present: no edema, non tender, pulses intact - Routine Back/Spine/Pelvis Exam Back/Spine: Present: full ROM - Routine Musculoskeletal Exam Musculoskeletal: Present: normal strength, moving extremities well - Routine Skin Exam Present: intact, dry, warm. Absent: jaundice - Routine Neurological Exam Present: alert, moving all extremities, normal speech - Routine Lymphatic Exam Lymphatic: Absent: lymphedema - Routine Psychiatric Exam Present: cooperative Results - Labs CBC & Chem 7: 09/09/17 07:19 09/09/17 07:19 Assessment and Plan (1) MDD (major depressive disorder), recurrent severe, without psychosis Current visit: No Status: Acute Assessment and Plan: Plan - 09/11/17: Overall, Paolo appears to be doing well. Continue psychiatric care per Dr. Ramírez. Continue to provide safe and supportive environment. Labs on 09/09 revealed hypernatremia. Discussed with patient and nursing and encouraged increased oral intake. Will recheck BMP on 09/12 to monitor electrolytes and renal function. Vital signs stable and no other concerns. Resuscitation Status: Full Code - Time spent with patient Time with patient PN: 25 minutes Hospital Course Summary Disclaimer: The visit summary below is not to be considered part of the above Progress Note. Hospital Course: 09/07/17 IMPRESSION UTI Hyperbilirubinemia Depression Hypernatremia Chronic diastolic CHF Glaucoma HTN High triglycerides Lumbar disc disease Peripheral neuropathy PLAN Agree with admission to [facility]. Hospitalist service covering for Dr. Bajwa. GJ c/o urinary frequency; UA showed nitrates and WBC - will culture. Received Rocephin in the ED; will continue this until culture comes back. Hypernatremia, poor oral intake - ask nurses to push oral fluids. Repeat BMP in am. Diuretics were held at time of last DC but he still required KDur 20 mEq BID to maintain stable potassium level. Elevated total bili with normal values of other LFTs. Monitor. Hgb A1c was checked in Oct (5%) & TSH was normal (1.63) at that time. CXR on admit was neg for CHF/pneumonia/acute findings (mild atelectasis in bases). Of note, had bright red heme positive rectal bleeding during last hospitalization and fish oil and ASA were discontinued - hgb on admit was 15. Depression tx per attending. Thanks for this consult - we will follow Mr. Bush during his [facility] stay. Plan-09/08/17: GJ is fairly anxious on exam and eagerly awaiting morning medications. Denies SI/HI on exam. Continue psychiatric care per Dr. Ramírez and team. Continue to provide safe and supportive environment. Patient is safe for floor activities. Review of admission labs revealed hypernatremia (Na 145) - continue to encourage patient to increase oral intake. Will recheck BMP in AM to monitor electrolytes and renal function. UA revealed 5-10 WBC with early growth noted on culture. Review of prior urine culture from 08/19/17 revealed coag negative staph which was multi drug resistant. Will discontinue Rocephin and initiate macrobid 100mg BID x 7 days given prior resistance patterns while awaiting sensitivities on recent UA. GFR 111. Monitor renal function periodically throughout admission. Continue to monitor volume status and BP due to his diastolic heart failure. Check daily weights for trending up. Recheck CBC and BMP in AM to monitor blood counts, electrolytes and renal function. Patient remains afebrile. 09/08/17 Psych: Patient reports feeling better today with increased PO intake and socialization. I believe that placement in [place] would be most beneficial for his depression as well as preventing further hospitalizations, and do not feel he would be safe to discharge to home. Vitamin B12 and folate levels still pending; continue current care and encourage participation in groups, increased socialization. 09/09/17 Psych: Continue current care - mood improving with socialization, improved nutrition, sleep. Do not believe he is safe outside of this setting at this point. Discussing options for placement with niece as increased socialization will be essential for patient to do well outside of hospital. B12 , folate WNL. 09/10/17 Psych: Continue current care - mood improving with socialization, improved nutrition, sleep. Do not believe he is safe outside of this setting at this point. Discussing options for placement with niece as increased socialization will be essential for patient to do well outside of hospital. Plan - 09/11/17: Overall, Paolo appears to be doing well. Continue psychiatric care per Dr. Ramírez. Continue to provide safe and supportive environment. Labs on 09/09 revealed hypernatremia. Discussed with patient and nursing and encouraged increased oral intake. Will recheck BMP on 09/12 to monitor electrolytes and renal function. Vital signs stable and no other concerns.
--- NOTE | 2017-09-11 17:54 | Neuropsych Progress Note ---
[facility] Subjective Date: 09/11/17 - Sujective/Severity of Illness Medications: Acetaminophen (Tylenol) 325 - 650 mg PO Q5H PRN PRN Reason: Discomfort Last Admin: 09/10/17 20:30 Dose: 650 mg Bimatoprost (Lumigan) 1 drop EACH EYE [facility] Last Admin: 09/10/17 20:19 Dose: 1 drop Dorzolamide/Timolol (Cosopt Ocumeter Plus) 1 drops EACH EYE BID [facility] Last Admin: 09/11/17 16:02 Dose: Not Given Escitalopram Oxalate (Lexapro) 20 mg PO DAILY [facility] Last Admin: 09/11/17 16:02 Dose: Not Given Fenofibrate (Tricor) 145 mg PO WB [facility] Last Admin: 09/11/17 07:54 Dose: 145 mg [facility]urosemide (Lasix) [facility] Last Admin: 09/11/17 16:02 Dose: Not Given Gabapentin (Neurontin) 600 mg PO DAILY [facility] Last Admin: 09/11/17 16:02 Dose: Not Given Gabapentin (Neurontin) 900 mg PO PM [facility] Last Admin: 09/10/17 20:18 Dose: 900 mg Haloperidol (Haldol) 0.5 mg PO Q6H PRN PRN Reason: Extreme agitation Haloperidol Lactate (Haldol) 0.5 mg IM Q6H PRN PRN Reason: Extreme agitation Hydrocortisone Acetate (Anusol-Hc Supp) 25 mg OR BID PRN PRN Reason: Hemorrhoids Lorazepam (Ativan) 0.5 mg PO Q6H PRN PRN Reason: Extreme agitation Lorazepam (Ativan Inj) 0.5 mg IM Q6H PRN PRN Reason: Extreme agitation Metoprolol Succinate (Toprol Xl) 50 mg PO [facility] Last Admin: 09/10/17 20:17 Dose: 50 mg Nitrofurantoin Macrocrystals (Macrobid) 100 mg PO BIDWM [facility] Stop: 09/14/17 23:59 Last Admin: 09/11/17 17:16 Dose: 100 mg Potassium Chloride (K-Dur) 20 meq PO TIDWM [facility] Last Admin: 09/11/17 17:16 Dose: 20 meq Psyllium Hydrophilic Mucilloid (Metamucil) 1 packet PO [facility] Last Admin: 09/10/17 20:15 Dose: 1 packet Sodium Chloride (Iv Flush) 10 - 80 ml IVF PRN PRN PRN Reason: Flushing Last Admin: 09/07/17 20:41 Dose: 10 ml Tamsulosin HCl (Flomax) 0.4 mg PO [facility] Last Admin: 09/10/17 20:17 Dose: 0.4 mg Trazodone HCl (Desyrel) 50 mg PO [facility] Last Admin: 09/10/17 20:17 Dose: 50 mg Subjective: Patient seen and chart reviewed. Case discussed with treatment team. On interview, patient is pleasant and cooperative. He reports that his mood is better than admission and denies SI today. He reports feeling "a little anxious " about what is going to happen after discharge though he states he would like to move [place] new apartment ([place]). Family reportedly working to arrange this which I think will be a necessary part of a safe discharge plan. He will also need mental health f/u after dicharge. Patient denies any plan to hurt himself while here in the hospital, [place] or [facility]. Patient denies any adverse side effects related to psychotropic medications. Nursing staff report patient has been pleasant and cooperative, and adherent with medications. He seems to be a relatively bashful person but interacts well if someone else initiates conversation. Patient slept well overnight. VSS. Good appetite. Psychotropic PRNs required in the past 24 hours: none. t Start Time: 08:20 Stop Time: 08:40 Mental Status Exam Vitals: Last Vital Signs Temp 97.8 F 09/11/17 16:00 Pulse 83 09/11/17 16:00 Resp 18 09/11/17 16:00 BP 111/61 09/11/17 16:00 Pulse Ox 94 09/11/17 16:00 Height: 1.73 m Weight: 114.4 kg - Mental Status Exam Muscle Strength/Tone: Normal Dressing: Casual Grooming: Fair Attitude: Cooperative Motor Activity: Retardation Eye Contact: Poor Speech: Slowed Volume: Soft Rhythm: Appropriate Rhythm Orientation: Oriented X4 Mood: Depressed (feels mood is better but still depressed, restricted affect) Rate of Thoughts: Delayed Thought Organization: Organized Associations: Intact Abstract Reasoning: Poor abstract reasoning Thought Content: Ruminations, Hopelessness, Helplessness, Worthlessness, Other ( excessive guilt, low self-esteem) Perception/Psychotic: Perception Normal Language: Naming Intact Fund of Knowledge: Gabriel aware current events Memory: Grossly Intact Suicidal Ideation: Denies, Other (not safe outside of hospital) Homicidal Ideation: Denies Insight: Impaired Judgement: Impaired Impulse Control: Fair - Laboratory Result Diagrams: 09/09/17 07:19 09/09/17 07:19 Assessment and Plan (1) MDD (major depressive disorder), recurrent severe, without psychosis Current visit: No Status: Acute (2) Hypoxia Current visit: No Status: Acute (3) Congestive heart failure Qualifiers: Congestive heart failure type: unspecified congestive heart failure type Congestive heart failure chronicity: chronic Qualified Code(s): I50.9 - Heart failure, unspecified Current visit: No Status: Acute (4) Hypertension Problem details: Continue present medications. Current visit: No Status: Chronic Hospital Course Summary Disclaimer: The visit summary below is not to be considered part of the above Progress Note. Hospital Course: 09/07/17 IMPRESSION UTI Hyperbilirubinemia Depression Hypernatremia Chronic diastolic CHF Glaucoma HTN High triglycerides Lumbar disc disease Peripheral neuropathy PLAN Agree with admission to [facility]. Hospitalist service covering for Dr. Bajwa. GJ c/o urinary frequency; UA showed nitrates and WBC - will culture. Received Rocephin in the ED; will continue this until culture comes back. Hypernatremia, poor oral intake - ask nurses to push oral fluids. Repeat BMP in am. Diuretics were held at time of last DC but he still required KDur 20 mEq BID to maintain stable potassium level. Elevated total bili with normal values of other LFTs. Monitor. Hgb A1c was checked in Oct (5%) & TSH was normal (1.63) at that time. CXR on admit was neg for CHF/pneumonia/acute findings (mild atelectasis in bases). Of note, had bright red heme positive rectal bleeding during last hospitalization and fish oil and ASA were discontinued - hgb on admit was 15. Depression tx per attending. Thanks for this consult - we will follow Mr. Bush during his [facility] stay. Plan-09/08/17: GJ is fairly anxious on exam and eagerly awaiting morning medications. Denies SI/HI on exam. Continue psychiatric care per Dr. Ramírez and team. Continue to provide safe and supportive environment. Patient is safe for floor activities. Review of admission labs revealed hypernatremia (Na 145) - continue to encourage patient to increase oral intake. Will recheck BMP in AM to monitor electrolytes and renal function. UA revealed 5-10 WBC with early growth noted on culture. Review of prior urine culture from 08/19/17 revealed coag negative staph which was multi drug resistant. Will discontinue Rocephin and initiate macrobid 100mg BID x 7 days given prior resistance patterns while awaiting sensitivities on recent UA. GFR 111. Monitor renal function periodically throughout admission. Continue to monitor volume status and BP due to his diastolic heart failure. Check daily weights for trending up. Recheck CBC and BMP in AM to monitor blood counts, electrolytes and renal function. Patient remains afebrile. 09/08/17 Psych: Patient reports feeling better today with increased PO intake and socialization. I believe that placement in [place] would be most beneficial for his depression as well as preventing further hospitalizations, and do not feel he would be safe to discharge to home. Vitamin B12 and folate levels still pending; continue current care and encourage participation in groups, increased socialization. 09/09/17 Psych: Continue current care - mood improving with socialization, improved nutrition, sleep. Do not believe he is safe outside of this setting at this point. Discussing options for placement with niece as increased socialization will be essential for patient to do well outside of hospital. B12 , folate WNL. 09/10/17 Psych: Continue current care - mood improving with socialization, improved nutrition, sleep. Do not believe he is safe outside of this setting at this point. Discussing options for placement with niece as increased socialization will be essential for patient to do well outside of hospital. Plan - 09/11/17: Overall, Paolo appears to be doing well. Continue psychiatric care per Dr. Ramírez. Continue to provide safe and supportive environment. Labs on 09/09 revealed hypernatremia. Discussed with patient and nursing and encouraged increased oral intake. Will recheck BMP on 09/12 to monitor electrolytes and renal function. Vital signs stable and no other concerns. 09/11/17 Psych: Continue care as above - will touch base with niece in regards to placement options and progress.
[2017-09-11] MEDS: TRAZODONE 50 MG TABLET PO SCH (20:20)
[2017-09-11] MEDS: TAMSULOSIN 0.4 MG CAPSULE PO SCH (20:20)
[2017-09-11] MEDS: BIMATOPROST 0.01% EACH EYE SCH (20:20)
[2017-09-11] MEDS: EYE EACH EYE SCH (20:20)
[2017-09-11] MEDS: GABAPENTIN 300 MG CAPSULE PO SCH (20:20)
[2017-09-11] MEDS: PSYLLIUM PACKET PO SCH (20:21)
[2017-09-12] MEDS: NITROFURANTOIN (MACROBID) 100 MG CAPSULE PO SCH ×2 (09:10→17:10)
[2017-09-12] MEDS: GABAPENTIN 600 MG TABLET PO SCH (09:10)
[2017-09-12] MEDS: ESCITALOPRAM 20 MG TABLET PO SCH (09:10)
[2017-09-12] MEDS: DORZOLAMIDE EACH EYE SCH ×2 (09:11→20:07)
[2017-09-12] MEDS: FENOFIBRATE 145 MG TABLET PO SCH (09:11)
[2017-09-12] MEDS: FUROSEMIDE 40 MG TABLET PO SCH (09:11)
[2017-09-12] MEDS: TIMOLOL EYE EACH EYE SCH ×2 (09:11→20:07)
--- NOTE | 2017-09-12 14:28 | Neuropsych Progress Note ---
[facility] Subjective Date: 09/12/17 - Sujective/Severity of Illness Medications: Acetaminophen (Tylenol) 325 - 650 mg PO Q5H PRN PRN Reason: Discomfort Last Admin: 09/10/17 20:30 Dose: 650 mg Bimatoprost (Lumigan) 1 drop EACH EYE HS [facility] Last Admin: 09/11/17 20:20 Dose: 1 drop Dorzolamide/Timolol (Cosopt Ocumeter Plus) 1 drops EACH EYE BID [facility] Last Admin: 09/12/17 09:11 Dose: 1 drops Escitalopram Oxalate (Lexapro) 20 mg PO DAILY [facility] Last Admin: 09/12/17 09:10 Dose: 20 mg Fenofibrate (Tricor) 145 mg PO WB [facility] Last Admin: 09/12/17 09:11 Dose: 145 mg [facility] ([facility]ix) [facility] Last Admin: 09/12/17 09:11 Dose: 40 mg Gabapentin (Neurontin) 600 mg PO DAILY [facility] Last Admin: 09/12/17 09:10 Dose: 600 mg Gabapentin (Neurontin) 900 mg PO PM [facility] Last Admin: 09/11/17 20:20 Dose: 900 mg Haloperidol (Haldol) 0.5 mg PO Q6H PRN PRN Reason: Extreme agitation Haloperidol Lactate (Haldol) 0.5 mg IM Q6H PRN PRN Reason: Extreme agitation Hydrocortisone Acetate (Anusol-Hc Supp) 25 mg [place] BID PRN PRN Reason: Hemorrhoids Lorazepam (Ativan) 0.5 mg PO Q6H PRN PRN Reason: Extreme agitation Lorazepam (Ativan Inj) 0.5 mg IM Q6H PRN PRN Reason: Extreme agitation Metoprolol Succinate (Toprol Xl) 50 mg PO [facility] Last Admin: 09/11/17 20:20 Dose: 50 mg Nitrofurantoin Macrocrystals (Macrobid) 100 mg PO BIDWM [facility] Stop: 09/14/17 23:59 Last Admin: 09/12/17 09:10 Dose: 100 mg Potassium Chloride (K-Dur) 20 meq PO TIDWM [facility] Last Admin: 09/12/17 12:02 Dose: 20 meq Psyllium Hydrophilic Mucilloid (Metamucil) 1 packet PO [facility] Last Admin: 09/11/17 20:21 Dose: Not Given Sodium Chloride (Iv Flush) 10 - 80 ml IVF PRN PRN PRN Reason: Flushing Last Admin: 09/07/17 20:41 Dose: 10 ml Tamsulosin HCl (Flomax) 0.4 mg PO HS [facility] Last Admin: 09/11/17 20:20 Dose: 0.4 mg Trazodone HCl (Desyrel) 50 mg PO HS [facility] Last Admin: 09/11/17 20:20 Dose: 50 mg Subjective: Pt seen and chart examined. Nursing reports pt is doing well. Sleeping well and has a good appetite. On face to face the pt states he is feeling better. Mood slightly improved. Denies S/I. Tolerating meds Start Time: 11:00 Stop Time: 11:15 Mental Status Exam Vitals: Last Vital Signs Temp 97.8 F 09/12/17 08:00 Pulse 71 09/12/17 08:00 Resp 20 09/12/17 08:00 BP 122/62 09/12/17 08:00 Pulse Ox 94 09/12/17 08:00 Height: 1.73 m Weight: 114.4 kg - Mental Status Exam Muscle Strength/Tone: Normal Dressing: Casual Grooming: Fair Attitude: Cooperative Motor Activity: Retardation Eye Contact: Poor Speech: Slowed Volume: Soft Rhythm: Appropriate Rhythm Orientation: Oriented X4 Mood: Depressed (feels mood is better but still depressed, restricted affect) Rate of Thoughts: Delayed Thought Organization: Organized Associations: Intact Abstract Reasoning: Poor abstract reasoning Thought Content: Ruminations, Hopelessness, Helplessness, Worthlessness, Other ( excessive guilt, low self-esteem) Perception/Psychotic: Perception Normal Language: Naming Intact Fund of Knowledge: Gabriel aware current events Memory: Grossly Intact Suicidal Ideation: Denies, Other (not safe outside of hospital) Homicidal Ideation: Denies Insight: Impaired Judgement: Impaired Impulse Control: Fair - Laboratory Result Diagrams: 09/12/17 06:54 09/12/17 06:54 Laboratory Results - last 24 hr 09/12/17 09/12/17 06:54 06:54 WBC 6.7 RBC 4.30 L Hgb 13.7 Hct 41.0 MCV 95.3 MCH 31.9 MCHC 33.4 RDW Std Deviation 44.5 Plt Count 163 MPV 9.7 Immature Gran % (Auto) 0.0 Neut % (Auto) 59.6 Lymph % (Auto) 30.0 [place] % (Auto) 7.6 Eos % (Auto) 2.1 Baso % (Auto) 0.7 Neut # (Auto) 4.0 Lymph # (Auto) 2.0 [place] # (Auto) 0.5 Eos # (Auto) 0.1 Baso # (Auto) 0.1 Abs Immat Gran (auto) 0.00 Turbidity < 20 Sodium 143 Potassium 3.9 Chloride 104 Carbon Dioxide 30 Anion Gap 9 BUN 17.0 Creatinine 0.8 GFR Calculation 96 BUN/Creatinine Ratio 21 Glucose 96 Calculated Osmolality 277 Calcium 10.0 Icterus Index < 2 Specimen Hemolysis < 15 Assessment and Plan (1) Hypertension Problem details: Continue present medications. Current visit: No Status: Chronic (2) Hypoxia Current visit: No Status: Acute (3) Congestive heart failure Qualifiers: Congestive heart failure type: unspecified congestive heart failure type Congestive heart failure chronicity: chronic Qualified Code(s): I50.9 - Heart failure, unspecified Current visit: No Status: Acute (4) MDD (major depressive disorder), recurrent severe, without psychosis Current visit: No Status: Acute Hospital Course Summary Disclaimer: The visit summary below is not to be considered part of the above Progress Note. Hospital Course: 09/07/17 IMPRESSION UTI Hyperbilirubinemia Depression Hypernatremia Chronic diastolic CHF Glaucoma HTN High triglycerides Lumbar disc disease Peripheral neuropathy PLAN Agree with admission to [facility]. Hospitalist service covering for Dr. Bajwa. GJ c/o urinary frequency; UA showed nitrates and WBC - will culture. Received Rocephin in the ED; will continue this until culture comes back. Hypernatremia, poor oral intake - ask nurses to push oral fluids. Repeat BMP in am. Diuretics were held at time of last DC but he still required KDur 20 mEq BID to maintain stable potassium level. Elevated total bili with normal values of other LFTs. Monitor. Hgb A1c was checked in Oct (5%) & TSH was normal (1.63) at that time. CXR on admit was neg for CHF/pneumonia/acute findings (mild atelectasis in bases). Of note, had bright red heme positive rectal bleeding during last hospitalization and fish oil and ASA were discontinued - hgb on admit was 15. Depression tx per attending. Thanks for this consult - we will follow Mr. Bush during his [facility] stay. Plan-09/08/17: GJ is fairly anxious on exam and eagerly awaiting morning medications. Denies SI/HI on exam. Continue psychiatric care per Dr. Ramírez and team. Continue to provide safe and supportive environment. Patient is safe for floor activities. Review of admission labs revealed hypernatremia (Na 145) - continue to encourage patient to increase oral intake. Will recheck BMP in AM to monitor electrolytes and renal function. UA revealed 5-10 WBC with early growth noted on culture. Review of prior urine culture from 08/19/17 revealed coag negative staph which was multi drug resistant. Will discontinue Rocephin and initiate macrobid 100mg BID x 7 days given prior resistance patterns while awaiting sensitivities on recent UA. GFR 111. Monitor renal function periodically throughout admission. Continue to monitor volume status and BP due to his diastolic heart failure. Check daily weights for trending up. Recheck CBC and BMP in AM to monitor blood counts, electrolytes and renal function. Patient remains afebrile. 09/08/17 Psych: Patient reports feeling better today with increased PO intake and socialization. I believe that [place] in [place] would be most beneficial for his depression as well as preventing further hospitalizations, and do not feel he would be safe to discharge to home. Vitamin B12 and folate levels still pending; continue current care and encourage participation in groups, increased socialization. 09/09/17 Psych: Continue current care - mood improving with socialization, improved nutrition, sleep. Do not believe he is safe outside of this setting at this point. Discussing options for placement with niece as increased socialization will be essential for patient to do well outside of hospital. B12 , folate WNL. 09/10/17 Psych: Continue current care - mood improving with socialization, improved nutrition, sleep. Do not believe he is safe outside of this setting at this point. Discussing options for placement with niece as increased socialization will be essential for patient to do well outside of hospital. Plan - 09/11/17: Overall, Paolo appears to be doing well. Continue psychiatric care per Dr. Ramírez. Continue to provide safe and supportive environment. Labs on 09/09 revealed hypernatremia. Discussed with patient and nursing and encouraged increased oral intake. Will recheck BMP on 09/12 to monitor electrolytes and renal function. Vital signs stable and no other concerns. 09/11/17 Psych: Continue care as above - will touch base with niece in regards to placement options and progress. 09/12/17 14:27 Remains depressed but improving. Continue current care
[2017-09-12] MEDS: GABAPENTIN 300 MG CAPSULE PO SCH (19:37)
[2017-09-12] MEDS: ACETAMINOPHEN 325 MG TABLET PO PRN (19:37)
[2017-09-12] MEDS: BIMATOPROST 0.01% EACH EYE SCH (20:07)
[2017-09-12] MEDS: EYE EACH EYE SCH (20:07)
[2017-09-12] MEDS: PSYLLIUM PACKET PO SCH (20:08)
[2017-09-12] MEDS: TRAZODONE 50 MG TABLET PO SCH (20:08)
[2017-09-12] MEDS: TAMSULOSIN 0.4 MG CAPSULE PO SCH (20:08)
[2017-09-13] MEDS: NITROFURANTOIN (MACROBID) 100 MG CAPSULE PO SCH ×2 (08:19→17:20)
[2017-09-13] MEDS: FENOFIBRATE 145 MG TABLET PO SCH (08:19)
[2017-09-13] MEDS: TIMOLOL EYE EACH EYE SCH ×2 (08:20→21:39)
[2017-09-13] MEDS: DORZOLAMIDE EACH EYE SCH ×2 (08:20→21:39)
[2017-09-13] MEDS: ESCITALOPRAM 20 MG TABLET PO SCH (08:20)
[2017-09-13] MEDS: GABAPENTIN 600 MG TABLET PO SCH (08:20)
[2017-09-13] MEDS: FUROSEMIDE 40 MG TABLET PO SCH (08:20)
--- NOTE | 2017-09-13 11:12 | Neuropsych Progress Note ---
[facility] Subjective Date: 09/13/17 - Sujective/Severity of Illness Medications: Acetaminophen (Tylenol) 325 - 650 mg PO Q5H PRN PRN Reason: Discomfort Last Admin: 09/12/17 19:37 Dose: 650 mg Bimatoprost (Lumigan) 1 drop EACH EYE HS [facility] Last Admin: 09/12/17 20:07 Dose: 1 drop Dorzolamide/Timolol (Cosopt Ocumeter Plus) 1 drops EACH EYE BID [facility] Last Admin: 09/13/17 08:20 Dose: 1 drops Escitalopram Oxalate (Lexapro) 20 mg PO DAILY [facility] Last Admin: 09/13/17 08:20 Dose: 20 mg Fenofibrate (Tricor) 145 mg PO WB [facility] Last Admin: 09/13/17 08:19 Dose: 145 mg [facility] ([facility]ix) [facility] Last Admin: 09/13/17 08:20 Dose: 40 mg Gabapentin (Neurontin) 600 mg PO DAILY [facility] Last Admin: 09/13/17 08:20 Dose: 600 mg Gabapentin (Neurontin) 900 mg PO PM [facility] Last Admin: 09/12/17 19:37 Dose: 900 mg Haloperidol (Haldol) 0.5 mg PO Q6H PRN PRN Reason: Extreme agitation Haloperidol Lactate (Haldol) 0.5 mg IM Q6H PRN PRN Reason: Extreme agitation Hydrocortisone Acetate (Anusol-Hc Supp) 25 mg [place] BID PRN PRN Reason: Hemorrhoids Lorazepam (Ativan) 0.5 mg PO Q6H PRN PRN Reason: Extreme agitation Lorazepam (Ativan Inj) 0.5 mg IM Q6H PRN PRN Reason: Extreme agitation Metoprolol Succinate (Toprol Xl) 50 mg PO [facility] Last Admin: 09/12/17 20:07 Dose: 50 mg Nitrofurantoin Macrocrystals (Macrobid) 100 mg PO BIDWM [facility] Stop: 09/14/17 23:59 Last Admin: 09/13/17 08:19 Dose: 100 mg Potassium Chloride (K-Dur) 20 meq PO TIDWM [facility] Last Admin: 09/13/17 08:20 Dose: 20 meq Psyllium Hydrophilic Mucilloid (Metamucil) 1 packet PO [facility] Last Admin: 09/12/17 20:08 Dose: Not Given Sodium Chloride (Iv Flush) 10 - 80 ml IVF PRN PRN PRN Reason: Flushing Last Admin: 09/07/17 20:41 Dose: 10 ml Tamsulosin HCl (Flomax) 0.4 mg PO [facility] Last Admin: 09/12/17 20:08 Dose: 0.4 mg Trazodone HCl (Desyrel) 50 mg PO [facility] Last Admin: 09/12/17 20:08 Dose: 50 mg Subjective: Pt seen and chart examined. Nursing reports pt is doing well. Sleeping well and has a good appetite. On face to face the pt states his mood is up and down but for the most part it is improved. Denies S/I. Remains slowed. Tolerating meds. Start Time: 11:15 Stop Time: 11:30 Mental Status Exam Vitals: Last Vital Signs Temp 97.6 F 09/13/17 08:00 Pulse 89 09/13/17 08:00 Resp 16 09/13/17 08:00 BP 124/68 09/13/17 08:00 Pulse Ox 96 09/13/17 08:00 Height: 1.73 m Weight: 116 kg - Mental Status Exam Muscle Strength/Tone: Normal Dressing: Casual Grooming: Fair Attitude: Cooperative Motor Activity: Retardation Eye Contact: Poor Speech: Slowed Volume: Soft Rhythm: Appropriate Rhythm Orientation: Oriented X4 Mood: Depressed (feels mood is better but still depressed, restricted affect) Rate of Thoughts: Delayed Thought Organization: Organized Associations: Intact Abstract Reasoning: Poor abstract reasoning Thought Content: Ruminations, Hopelessness, Helplessness, Worthlessness, Other ( excessive guilt, low self-esteem) Perception/Psychotic: Perception Normal Language: Naming Intact Fund of Knowledge: Gabriel aware current events Memory: Grossly Intact Suicidal Ideation: Denies, Other (not safe outside of hospital) Homicidal Ideation: Denies Insight: Impaired Judgement: Impaired Impulse Control: Fair - Laboratory Result Diagrams: 09/12/17 06:54 09/12/17 06:54 Assessment and Plan (1) Hypertension Problem details: Continue present medications. Current visit: No Status: Chronic (2) Hypoxia Current visit: No Status: Acute (3) Congestive heart failure Qualifiers: Congestive heart failure type: unspecified congestive heart failure type Congestive heart failure chronicity: chronic Qualified Code(s): I50.9 - Heart failure, unspecified Current visit: No Status: Acute (4) MDD (major depressive disorder), recurrent severe, without psychosis Current visit: No Status: Acute Hospital Course Summary Disclaimer: The visit summary below is not to be considered part of the above Progress Note. Hospital Course: 09/07/17 IMPRESSION UTI Hyperbilirubinemia Depression Hypernatremia Chronic diastolic CHF Glaucoma HTN High triglycerides Lumbar disc disease Peripheral neuropathy PLAN Agree with admission to [facility]. Hospitalist service covering for Dr. Bajwa. GJ c/o urinary frequency; UA showed nitrates and WBC - will culture. Received Rocephin in the ED; will continue this until culture comes back. Hypernatremia, poor oral intake - ask nurses to push oral fluids. Repeat BMP in am. Diuretics were held at time of last DC but he still required KDur 20 mEq BID to maintain stable potassium level. Elevated total bili with normal values of other LFTs. Monitor. Hgb A1c was checked in Oct (5%) & TSH was normal (1.63) at that time. CXR on admit was neg for CHF/pneumonia/acute findings (mild atelectasis in bases). Of note, had bright red heme positive rectal bleeding during last hospitalization and fish oil and ASA were discontinued - hgb on admit was 15. Depression tx per attending. Thanks for this consult - we will follow Mr. Bush during his [facility] stay. Plan-09/08/17: GJ is fairly anxious on exam and eagerly awaiting morning medications. Denies SI/HI on exam. Continue psychiatric care per Dr. Ramírez and team. Continue to provide safe and supportive environment. Patient is safe for floor activities. Review of admission labs revealed hypernatremia (Na 145) - continue to encourage patient to increase oral intake. Will recheck BMP in AM to monitor electrolytes and renal function. UA revealed 5-10 WBC with early growth noted on culture. Review of prior urine culture from 08/19/17 revealed coag negative staph which was multi drug resistant. Will discontinue Rocephin and initiate macrobid 100mg BID x 7 days given prior resistance patterns while awaiting sensitivities on recent UA. GFR 111. Monitor renal function periodically throughout admission. Continue to monitor volume status and BP due to his diastolic heart failure. Check daily weights for trending up. Recheck CBC and BMP in AM to monitor blood counts, electrolytes and renal function. Patient remains afebrile. 09/08/17 Psych: Patient reports feeling better today with increased PO intake and socialization. I believe that placement in [place] would be most beneficial for his depression as well as preventing further hospitalizations, and do not feel he would be safe to discharge to home. Vitamin B12 and folate levels still pending; continue current care and encourage participation in groups, increased socialization. 09/09/17 Psych: Continue current care - mood improving with socialization, improved nutrition, sleep. Do not believe he is safe outside of this setting at this point. Discussing options for placement with niece as increased socialization will be essential for patient to do well outside of hospital. B12 , folate WNL. 09/10/17 Psych: Continue current care - mood improving with socialization, improved nutrition, sleep. Do not believe he is safe outside of this setting at this point. Discussing options for placement with niece as increased socialization will be essential for patient to do well outside of hospital. Plan - 09/11/17: Overall, Paolo appears to be doing well. Continue psychiatric care per Dr. Ramírez. Continue to provide safe and supportive environment. Labs on 09/09 revealed hypernatremia. Discussed with patient and nursing and encouraged increased oral intake. Will recheck BMP on 09/12 to monitor electrolytes and renal function. Vital signs stable and no other concerns. 09/11/17 Psych: Continue care as above - will touch base with [facility] in regards to placement options and progress. 09/12/17 14:27 Remains depressed but improving. Continue current care 09/13/17 11:12 Continues to slowly improve. Continue current care
[2017-09-13] MEDS: MAG-AL + SIM ORAL LIQUID 30ml PO PRN (16:47)
[2017-09-13] MEDS: GABAPENTIN 300 MG CAPSULE PO SCH (21:38)
[2017-09-13] MEDS: PSYLLIUM PACKET PO SCH (21:41)
[2017-09-13] MEDS: TRAZODONE 50 MG TABLET PO SCH (21:41)
[2017-09-13] MEDS: TAMSULOSIN 0.4 MG CAPSULE PO SCH (21:41)
[2017-09-13] MEDS: ACETAMINOPHEN 325 MG TABLET PO PRN (21:41)
[2017-09-13] MEDS: BIMATOPROST 0.01% EACH EYE SCH (21:49)
[2017-09-13] MEDS: EYE EACH EYE SCH (21:49)
[2017-09-14] MEDS: FENOFIBRATE 145 MG TABLET PO SCH (08:37)
[2017-09-14] MEDS: FUROSEMIDE 40 MG TABLET PO SCH (08:37)
[2017-09-14] MEDS: NITROFURANTOIN (MACROBID) 100 MG CAPSULE PO SCH ×2 (08:37→17:01)
[2017-09-14] MEDS: ESCITALOPRAM 20 MG TABLET PO SCH (08:37)
[2017-09-14] MEDS: TIMOLOL EYE EACH EYE SCH ×2 (08:38→21:00)
[2017-09-14] MEDS: DORZOLAMIDE EACH EYE SCH ×2 (08:38→21:00)
[2017-09-14] MEDS: GABAPENTIN 600 MG TABLET PO SCH (08:38)
--- NOTE | 2017-09-14 19:18 | Neuropsych Progress Note ---
[facility] Subjective Date: 09/14/17 - Sujective/Severity of Illness Medications: Acetaminophen (Tylenol) 325 - 650 mg PO Q5H PRN PRN Reason: Discomfort Last Admin: 09/13/17 21:41 Dose: 650 mg Al Hydroxide/Mg Hydroxide (Maalox Plus) 30 ml PO Q4H PRN PRN Reason: Indigestion Last Admin: 09/13/17 16:47 Dose: 30 ml Bimatoprost (Lumigan) [address] [facility] Last Admin: 09/13/17 21:49 Dose: 1 drop Dorzolamide/Timolol (Cosopt Ocumeter Plus) 1 drops EACH EYE BID [facility] Last Admin: 09/14/17 08:38 Dose: 1 drops Escitalopram Oxalate (Lexapro) 20 mg PO DAILY [facility] Last Admin: 09/14/17 08:37 Dose: 20 mg Fenofibrate (Tricor) 145 mg PO WB [facility] Last Admin: 09/14/17 08:37 Dose: 145 mg Furosemide (Lasix) 40 mg PO QAM [facility] Last Admin: 09/14/17 08:37 Dose: 40 mg Gabapentin (Neurontin) 600 mg PO DAILY [facility] Last Admin: 09/14/17 08:38 Dose: 600 mg Gabapentin (Neurontin) 900 mg PO PM [facility] Last Admin: 09/13/17 21:38 Dose: 900 mg Haloperidol (Haldol) 0.5 mg PO Q6H PRN PRN Reason: Extreme agitation Haloperidol Lactate (Haldol) 0.5 mg IM Q6H PRN PRN Reason: Extreme agitation Hydrocortisone Acetate (Anusol-Hc Supp) 25 mg MA BID PRN PRN Reason: Hemorrhoids Lorazepam (Ativan) 0.5 mg PO Q6H PRN PRN Reason: Extreme agitation Lorazepam (Ativan Inj) 0.5 mg IM Q6H PRN PRN Reason: Extreme agitation Metoprolol Succinate (Toprol Xl) [address] [facility] Last Admin: 09/13/17 21:40 Dose: 50 mg Nitrofurantoin Macrocrystals (Macrobid) 100 mg PO BIDWM [facility] Stop: 09/14/17 23:59 Last Admin: 09/14/17 17:01 Dose: 100 mg Potassium Chloride (K-Dur) 20 meq PO TIDWM [facility] Last Admin: 09/14/17 17:02 Dose: 20 meq Psyllium Hydrophilic Mucilloid (Metamucil) [address] [facility] Last Admin: 09/13/17 21:41 Dose: Not Given Sodium Chloride (Iv Flush) 10 - 80 ml IVF PRN PRN PRN Reason: Flushing Last Admin: 09/07/17 20:41 Dose: 10 ml Tamsulosin HCl (Flomax) 0.[address] [facility] Last Admin: 09/13/17 21:41 Dose: 0.4 mg Trazodone HCl (Desyrel) [address] [facility] Last Admin: 09/13/17 21:41 Dose: 50 mg Subjective: Pt seen and chart examined. Nursing reports pt is doing well. Sleeping well and has a good appetite. On face to face the pt states he is feeling better. Mood continues to improve. Denies S/I. Feels anxiety is improved. Tolerating meds Start Time: 18:30 Stop Time: 18:45 Mental Status Exam Vitals: Last Vital Signs Temp 98.2 F 09/14/17 16:00 Pulse 67 09/14/17 16:00 Resp 16 09/14/17 16:00 BP 106/55 09/14/17 16:00 Pulse Ox 96 09/14/17 16:00 Height: 1.73 m Weight: 116 kg - Mental Status Exam Muscle Strength/Tone: Normal Dressing: Casual Grooming: Fair Attitude: Cooperative Motor Activity: Retardation Eye Contact: Poor Speech: Slowed Volume: Soft Rhythm: Appropriate Rhythm Orientation: Oriented X4 Mood: Depressed (feels mood is better but still depressed, restricted affect) Rate of Thoughts: Delayed Thought Organization: Organized Associations: Intact Abstract Reasoning: Poor abstract reasoning Thought Content: Ruminations, Hopelessness, Helplessness, Worthlessness, Other ( excessive guilt, low self-esteem) Perception/Psychotic: Perception Normal Language: Naming Intact Fund of Knowledge: Gabriel aware current events Memory: Grossly Intact Suicidal Ideation: Denies, Other (not safe outside of hospital) Homicidal Ideation: Denies Insight: Impaired Judgement: Impaired Impulse Control: Fair - Laboratory Result Diagrams: 09/12/17 06:54 09/12/17 06:54 Assessment and Plan (1) Hypertension Problem details: Continue present medications. Current visit: No Status: Chronic (2) Hypoxia Current visit: No Status: Acute (3) Congestive heart failure Qualifiers: Congestive heart failure type: unspecified congestive heart failure type Congestive heart failure chronicity: chronic Qualified Code(s): I50.9 - Heart failure, unspecified Current visit: No Status: Acute (4) MDD (major depressive disorder), recurrent severe, without psychosis Current visit: No Status: Acute Hospital Course Summary Disclaimer: The visit summary below is not to be considered part of the above Progress Note. Hospital Course: 09/07/17 IMPRESSION UTI Hyperbilirubinemia Depression Hypernatremia Chronic diastolic CHF Glaucoma HTN High triglycerides Lumbar disc disease Peripheral neuropathy PLAN Agree with admission to [facility]. Hospitalist service covering for Dr. Bajwa. GJ c/o urinary frequency; UA showed nitrates and WBC - will culture. Received Rocephin in the ED; will continue this until culture comes back. Hypernatremia, poor oral intake - ask nurses to push oral fluids. Repeat BMP in am. Diuretics were held at time of last DC but he still required KDur 20 mEq BID to maintain stable potassium level. Elevated total bili with normal values of other LFTs. Monitor. Hgb A1c was checked in Aug (5%) & TSH was normal (1.63) at that time. CXR on admit was neg for CHF/pneumonia/acute findings (mild atelectasis in bases). Of note, had bright red heme positive rectal bleeding during last hospitalization and fish oil and ASA were discontinued - hgb on admit was 15. Depression tx per attending. Thanks for this consult - we will follow Mr. Bush during his [facility] stay. Plan-09/08/17: GJ is fairly anxious on exam and eagerly awaiting morning medications. Denies SI/HI on exam. Continue psychiatric care per Dr. Ramírez and team. Continue to provide safe and supportive environment. Patient is safe for floor activities. Review of admission labs revealed hypernatremia (Na 145) - continue to encourage patient to increase oral intake. Will recheck BMP in AM to monitor electrolytes and renal function. UA revealed 5-10 WBC with early growth noted on culture. Review of prior urine culture from 08/19/17 revealed coag negative staph which was multi drug resistant. Will discontinue Rocephin and initiate macrobid 100mg BID x 7 days given prior resistance patterns while awaiting sensitivities on recent UA. GFR 111. Monitor renal function periodically throughout admission. Continue to monitor volume status and BP due to his diastolic heart failure. Check daily weights for trending up. Recheck CBC and BMP in AM to monitor blood counts, electrolytes and renal function. Patient remains afebrile. 09/08/17 Psych: Patient reports feeling better today with increased PO intake and socialization. I believe that placement in [place] would be most beneficial for his depression as well as preventing further hospitalizations, and do not feel he would be safe to discharge to home. Vitamin B12 and folate levels still pending; continue current care and encourage participation in groups, increased socialization. 09/09/17 Psych: Continue current care - mood improving with socialization, improved nutrition, sleep. Do not believe he is safe outside of this setting at this point. Discussing options for placement with niece as increased socialization will be essential for patient to do well outside of hospital. B12 , folate WNL. 09/10/17 Psych: Continue current care - mood improving with socialization, improved nutrition, sleep. Do not believe he is safe outside of this setting at this point. Discussing options for placement with niece as increased socialization will be essential for patient to do well outside of hospital. Plan - 09/11/17: Overall, Paolo appears to be doing well. Continue psychiatric care per Dr. Ramírez. Continue to provide safe and supportive environment. Labs on 09/09 revealed hypernatremia. Discussed with patient and nursing and encouraged increased oral intake. Will recheck BMP on 09/12 to monitor electrolytes and renal function. Vital signs stable and no other concerns. 09/11/17 Psych: Continue care as above - will touch base with [facility] in regards to placement options and progress. 09/12/17 14:27 Remains depressed but improving. Continue current care 09/13/17 11:12 Continues to slowly improve. Continue current care 09/14/17 19:17 Continues to improve. Continue current care
[2017-09-14] MEDS: MAG-AL + SIM ORAL LIQUID 30ml PO PRN (20:54)
[2017-09-14] MEDS: PSYLLIUM PACKET PO SCH (20:55)
[2017-09-14] MEDS: EYE EACH EYE SCH (20:58)
[2017-09-14] MEDS: BIMATOPROST 0.01% EACH EYE SCH (20:58)
[2017-09-14] MEDS: TAMSULOSIN 0.4 MG CAPSULE PO SCH (21:00)
[2017-09-14] MEDS: TRAZODONE 50 MG TABLET PO SCH (21:00)
[2017-09-14] MEDS: GABAPENTIN 300 MG CAPSULE PO SCH (21:00)
[2017-09-15] MEDS: DORZOLAMIDE EACH EYE SCH ×2 (09:11→20:20)
[2017-09-15] MEDS: FUROSEMIDE 40 MG TABLET PO SCH (09:11)
[2017-09-15] MEDS: ACETAMINOPHEN 325 MG TABLET PO PRN (09:11)
[2017-09-15] MEDS: ESCITALOPRAM 20 MG TABLET PO SCH (09:11)
[2017-09-15] MEDS: FENOFIBRATE 145 MG TABLET PO SCH (09:11)
[2017-09-15] MEDS: GABAPENTIN 600 MG TABLET PO SCH (09:11)
[2017-09-15] MEDS: TIMOLOL EYE EACH EYE SCH ×2 (09:11→20:20)
[2017-09-15] MEDS: GABAPENTIN 300 MG CAPSULE PO SCH (19:56)
[2017-09-15] MEDS: PSYLLIUM PACKET PO SCH (20:19)
[2017-09-15] MEDS: BIMATOPROST 0.01% EACH EYE SCH (20:19)
[2017-09-15] MEDS: EYE EACH EYE SCH (20:19)
[2017-09-15] MEDS: TRAZODONE 50 MG TABLET PO SCH (20:20)
[2017-09-15] MEDS: TAMSULOSIN 0.4 MG CAPSULE PO SCH (20:20)
--- NOTE | 2017-09-15 21:29 | Neuropsych Progress Note ---
[facility] Subjective Date: 09/15/17 - Sujective/Severity of Illness Medications: Acetaminophen (Tylenol) 325 - 650 mg PO Q5H PRN PRN Reason: Discomfort Last Admin: 09/15/17 09:11 Dose: 650 mg Al Hydroxide/Mg Hydroxide (Maalox Plus) 30 ml PO Q4H PRN PRN Reason: Indigestion Last Admin: 09/14/17 20:54 Dose: 30 ml Bimatoprost (Lumigan) 1 drop EACH EYE [facility] Last Admin: 09/15/17 20:19 Dose: 1 drop Dorzolamide/Timolol (Cosopt Ocumeter Plus) 1 drops EACH EYE BID [facility] Last Admin: 09/15/17 20:20 Dose: 1 drops Escitalopram Oxalate (Lexapro) 20 mg PO DAILY [facility] Last Admin: 09/15/17 09:11 Dose: 20 mg Fenofibrate (Tricor) 145 mg PO WB [facility] Last Admin: 09/15/17 09:11 Dose: 145 mg Furosemide (Lasix) 40 mg PO QAM [facility] Last Admin: 09/15/17 09:11 Dose: 40 mg Gabapentin (Neurontin) 600 mg PO DAILY [facility] Last Admin: 09/15/17 09:11 Dose: 600 mg Gabapentin (Neurontin) 900 mg PO PM [facility] Last Admin: 09/15/17 19:56 Dose: 900 mg Haloperidol (Haldol) 0.5 mg PO Q6H PRN PRN Reason: Extreme agitation Haloperidol Lactate (Haldol) 0.5 mg IM Q6H PRN PRN Reason: Extreme agitation Hydrocortisone Acetate (Anusol-Hc Supp) 25 mg SC BID PRN PRN Reason: Hemorrhoids Lorazepam (Ativan) 0.5 mg PO Q6H PRN PRN Reason: Extreme agitation Lorazepam (Ativan Inj) 0.5 mg IM Q6H PRN PRN Reason: Extreme agitation Metoprolol Succinate (Toprol Xl) 50 mg PO HS [facility] Last Admin: 09/15/17 20:20 Dose: 50 mg Potassium Chloride (K-Dur) 20 meq PO TIDWM [facility] Last Admin: 09/15/17 17:31 Dose: 20 meq Psyllium Hydrophilic Mucilloid (Metamucil) 1 packet PO HS [facility] Last Admin: 09/15/17 20:19 Dose: 1 packet Sodium Chloride (Iv Flush) 10 - 80 ml IVF PRN PRN PRN Reason: Flushing Last Admin: 09/07/17 20:41 Dose: 10 ml Tamsulosin HCl (Flomax) 0.4 mg PO [facility] Last Admin: 09/15/17 20:20 Dose: 0.4 mg Trazodone HCl (Desyrel) 50 mg PO [facility] Last Admin: 09/15/17 20:20 Dose: 50 mg Subjective: Patient seen and chart reviewed. Case discussed with treatment team. On interview, patient is pleasant and cooperative though believed to have social anxiety at baseline. He reports feeling better from admission, is more future-oriented and denies any desire to refuse meds or food to harm himself. He inquires about his medications and discharge plans. He is in agreement with living with niece until he can be placed in [place]. Patient denies any SI, HI or AVH. Patient denies any adverse side effects related to psychotropic medications. Nursing staff report patient has been pleasant, cooperative, and adherent with medications. Patient slept well overnight. VSS. Patient is eating well. Psychotropic PRNs required in the past 24 hours: none. Start Time: 15:20 Stop Time: 15:40 Mental Status Exam Vitals: Last Vital Signs Temp 97.2 F 09/15/17 16:00 Pulse 65 09/15/17 16:00 Resp 18 09/15/17 16:00 BP 115/64 09/15/17 16:00 Pulse Ox 96 09/15/17 16:00 Height: 1.73 m Weight: 115 kg - Mental Status Exam Muscle Strength/Tone: Normal Dressing: Casual Grooming: Fair Attitude: Cooperative Motor Activity: Retardation Eye Contact: Other (Limited - believed to be due to social anxiety) Speech: Slowed Volume: Soft Rhythm: Appropriate Rhythm Orientation: Oriented X4 Mood: Neutral (smiles slightly but patient is quite shy at baseline) Rate of Thoughts: Appropriate Rate Thought Organization: Organized Associations: Intact Abstract Reasoning: Intact, able to abstract Thought Content: Other (low self-esteem) Perception/Psychotic: Perception Normal Language: Naming Intact Fund of Knowledge: Gabriel aware current events Memory: Grossly Intact Suicidal Ideation: Denies, Other (not safe outside of hospital) Homicidal Ideation: Denies Insight: Fair Judgement: Fair Impulse Control: Good - Laboratory Result Diagrams: 09/12/17 06:54 09/12/17 06:54 Assessment and Plan (1) MDD (major depressive disorder), recurrent severe, without psychosis Current visit: No Status: Acute (2) Hypoxia Current visit: No Status: Acute (3) Congestive heart failure Qualifiers: Congestive heart failure type: unspecified congestive heart failure type Congestive heart failure chronicity: chronic Qualified Code(s): I50.9 - Heart failure, unspecified Current visit: No Status: Acute (4) Hypertension Problem details: Continue present medications. Current visit: No Status: Chronic Hospital Course Summary Disclaimer: The visit summary below is not to be considered part of the above Progress Note. Hospital Course: 09/07/17 IMPRESSION UTI Hyperbilirubinemia Depression Hypernatremia Chronic diastolic CHF Glaucoma HTN High triglycerides Lumbar disc disease Peripheral neuropathy PLAN Agree with admission to [facility]. Hospitalist service covering for Dr. Bajwa. GJ c/o urinary frequency; UA showed nitrates and WBC - will culture. Received Rocephin in the ED; will continue this until culture comes back. Hypernatremia, poor oral intake - ask nurses to push oral fluids. Repeat BMP in am. Diuretics were held at time of last DC but he still required KDur 20 mEq BID to maintain stable potassium level. Elevated total bili with normal values of other LFTs. Monitor. Hgb A1c was checked in Oct (5%) & TSH was normal (1.63) at that time. CXR on admit was neg for CHF/pneumonia/acute findings (mild atelectasis in bases). Of note, had bright red heme positive rectal bleeding during last hospitalization and fish oil and ASA were discontinued - hgb on admit was 15. Depression tx per attending. Thanks for this consult - we will follow Mr. Bush during his [facility] stay. Plan-09/08/17: GJ is fairly anxious on exam and eagerly awaiting morning medications. Denies SI/HI on exam. Continue psychiatric care per Dr. Ramírez and team. Continue to provide safe and supportive environment. Patient is safe for floor activities. Review of admission labs revealed hypernatremia (Na 145) - continue to encourage patient to increase oral intake. Will recheck BMP in AM to monitor electrolytes and renal function. UA revealed 5-10 WBC with early growth noted on culture. Review of prior urine culture from 08/19/17 revealed coag negative staph which was multi drug resistant. Will discontinue Rocephin and initiate macrobid 100mg BID x 7 days given prior resistance patterns while awaiting sensitivities on recent UA. GFR 111. Monitor renal function periodically throughout admission. Continue to monitor volume status and BP due to his diastolic heart failure. Check daily weights for trending up. Recheck CBC and BMP in AM to monitor blood counts, electrolytes and renal function. Patient remains afebrile. 09/08/17 Psych: Patient reports feeling better today with increased PO intake and socialization. I believe that placement in [place] would be most beneficial for his depression as well as preventing further hospitalizations, and do not feel he would be safe to discharge to home. Vitamin B12 and folate levels still pending; continue current care and encourage participation in groups, increased socialization. 09/09/17 Psych: Continue current care - mood improving with socialization, improved nutrition, sleep. Do not believe he is safe outside of this setting at this point. Discussing options for placement with niece as increased socialization will be essential for patient to do well outside of hospital. B12 , folate WNL. 09/10/17 Psych: Continue current care - mood improving with socialization, improved nutrition, sleep. Do not believe he is safe outside of this setting at this point. Discussing options for placement with niece as increased socialization will be essential for patient to do well outside of hospital. Plan - 09/11/17: Overall, Paolo appears to be doing well. Continue psychiatric care per Dr. Ramírez. Continue to provide safe and supportive environment. Labs on 09/09 revealed hypernatremia. Discussed with patient and nursing and encouraged increased oral intake. Will recheck BMP on 09/12 to monitor electrolytes and renal function. Vital signs stable and no other concerns. 09/11/17 Psych: Continue care as above - will touch base with nihailee in regards to placement options and progress. 09/12/17 14:27 Remains depressed but improving. Continue current care 09/13/17 11:12 Continues to slowly improve. Continue current care 09/14/17 19:17 Continues to improve. Continue current care 09/15/17 Psych: Continue current care until 09/16 - patient is appropriate for transition to outpatient psychiatric care. Patient will move in with niece until he can be placed in [place] facility. Patient will have outpatient psychiatric care at [facility].
[2017-09-16 08:14] VITALS: BP 139/72; PULSE 91; RESP 22; TEMP 97.6; O2SAT 97
[2017-09-16] MEDS: FUROSEMIDE 40 MG TABLET PO SCH (08:23)
[2017-09-16] MEDS: ESCITALOPRAM 20 MG TABLET PO SCH (08:23)
[2017-09-16] MEDS: GABAPENTIN 600 MG TABLET PO SCH (08:23)
[2017-09-16] MEDS: TIMOLOL EYE EACH EYE SCH (08:23)
[2017-09-16] MEDS: DORZOLAMIDE EACH EYE SCH (08:23)
[2017-09-16] MEDS: FENOFIBRATE 145 MG TABLET PO SCH (08:23)
== END 2017-09-16 14:30 | disposition home or self-care (01) | DRG 885 ==
LOC: ED 04:22 → GEN 11:29
PROVIDERS: ADMIT Psychiatry & Neurology Psychiatry; ATTEND Psychiatry & Neurology Psychiatry